=== PATIENT | male | born 1945 | race Caucasian/White ===

== ENCOUNTER 2016-10-11 09:18 | Observation (INO) | payer OTHER ==
[2016-10-11] MEDS ORDERED: NS 1,000 ML IV ONE (09:21)
[2016-10-11] MEDS ORDERED: diphenhydrAMINE 25 MG CAP PO ONE (09:21)
[2016-10-11] MEDS ORDERED: FAMOTIDINE 20 MG TAB PO ONE (09:21)
[2016-10-11] MEDS ORDERED: ASPIRIN EC 325 MG TAB PO ONE (09:21)
[2016-10-11] MEDS ORDERED: DIAZEPAM 5 MG TAB PO ONE (09:21)
--- NOTE | 2016-10-11 09:38 | CPEKG ---
Heart Rate: 75 RR Interval: 800 P-R Interval: 152 QRSD Interval: 90 QT Interval: 364 QTC Interval: 407 P [place]: 64 QRS [place]: -56 T Wave [place]: 52 EKG Severity - ABNORMAL ECG - EKG Impression: SINUS ARRHYTHMIA, RATE 60-87 EKG Impression: LEFT ANTERIOR FASCICULAR BLOCK EKG Impression: LOW VOLTAGE IN FRONTAL LEADS EKG Impression: MINIMAL ST DEPRESSION, ANTEROLATERAL LEADS Preliminary Awaiting MD Review
[2016-10-11] MEDS ORDERED: LIDOCAINE 1% 30 ML SDV ONE (09:51)
[2016-10-11] MEDS ORDERED: IOPAMIDOL (ISOVUE-370) 150 ML BTL IV ONE ×2 (09:52→10:51)
[2016-10-11] MEDS ORDERED: VERAPAMIL 5 MG/2 ML VIAL ONE (09:52)
[2016-10-11] MEDS ORDERED: MIDAZOLAM 2 MG/2 ML VIAL ONE (09:52)
[2016-10-11] MEDS ORDERED: fentaNYL 100 MCG/2 ML INJ ONE (09:52)
[2016-10-11] MEDS ORDERED: HEPARIN 10,000 UNIT/10 ML MDV ONE (09:52)
[2016-10-11 09:54] LABS: % IMMATURE GRANULYOCYTES 0.5 % (0.0-1.1); ABSOLUTE IMMATURE GRANULOCYTES 0.04 10^3/uL (0.00-0.10); ADD DIFF? NO; ADD MORPH? NO; ADD SCAN? NO; ATYPICAL LYMPHOCYTE FLAG 0 (0-99); FRAGMENT RBC FLAG 0 (0-99); HEMATOCRIT 43.8 % (40.0-51.0); HEMOGLOBIN 14.8 g/dL (13.7-17.5); LEFT SHIFT FLG 0 (0-99); LIPEMIA HEMOLYSIS FLAG 90 (0-99); MEAN CELL HEMOGLOBIN 32.5 pg (27.9-34.1); MEAN CELL HEMOGLOBIN CONCENTR. 33.8 g/dL (32.4-36.7); MEAN CELL VOLUME 96.3 fL (81.5-99.8); PLATELET CLUMPS FLAG 0 (0-99); PLATELET COUNT 273 10^3/uL (150-400); RED BLOOD CELL COUNT 4.55 10^6/uL (4.40-6.38); RED CELL DISTRIBUTION WIDTH 14.4 % (11.5-15.2)
[2016-10-11 10:11] LABS: INR 0.97 (0.83-1.16); PROTIME(PATIENT) 12.8 SEC (12.0-15.0)
[2016-10-11 10:15] LABS: ANION GAP 14 mEq/L (8-16); CALCIUM 9.9 mg/dL (8.5-10.4); CARBON DIOXIDE 21 mEq/l (22-31); CHLORIDE 108 mEq/L (97-110); CHOLESTEROL 259 mg/dL (140-220); GLOMERULAR FILTRATION RATE > 60; GLUCOSE 132 mg/dL (70-100); HIGH DENSITY LIPOPROTEIN 37 mg/dL (40-65); LOW DENSITY LIPOPROTEIN 151 mg/dL (80-100); POTASSIUM 4.2 mEq/L (3.5-5.2); SODIUM 143 mEq/L (134-144); TRIGLYCERIDE 355 mg/dL (40-150); VERY LOW DENSITY LIPOPROTEINS 71 mg/dL (8-25)
[2016-10-11 10:16] LABS: LDL/HDL RATIO 4.08 RATIO (1.00-3.64); MAGNESIUM 1.9 mg/dL (1.6-2.3); NON-HIGH DENSITY LIPOPROTEIN 222 mg/dL (90-129)
[2016-10-11] MEDS ORDERED: BIVALIRUDIN 250 MG/5 ML VIAL IV ONE (10:54)
[2016-10-11] MEDS ORDERED: NITROGLYCERIN 1,500 MCG/15 ML VIAL MISC ONE (11:12)
--- NOTE | 2016-10-11 11:40 | CPEKG ---
Heart Rate: 71 RR Interval: 845 P-R Interval: 168 QRSD Interval: 92 QT Interval: 416 QTC Interval: 453 P [place]: 74 QRS [place]: -33 T Wave [place]: 13 EKG Severity - OTHERWISE NORMAL ECG - EKG Impression: SINUS RHYTHM EKG Impression: LEFT AXIS DEVIATION EKG Impression: LOW VOLTAGE IN FRONTAL LEADS Preliminary Awaiting MD Review
[2016-10-11] MEDS ORDERED: OXYCODONE/APAP 5/325 TAB PO PRN (11:42)
[2016-10-11] MEDS ORDERED: PRASUGREL HCL 10 MG TAB PO ONE (11:42)
[2016-10-11] MEDS ORDERED: TEMAZEPAM 15 MG CAP PO PRN (11:42)
[2016-10-11] MEDS ORDERED: ONDANSETRON 4 MG/2 ML VIAL IVP PRN (11:42)
[2016-10-11] MEDS ORDERED: LORazepam 2 MG/ML INJ IVP PRN (11:42)
[2016-10-11] MEDS ORDERED: ATROPINE SULFATE 1 MG/10 ML SYR IVP PRN (11:42)
[2016-10-11] MEDS ORDERED: HYDROCODONE/APAP 5/325 TAB PO PRN (11:42)
[2016-10-11] MEDS ORDERED: PRASUGREL HCL 10 MG TAB ONE (11:48)
--- NOTE | 2016-10-11 13:16 | CPIP ---
DATE OF PROCEDURE: 10/11/2016 PROCEDURES: 1. Coronary angiography. 2. Left ventriculography. 3. Stenting of right coronary artery with Synergy drug-eluting stent. INDICATION: 1. Known coronary artery disease status post previous percutaneous coronary intervention of the cir cumflex and right coronary arteries. 2. Class 3 anginal symptoms. 3. Intermediate risk stress test. 4. Maximally tolerated medical therapy in this gentleman, who has a difficult time tolerating most medications. ACCESS: Patient was prepped and draped in sterile fashion. 1% lidocaine was used to anesthetize th e right inguinal region. A 6-Estonian introducer sheath was placed selectively into the right common femoral artery via modified Seldinger technique. CORONARY ANGIOGRAPHY: A 6-Estonian JL4 was advanced to the left main coronary artery and images obtai yumiko. The left main coronary artery bifurcated into an LAD and circumflex coronary arteries. The le ft main coronary artery appeared normal. The left anterior descending coronary artery gave rise to 2 diagonal branches. The left anterior descending coronary artery is diffusely diseased. In the mi dvessel, a segmental 40% to 50%stenosis can be seen. The diagonal arteries are free of any signific ant disease. Circumflex coronary artery is a large vessel, but is nondominant. Circumflex coronary artery is diffusely diseased. In the proximal segment, there is a long segmental 30% stenosis pres ent. In the mid 1 segment of the vessel, a previously placed stent can be seen. The previously plac ed stent is widely patent with no evidence of in-stent restenosis. In the distal vessel, a previous ly placed stent can be seen. The distal stent is free of any significant in-stent restenosis. The circumflex coronary artery gave rise to 4 OM branches. The OM branches had no significant flow-limi ting disease. A 6-Estonian JR4 was advanced to the right coronary artery and images obtained. The ri ght coronary artery is dominant. The right coronary artery is diffusely diseased. In the proximal segment of the right coronary artery, there is a discrete 76% stenosis present. In the mid 1 segmen t, there is a segmental 30% to 40% stenosis present. In the mid 2 segment, a previously placed sten t can be seen. The previously placed stent was widely patent with no evidence of in-stent restenosi s. LEFT VENTRICULOGRAPHY: A 6-Estonian pigtail catheter was advanced to the left ventricle and images ob tained. Left ventricle is normal in size, had normal systolic function. Estimated ejection fractio n is 65%. PERCUTANEOUS CORONARY INTERVENTION OF THE RIGHT CORONARY ARTERY: A 6-Estonian JR4 with side holes was advanced to the right coronary artery and images obtained. Angiography confirmed the presence of a 76% stenosis in the proximal portion of the right coronary artery. A Luge wire was placed in the d istal vessel and position verified by angiography. A 3.0 x 12 Synergy drug-eluting stent was placed across the lesion and deployed at 16 atmospheres. Followup angiography demonstrated incomplete ashleigh nt expansion in the midportion of the stent. The midportion of the stent was postdilated with a 3.5 x 8 Quantum Clark. COMPLICATIONS: None. CONCLUSIONS: 1. Patent circumflex stents with no evidence of in-stent restenosis. 2. Patent right coronary artery stent with no evidence of in-stent restenosis. 3. De cary 76% stenosis of the proximal right coronary artery. 4. Status post successful percutaneous coronary intervention of the right coronary artery using Syn ergy drug-eluting stent. /[id number]/MODL
[2016-10-11] MEDS ORDERED: NITROGLYCERIN 0.4 MG BTL SL PRN (13:20)
[2016-10-11] MEDS: NICOTINE 14 MG/24 HR PATCH TD SCH (13:24)
[2016-10-11] MEDS ORDERED: LOSARTAN POTASSIUM 50 MG TAB PO SCH (18:00)
[2016-10-11] MEDS ORDERED: traZODone 100 MG TAB PO SCH (21:00)
[2016-10-11] MEDS ORDERED: ABACAVIR SULFATE PO SCH ×2 (21:00)
[2016-10-11] MEDS ORDERED: EFAVIRENZ 600 MG TAB PO SCH (21:00)
[2016-10-11] MEDS ORDERED: LAMIVUDINE PO SCH ×2 (21:00)
[2016-10-12 05:24] LABS: % IMMATURE GRANULYOCYTES 0.3 % (0.0-1.1); ABSOLUTE IMMATURE GRANULOCYTES 0.02 10^3/uL (0.00-0.10); ADD DIFF? NO; ADD MORPH? NO; ADD SCAN? NO; ATYPICAL LYMPHOCYTE FLAG 10 (0-99); FRAGMENT RBC FLAG 0 (0-99); HEMATOCRIT 41.9 % (40.0-51.0); LEFT SHIFT FLG 0 (0-99); LIPEMIA HEMOLYSIS FLAG 80 (0-99); MEAN CELL HEMOGLOBIN 32.9 pg (27.9-34.1); MEAN CELL HEMOGLOBIN CONCENTR. 33.4 g/dL (32.4-36.7); MEAN CELL VOLUME 98.4 fL (81.5-99.8); MEAN PLATELET VOLUME 9.5 fL (8.7-11.7); PLATELET CLUMPS FLAG 0 (0-99); PLATELET COUNT 246 10^3/uL (150-400); RED BLOOD CELL COUNT 4.26 10^6/uL (4.40-6.38); RED CELL DISTRIBUTION WIDTH 14.5 % (11.5-15.2)
[2016-10-12 05:41] LABS: ANION GAP 8 mEq/L (8-16); CALCIUM 9.4 mg/dL (8.5-10.4); CARBON DIOXIDE 26 mEq/l (22-31); CHLORIDE 106 mEq/L (97-110); GLOMERULAR FILTRATION RATE > 60; GLUCOSE 108 mg/dL (70-100); POTASSIUM 4.2 mEq/L (3.5-5.2); SODIUM 140 mEq/L (134-144)
[2016-10-12] MEDS ORDERED: CHOLECALCIFEROL VIT D3 1,000 UNITS TAB PO SCH (09:00)
[2016-10-12] MEDS ORDERED: ASPIRIN EC 325 MG TAB PO SCH ×2 (09:00)
[2016-10-12] MEDS ORDERED: PRASUGREL HCL 10 MG TAB PO SCH ×2 (09:00)
--- NOTE | 2016-10-12 09:08 | CPEKG ---
Heart Rate: 66 RR Interval: 909 P-R Interval: 160 QRSD Interval: 94 QT Interval: 424 QTC Interval: 445 P [place]: 60 QRS [place]: -23 T Wave [place]: 3 EKG Severity - OTHERWISE NORMAL ECG - EKG Impression: SINUS RHYTHM EKG Impression: BORDERLINE LEFT AXIS DEVIATION Preliminary Awaiting MD Review
[2016-10-12] MEDS: NICOTINE 14 MG/24 HR PATCH TD SCH (09:45)
[2016-10-12 11:23] VITALS: BP 132/74; PULSE 85; RESP 12; TEMP 99.1; O2SAT 92
--- NOTE | 2016-10-12 18:27 | GDS ---
ADMIT DIAGNOSES: 1. Known coronary artery disease. 2. Class 3 anginal symptoms. 3. Plan cardiac angiogram with possible percutaneous coronary intervention. DISCHARGE DIAGNOSES: 1. Coronary artery disease. 2. Status post placement of Synergy drug-eluting stent of the right coronary artery with no complications. COURSE OF HOSPITALIZATION: This gentleman is well known to Dr. Demond Miller. He was seen in clinic with symptoms of angina. He had an intermediate risk stress test done. It was recommended that he proceed for further cardiac evaluation with cardiac angiogram. Mr. Nath was in agreement with this plan. He was taken to the [facility] lab[facility] by Dr. Demond Miller on 10/11/2016. In the proximal segment of the right coronary artery, a 76% stenosis was present. A previously placed stent was widely patent in the vessel. No evidence of in- stent restenosis. Dr. Miller was able to place a Synergy drug-eluting stent across the lesion in the proximal portion of the right coronary artery. There were no complications. He was taken to PCU for overnight observation where he has done well. He has been ambulating the halls with no bleeding or tenderness of the groin sites. At this time, he is stable for discharge. ALLERGIES: He has intolerance to statins. HOME MEDICATIONS: Paxil 30 mg daily, Sustiva 600 mg at HS, vitamin D3 2000 units daily, Valium 5 mg as needed at bedtime, Effient 10 mg daily, trazodone 50 mg at bedtime, Imodium 4 mg daily, morphine IR 7.5 mg daily as needed for pain, herbal supplements daily, Depo-testosterone 100 mg IM every 14 days, aspirin 325 mg daily, Tylenol 325 mg 1-2 tablets every 4 hours as needed for pain, not to exceed 3 g daily, Cozaar 50 mg daily, NicoDerm CQ patch 14 mg transdermal daily. EXAM: VITAL SIGNS: On day of discharge, blood pressure 132/74, heart rate 85 and regular, oxygen saturation 92%, temperature 37.3. EKG shows normal sinus rhythm with no ectopy. HEART: Rate regular; no murmurs, rubs, gallops. LUNGS : Sounds are clear to auscultation. No wheezes, rales, or rhonchi. Right groin site is intact with no bleeding, induration or tenderness. No femoral bruit is noted. Peripheral pulses bilaterally 2+. DISCHARGE PLAN: He will follow up in [address] Miller on Tuesday, October 20 at our [facility] office. Groin site instructions were provided, written and verbally. No heavy lifting, pushing, pulling greater than 10 pounds. No tub baths over the next 7 days. Should groin site bleed, go to the nearest emergency room, holding firm pressure to the site. Recommendation for participation in cardiac rehab. He is to follow a low-fat, low-sodium diet. Should he have any problems or questions, he is to call our office. At this time, he currently is stable for discharge. /[id number]/MODL MTDD
== END 2016-10-12 13:44 | disposition home or self-care (01) ==
LOC: FCATH 09:18 → F2W 11:44
PROVIDERS: ADMIT Internal Medicine Cardiovascular Disease; ATTEND Internal Medicine Cardiovascular Disease
PROC: 4A023N7 Measurement of Cardiac Sampling and Pressure, Left Heart, Percutaneous Approach (ICD-10-PCS; principal; 2016-10-11)
PROC: B2151ZZ Fluoroscopy of Left Heart using Low Osmolar Contrast (ICD-10-PCS; principal; 2016-10-11)
PROC: 027034Z Dilation of Coronary Artery, One Artery with Drug-eluting Intraluminal Device, Percutaneous Approach (ICD-10-PCS; principal; 2016-10-11)
PROC: B2111ZZ Fluoroscopy of Multiple Coronary Arteries using Low Osmolar Contrast (ICD-10-PCS; principal; 2016-10-11)
DX: I25.119 Atherosclerotic heart disease of native coronary artery with unspecified angina pectoris (principal)
CPT/HCPCS: 93005; 93458; C1725; C1760; C1769; C1874; C1887; C9600; G0378; J0583; J1644; J2250; J3010; Q9967

== ENCOUNTER → 2017-04-18 | Outpatient (CLI) | payer OTHER | LOC: FIMAGING 16:35 | PROVIDERS: ATTEND Nurse Practitioner | DX: J98.11 Atelectasis (principal) ==

== ENCOUNTER 2017-05-10 08:46 | Observation (INO) | payer OTHER ==
[2017-05-10] MEDS ORDERED: diphenhydrAMINE 25 MG CAP PO ONE ×2 (08:51→09:19)
[2017-05-10] MEDS ORDERED: DIAZEPAM 5 MG TAB PO ONE (08:51)
[2017-05-10] MEDS ORDERED: ASPIRIN EC 325 MG TAB PO ONE (08:51)
[2017-05-10] MEDS ORDERED: NS 1,000 ML IV ONE (08:51)
[2017-05-10] MEDS ORDERED: FAMOTIDINE 20 MG TAB PO ONE (08:51)
[2017-05-10] MEDS ORDERED: FAMOTIDINE 20 MG TAB ONE (09:19)
[2017-05-10] MEDS ORDERED: DIAZEPAM 5 MG TAB ONE (09:20)
--- NOTE | 2017-05-10 09:21 | CPEKG ---
Heart Rate: 90 RR Interval: 667 P-R Interval: 160 QRSD Interval: 94 QT Interval: 368 QTC Interval: 451 P [place]: 70 QRS [place]: -24 T Wave [place]: 27 EKG Severity - OTHERWISE NORMAL ECG - EKG Impression: SINUS RHYTHM EKG Impression: BORDERLINE LEFT AXIS DEVIATION Electronically Signed By: Min Rashid 10-May-2017 10:43:03
[2017-05-10 09:28] LABS: % IMMATURE GRANULYOCYTES 0.5 % (0.0-1.1); ABSOLUTE IMMATURE GRANULOCYTES 0.04 10^3/uL (0.00-0.10); ADD DIFF? NO; ADD MORPH? NO; ADD SCAN? NO; ATYPICAL LYMPHOCYTE FLAG 0 (0-99); FRAGMENT RBC FLAG 0 (0-99); HEMATOCRIT 41.5 % (40.0-51.0); HEMOGLOBIN 13.5 g/dL (13.7-17.5); LEFT SHIFT FLG 0 (0-99); LIPEMIA HEMOLYSIS FLAG 80 (0-99); MEAN CELL HEMOGLOBIN 30.8 pg (27.9-34.1); MEAN CELL HEMOGLOBIN CONCENTR. 32.5 g/dL (32.4-36.7); MEAN CELL VOLUME 94.7 fL (81.5-99.8); MEAN PLATELET VOLUME 9.1 fL (8.7-11.7); PLATELET CLUMPS FLAG 0 (0-99); PLATELET COUNT 301 10^3/uL (150-400); RED BLOOD CELL COUNT 4.38 10^6/uL (4.40-6.38); RED CELL DISTRIBUTION WIDTH 14.9 % (11.5-15.2)
[2017-05-10 09:37] LABS: INR 0.96 (0.83-1.16); PROTIME(PATIENT) 12.7 SEC (12.0-15.0)
[2017-05-10 09:44] LABS: ANION GAP 14 mEq/L (8-16); CALCIUM 10.1 mg/dL (8.5-10.4); CARBON DIOXIDE 21 mEq/l (22-31); CHLORIDE 105 mEq/L (97-110); CHOLESTEROL 246 mg/dL (140-220); CHOLESTEROL/HDL RATIO 6.31 RATIO (1.00-4.97); CREATININE 1.2 mg/dL (0.7-1.3); GLOMERULAR FILTRATION RATE 60; GLUCOSE 125 mg/dL (70-100); HIGH DENSITY LIPOPROTEIN 39 mg/dL (40-65); LDL/HDL RATIO 3.67 RATIO (1.00-3.64); LOW DENSITY LIPOPROTEIN 143 mg/dL (80-100); NON-HIGH DENSITY LIPOPROTEIN 207 mg/dL (90-129); POTASSIUM 4.1 mEq/L (3.5-5.2); SODIUM 140 mEq/L (134-144); TRIGLYCERIDE 324 mg/dL (40-150); VERY LOW DENSITY LIPOPROTEINS 64 mg/dL (8-25)
[2017-05-10] MEDS ORDERED: IOPAMIDOL (ISOVUE-370) 150 ML BTL IV ONE (09:50)
[2017-05-10] MEDS ORDERED: LIDOCAINE 1% 300 MG/30 ML SDV ONE (09:50)
[2017-05-10] MEDS ORDERED: fentaNYL 100 MCG/2 ML INJ ONE (09:59)
[2017-05-10] MEDS ORDERED: MIDAZOLAM 2 MG/2 ML VIAL ONE (09:59)
--- NOTE | 2017-05-10 10:12 | PDPROPOC ---
Sedation Plan of Care Sedation Plan of Care: vital signs stable, mental status noted, patient educated of risks, benefits, alternatives, patient can tolerate sedation ASA Classification: ASA 2 Planned drugs: fentanyl, midazolam Mallampati Score: Class 2 Mallampati Reference Image: Patient passed 3-3-2 rule?: Yes
--- NOTE | 2017-05-10 10:12 | PDHPUP ---
History & Physical Update H&P update statement: This history and physical update is based on an assessment of the patient which was completed after admission or registration (within 24 hours), but prior to the surgery/procedure. H&P update: H&P reviewed & patient examined, no change in patient's condition since H&P completed
[2017-05-10] MEDS ORDERED: BIVALIRUDIN 250 MG/5 ML VIAL IV ONE (10:48)
[2017-05-10] MEDS ORDERED: NITROGLYCERIN 1,500 MCG/15 ML VIAL MISC ONE (10:48)
[2017-05-10] MEDS ORDERED: PRASUGREL HCL 10 MG TAB ONE (11:11)
[2017-05-10] MEDS ORDERED: ATROPINE SULFATE 1 MG/10 ML SYR IVP PRN (11:25)
[2017-05-10] MEDS ORDERED: LORazepam 2 MG/ML INJ IVP PRN (11:25)
[2017-05-10] MEDS ORDERED: TEMAZEPAM 15 MG CAP PO PRN (11:25)
[2017-05-10] MEDS ORDERED: ONDANSETRON 4 MG/2 ML VIAL IVP PRN (11:25)
[2017-05-10] MEDS ORDERED: NITROGLYCERIN 0.4 MG BTL SL PRN (11:25)
[2017-05-10] MEDS ORDERED: TESTOSTERONE CYP IM SCH (11:30)
--- NOTE | 2017-05-10 11:53 | CPEKG ---
Heart Rate: 79 RR Interval: 759 P-R Interval: 168 QRSD Interval: 94 QT Interval: 396 QTC Interval: 455 P [place]: 71 QRS [place]: -28 T Wave [place]: -6 EKG Severity - BORDERLINE ECG - EKG Impression: SINUS RHYTHM EKG Impression: BORDERLINE LEFT AXIS DEVIATION EKG Impression: LOW VOLTAGE IN FRONTAL LEADS EKG Impression: BORDERLINE T ABNORMALITIES, INFERIOR LEADS Electronically Signed By: Min Rashid 10-May-2017 12:00:58
--- NOTE | 2017-05-10 11:59 | CPIP ---
[f rep st] INVASIVE CARDIAC PROCEDURE DATE OF PROCEDURE: 05/10/2017 PROCEDURE: 1. Coronary angiography. 2. Left ventriculography. 3. Stenting of circumflex coronary artery with Synergy drug-eluting stent. INDICATION: 1. Class 3 angina. 2. Known coronary artery disease. 3. On maximally tolerated medical therapy. ACCESS: The patient was prepped and draped in sterile fashion. 1% lidocaine was used to anesthetize the right inguinal region. A 6-Colombian introducer sheath was placed selectively into the right commo n femoral artery via modified Seldinger technique. CORONARY ANGIOGRAPHY: A 6-Colombian JL4 was advanced to the left main coronary artery and images obtain ed. The left main coronary artery bifurcated into LAD and circumflex coronary arteries. The left ma in coronary artery appeared normal. The left anterior descending coronary artery is diffusely diseas ed. In the midvessel, there is a long segmental 40% to 50% stenosis present. The left anterior desc ending coronary artery gave rise to 3 diagonal branches. The diagonal branches were free of any sign ificant disease. The circumflex coronary artery is a large vessel, but was nondominant. Circumflex coronary artery was diffusely diseased. In the mid 1 segment, a previously placed stent can be seen. The previously placed stent is widely patent, with no evidence of in-stent restenosis. In the mid 2 segment, there is a de Vadim 80% stenosis present with TOVA-3 flow distally. A 6-Colombian JR4 was advanced to the right coronary artery and it was obtained. The right coronary art jose martin is diffusely diseased. In the proximal segment, a previously placed stent can be seen. The prev iously placed stent is widely patent with no evidence of in-stent restenosis. In the mid 2 segment, a previously placed stent can be seen. The previously placed stent is widely patent with no evidence of in-stent restenosis. In the mid segment, there is a long segmental 30% to 40% stenosis present. LEFT VENTRICULOGRAPHY: A 6-Colombian pigtail catheter was advanced in the left ventricle and images obt ained. The left ventricle is normal in size and has normal systolic function, with an estimated ejec tion fraction of 60%. PERCUTANEOUS CORONARY INTERVENTION OF THE CIRCUMFLEX CORONARY ARTERY: A 6-Colombian EBU 3.75 catheter w as advanced to the left main coronary artery and images obtained. Angiography demonstrated 80% steno sis in the mid 2 segment of the circumflex coronary artery. A Luge wire was placed in the distal vessel and position verified by angiography. The lesion was pre dilated with a 2.5 x 12 Emerge balloon. Followup angiography demonstrated TOVA-3 flow. However, the re was significant residual stenosis. A 2.75 x 12 Synergy drug-eluting stent was then placed across the lesion and deployed. Followup serafin ography demonstrated TOVA-3 flow. No residual stenosis. COMPLICATIONS: None. CONCLUSIONS: 1. Patent right coronary artery stents. 2. 80% stenosis in the mid 2 segment of the circumflex coronary artery. 3. Normal left ventricular systolic function. 4. Status post successful percutaneous coronary intervention of the circumflex coronary artery using Synergy drug-eluting stents. /[id number]/MODL
--- NOTE | 2017-05-10 15:08 | ASMTCMCOM ---
CM Note CM Note Notes: 05/10/2017 Case Management Note: Reviewed chart, pt admitted for scheduled procedure. No case management d/c needs identified at this time. No PT/OT evals ordered. Case Management d/c poc: Home Independent when medically stable. Case Management available if needs change. Date Signed: 05/10/2017 03:07 PM Electronically Signed By:Gina Bergman RN
[2017-05-10] MEDS: HYDROCORTISONE 1% CREAM TP SCH (20:29)
[2017-05-10] MEDS ORDERED: traZODone 50 MG TAB PO SCH (21:00)
[2017-05-10] MEDS ORDERED: EFAVIRENZ 600 MG TAB PO SCH (21:00)
[2017-05-10] MEDS ORDERED: ABACAVIR SULFATE PO SCH ×2 (21:00)
[2017-05-10] MEDS ORDERED: OMEGA-3 FATTY ACIDS 1,000 MG CAP PO SCH (21:00)
[2017-05-10] MEDS ORDERED: LAMIVUDINE PO SCH ×2 (21:00)
[2017-05-10] MEDS ORDERED: LOSARTAN POTASSIUM 25 MG TAB PO SCH (21:00)
[2017-05-11 05:39] LABS: % IMMATURE GRANULYOCYTES 0.3 % (0.0-1.1); ABSOLUTE IMMATURE GRANULOCYTES 0.02 10^3/uL (0.00-0.10); ADD DIFF? NO; ADD MORPH? NO; ADD SCAN? NO; ATYPICAL LYMPHOCYTE FLAG 10 (0-99); FRAGMENT RBC FLAG 0 (0-99); HEMATOCRIT 39.5 % (40.0-51.0); HEMOGLOBIN 12.7 g/dL (13.7-17.5); LEFT SHIFT FLG 0 (0-99); LIPEMIA HEMOLYSIS FLAG 80 (0-99); MEAN CELL HEMOGLOBIN 30.5 pg (27.9-34.1); MEAN CELL HEMOGLOBIN CONCENTR. 32.2 g/dL (32.4-36.7); MEAN CELL VOLUME 94.7 fL (81.5-99.8); MEAN PLATELET VOLUME 9.2 fL (8.7-11.7); PLATELET CLUMPS FLAG 10 (0-99); PLATELET COUNT 274 10^3/uL (150-400); RED BLOOD CELL COUNT 4.17 10^6/uL (4.40-6.38); RED CELL DISTRIBUTION WIDTH 14.8 % (11.5-15.2)
[2017-05-11 05:49] LABS: ANION GAP 9 mEq/L (8-16); CALCIUM 9.7 mg/dL (8.5-10.4); CARBON DIOXIDE 25 mEq/l (22-31); CHLORIDE 104 mEq/L (97-110); CREATININE 1.3 mg/dL (0.7-1.3); GLOMERULAR FILTRATION RATE 55; GLUCOSE 89 mg/dL (70-100); POTASSIUM 4.7 mEq/L (3.5-5.2); SODIUM 138 mEq/L (134-144)
[2017-05-11 07:41] VITALS: TEMP 97.4
[2017-05-11] MEDS: HYDROCORTISONE 1% CREAM TP SCH (07:51)
--- NOTE | 2017-05-11 08:32 | CPEKG ---
Heart Rate: 75 RR Interval: 800 P-R Interval: 156 QRSD Interval: 94 QT Interval: 400 QTC Interval: 447 P [place]: 67 QRS [place]: -30 T Wave [place]: 12 EKG Severity - OTHERWISE NORMAL ECG - EKG Impression: SINUS RHYTHM EKG Impression: LEFT AXIS DEVIATION Electronically Signed By: Min Rashid 11-May-2017 11:21:19
[2017-05-11] MEDS ORDERED: ASPIRIN EC 325 MG TAB PO SCH (09:00)
[2017-05-11] MEDS ORDERED: CHOLECALCIFEROL VIT D3 1,000 UNITS TAB PO SCH (09:00)
[2017-05-11] MEDS ORDERED: PRASUGREL HCL 10 MG TAB PO SCH (09:00)
[2017-05-11 12:02] VITALS: BP 117/74; PULSE 74; RESP 18; O2SAT 94
--- NOTE | 2017-05-11 20:46 | GDS ---
[f rep st] DISCHARGE SUMMARY REASON FOR ADMIT: 1. Coronary artery disease. 2. Planned cardiac angiogram with possible percutaneous coronary intervention. 3. Hypertension. 4. Hyperlipidemia. DISCHARGE DIAGNOSES: 1. Coronary artery disease. 2. Status post percutaneous coronary intervention of the right coronary artery with drug-eluting stent. 3. Hypertension. 4. Hyperlipidemia. HOSPITAL COURSE: This gentleman was seen in clinic by Dr. Demond Cope. He had episodes of chest discomfort consistent with cardiac angina. It was recommended to proceed with a cardiac angiogram and possible stent placement. He was in agreement with this plan. He was taken to the recyclable materials distributor by Dr. Demond Cope on 05/10/2017, where he did find 80% blockage of the circumflex. RCA stents were patent. Left ventricular function was normal. There were no complications. He was then taken to PCU for overnight observation, where he has done well. He has been up ambulating with no groin site bleeding or tenderness. At this time, he currently is stable for discharge. ALLERGIES: He is intolerant to statins. MEDICATIONS: He will go home on Paxil 30 mg daily, Abacavir Sulfate 600 mg at bedtime, vitamin D3 2000 units daily, Epzicom tablet 1 at bedtime, trazodone 50 mg at bedtime, herbal supplements 1 daily, testosterone 100 mg IM every 14 days , aspirin 325 mg daily, Celebrex 200 mg at bedtime, [place]-3 fatty acids 1000 mg at bedtime, [place]-3 fatty acids 2000 mg daily, melatonin 9 mg at bedtime, losartan 25 mg at bedtime, hydrocortisone topical 1 application twice daily, Effient 10 mg at bedtime. PHYSICAL EXAMINATION: VITAL SIGNS: On day of discharge, blood pressure 117/74 , heart rate 74 and regular, oxygen saturation 94%. EKG normal sinus rhythm. HEART: Rate regular. No murmurs, rubs, gallops. LUNGS: Sounds are clear to auscultation. No wheezes, rales, or rhonchi. EXTREMITIES: Groin site is intact with no bleeding, induration or tenderness. Peripheral pulses are 2+ bilateral with no edema. INVASIVE CARDIAC PROCEDURES: 1. May 10, 2017, coronary angiography. 2. Left ventriculography. 3. Stenting of circumflex coronary artery with Synergy drug-eluting stent. INDICATION: 1. Class 3 angina. 2. Known coronary artery disease. 3. On maximally tolerated medical therapy. A drug-eluting stent was placed to the circumflex with 80% stenosis noted. RCA stents previously placed were patent. Normal left ventricular function was noted. There were no complications. DISCHARGE PLAN: He will not go home on lipid medication as he is intolerant to simvastatin, Lipitor, ezetimibe, Crestor. He instead is on fish oil. His triglycerides were 324, total cholesterol 246, LDL 143, HDL 39. He is encouraged to participate in cardiac rehab. He however is not interested due to his work schedule. He is asked to follow a strict well balanced, low-fat, low-sodium diet. Continue on fish oil due to intolerance to multiple statin medications. Follow up in clinic in 7-[address] Cope. At this time, he currently is stable for discharge. /[id number]/MODL MTDD
--- NOTE | 2017-05-12 08:42 | ASDISCHSUM ---
Discharge Information Plan Status:Home with No Needs Medically Cleared to Leave:05/11/2017 Discharge Date:05/11/2017 12:29 PM CM D/C Disposition:Home, Routine, Self-Care ADT D/C Disposition:Home, Routine, Self-Care Projected Discharge Date:05/11/2017 12:00 AM Transportation at D/C:Family Discharge Delay Reason: Follow-Up Date:05/11/2017 12:00 AM Discharge Slot: Final Diagnosis: Placement Information Patient Contact Information Contact Name:RONALDO Relationship:Gabe Address: Work Phone: City: [facility] Phone: State/[employer] Code: Email: Financial Information Financial Class:Medicare Advantage Plans Primary Plan Desc:[employer] PPO MEDICARE Primary Plan Number:[id number] Secondary Plan Desc: Secondary Plan Number: Assessment Information [facility] CM Progress Note CM Note CM Note Notes: 05/10/2017 Case Management Note: Reviewed chart, pt admitted for scheduled procedure. No case management d/c needs identified at this time. No PT/OT evals ordered. Case Management d/c poc: Home Independent when medically stable. Case Management available if needs change. Date Signed: 05/10/2017 03:07 PM Electronically Signed By:Gina Bergman RN Intervention Information Intervention Type:*FABIANO-Signed Date of Service:05/11/2017 09:20 AM Patient Type:Observation Staff Member:Ingrid Santos Hours: Discipline: Severity: Comment:
== END 2017-05-11 12:29 | disposition home or self-care (01) ==
LOC: FCATH 08:46 → F2W 11:26
PROVIDERS: ADMIT Internal Medicine Cardiovascular Disease; ATTEND Internal Medicine Cardiovascular Disease
PROC: B2151ZZ Fluoroscopy of Left Heart using Low Osmolar Contrast (ICD-10-PCS; principal; 2017-05-10)
PROC: 027034Z Dilation of Coronary Artery, One Artery with Drug-eluting Intraluminal Device, Percutaneous Approach (ICD-10-PCS; principal; 2017-05-10)
PROC: 4A023N7 Measurement of Cardiac Sampling and Pressure, Left Heart, Percutaneous Approach (ICD-10-PCS; principal; 2017-05-10)
PROC: B2111ZZ Fluoroscopy of Multiple Coronary Arteries using Low Osmolar Contrast (ICD-10-PCS; principal; 2017-05-10)
DX: I25.119 Atherosclerotic heart disease of native coronary artery with unspecified angina pectoris (principal); I10 Essential (primary) hypertension; E78.5 Hyperlipidemia, unspecified; F17.200 Nicotine dependence, unspecified, uncomplicated; Z82.49 Family history of ischemic heart disease and other diseases of the circulatory system; Z95.5 Presence of coronary angioplasty implant and graft; Z79.82 Long term (current) use of aspirin
CPT/HCPCS: 93005; 93458; C1725; C1760; C1769; C1874; C1887; C9600; G0378; J0583; J1644; J2250; J3010; Q9967

== ENCOUNTER 2017-05-24 06:34 | Day surgery (SDC) | payer OTHER ==
[2017-05-24] MEDS ORDERED: NS 1,000 ML IV ONE (06:38)
[2017-05-24] MEDS ORDERED: FAMOTIDINE 20 MG TAB PO ONE (06:38)
[2017-05-24] MEDS ORDERED: DIAZEPAM 5 MG TAB PO ONE (06:38)
[2017-05-24] MEDS ORDERED: ASPIRIN EC 325 MG TAB PO ONE (06:38)
[2017-05-24] MEDS ORDERED: diphenhydrAMINE 25 MG CAP PO ONE (06:38)
--- NOTE | 2017-05-24 07:00 | CPEKG ---
Heart Rate: 91 RR Interval: 659 P-R Interval: 148 QRSD Interval: 96 QT Interval: 372 QTC Interval: 458 P [place]: 66 QRS [place]: -40 T Wave [place]: 26 EKG Severity - ABNORMAL ECG - EKG Impression: SINUS RHYTHM EKG Impression: LEFT ANTERIOR FASCICULAR BLOCK EKG Impression: ST DEPRESSION, ANTEROLATERAL LEADS EKG Impression: STT WAVE CHANGES ARE MORE PRONOUNCED IN THIS ECG IN COMPARISON TO PRIOR Electronically Signed By: Demnod Silva 26-May-2017 13:47:27
[2017-05-24 07:13] LABS: % IMMATURE GRANULYOCYTES 0.3 % (0.0-1.1); ABSOLUTE IMMATURE GRANULOCYTES 0.02 10^3/uL (0.00-0.10); ADD DIFF? NO; ADD MORPH? NO; ADD SCAN? NO; ATYPICAL LYMPHOCYTE FLAG 10 (0-99); FRAGMENT RBC FLAG 0 (0-99); HEMATOCRIT 40.4 % (40.0-51.0); HEMOGLOBIN 13.6 g/dL (13.7-17.5); LEFT SHIFT FLG 0 (0-99); LIPEMIA HEMOLYSIS FLAG 80 (0-99); MEAN CELL HEMOGLOBIN 30.8 pg (27.9-34.1); MEAN CELL HEMOGLOBIN CONCENTR. 33.7 g/dL (32.4-36.7); MEAN CELL VOLUME 91.6 fL (81.5-99.8); MEAN PLATELET VOLUME 8.7 fL (8.7-11.7); PLATELET CLUMPS FLAG 30 (0-99); PLATELET COUNT 285 10^3/uL (150-400); RED BLOOD CELL COUNT 4.41 10^6/uL (4.40-6.38); RED CELL DISTRIBUTION WIDTH 14.9 % (11.5-15.2)
[2017-05-24] MEDS ORDERED: LIDOCAINE 1% 300 MG/30 ML SDV ONE (07:14)
[2017-05-24] MEDS ORDERED: fentaNYL 100 MCG/2 ML INJ ONE ×2 (07:14→08:53)
[2017-05-24] MEDS ORDERED: IOPAMIDOL (ISOVUE-370) 150 ML BTL IV ONE (07:14)
[2017-05-24] MEDS ORDERED: MIDAZOLAM 2 MG/2 ML VIAL ONE (07:14)
[2017-05-24 07:24] LABS: PROTIME(PATIENT) 13.1 SEC (12.0-15.0)
[2017-05-24 07:27] LABS: ANION GAP 14 mEq/L (8-16); CALCIUM 9.5 mg/dL (8.5-10.4); CARBON DIOXIDE 21 mEq/l (22-31); CHLORIDE 106 mEq/L (97-110); CHOLESTEROL 252 mg/dL (140-220); CHOLESTEROL/HDL RATIO 6.63 RATIO (1.00-4.97); CREATININE 1.1 mg/dL (0.7-1.3); GLOMERULAR FILTRATION RATE > 60; GLUCOSE 135 mg/dL (70-100); HIGH DENSITY LIPOPROTEIN 38 mg/dL (40-65); LDL/HDL RATIO 3.87 RATIO (1.00-3.64); LOW DENSITY LIPOPROTEIN 147 mg/dL (80-100); MAGNESIUM 1.8 mg/dL (1.6-2.3); NON-HIGH DENSITY LIPOPROTEIN 214 mg/dL (90-129); POTASSIUM 3.8 mEq/L (3.5-5.2); SODIUM 141 mEq/L (134-144); TRIGLYCERIDE 338 mg/dL (40-150); VERY LOW DENSITY LIPOPROTEINS 67 mg/dL (8-25)
--- NOTE | 2017-05-24 07:52 | PDHPUP ---
History & Physical Update H&P update statement: This history and physical update is based on an assessment of the patient which was completed after admission or registration (within 24 hours), but prior to the surgery/procedure. H&P update: H&P reviewed & patient examined, no change in patient's condition since H&P completed (left radial artery access.)
--- NOTE | 2017-05-24 07:53 | PDPROPOC ---
Sedation Plan of Care Sedation Plan of Care: vital signs stable, mental status noted, patient educated of risks, benefits, alternatives, patient can tolerate sedation ASA Classification: ASA 2 Planned drugs: fentanyl, midazolam Mallampati Score: Class 1 Mallampati Reference Image: Patient passed 3-3-2 rule?: Yes (adentureless)
[2017-05-24] MEDS ORDERED: HEPARIN 10,000 UNIT/10 ML MDV ONE ×2 (08:04→08:59)
[2017-05-24] MEDS ORDERED: NITROGLYCERIN 1,500 MCG/15 ML VIAL MISC ONE (08:04)
[2017-05-24] MEDS ORDERED: ADENOSINE 90 MG/30 ML VIAL IV ONE ×2 (08:04→09:01)
[2017-05-24] MEDS ORDERED: VERAPAMIL 5 MG/2 ML VIAL ONE (08:04)
[2017-05-24] MEDS ORDERED: NITROGLYCERIN 0.4 MG BTL SL PRN (09:25)
[2017-05-24] MEDS ORDERED: ATROPINE SULFATE 1 MG/10 ML SYR IVP PRN (09:25)
--- NOTE | 2017-05-24 09:33 | PDDXCAT ---
Diagnostic Cath Note - . Date: 05/24/17 Staff Development Educator: Wilman Indication: CCC Class III and IV angina on medical treatment, other (Status post PCI of the circumflex query complication of stent PCI) - Procedure Access: left wrist Procedure: left heart catheterization, coronary angiography, left ventriculogram - Materials Left Heart Cath size: 6F Left Heart Cath materials: JL4.0, JR4.0, pigtail - Findings-Left Heart Catheterization LM: Short unobstructed LAD: Diffusely diseased mid vessel stenosis of up to 80% LCX: Circ stent widely patent. Proximal 75% stenosis diffuse over long segment involving the ostium RCA: Proximal 70% stenosis. Stents widely patent EDP: 18 mm of mercury post procedure LVEF: 70 percent Wall motion: Normal Complications: None Estimated blood loss: <50ml Closure method: TR Band Assessment: 1. Widely patent site of prior stenting. 2. Significant mid LAD, proximal circumflex, proximal RCA stenosis by angiography. 3. Normal LV systolic function postprocedure. Procedure: Please see the attached computer report. Contrast: 130 cc. Sedation: 4 mg Versed 200 mcg fentanyl. Radiation : 16.4 minutes of fluoroscopy, 706 mGy Plan: Indeterminate LAD, proximal circ, proximal RCA disease in the setting of recent PCI of the circumflex without resolution of symptoms. Plan for FFR assessment of the right coronary artery proximal circ mid LAD stenosis. Intervention: Procedure: FFR assessment of the right coronary, lad, circumflex. After reviewing diagnostic angiograms it was elected to proceed with FFR assessment of all 3 epicardial vessels in the setting of indeterminate angiograms, failure to improve symptoms after PCI of the circumflex. A 6 Italian JR4 guiding catheter was used to intubate the right coronary. After equalizing pressure an FFR wire was placed distal to the stents. Patient was administered adenosine intravenously. Fractional flow reserve was 0.89. Wire was withdrawn. Using a 6 Italian JL4 guiding catheter this was advanced to the left main coronary artery. There was some limitation to advancement in the mid arm. With gentle rotation the catheter easily advanced to the left main. Using a FFR flow wire the circumflex artery stenosis was crossed and the wire placed beyond recent stenting. Patient was administered intravenous adenosine with a fractional flow reserve of 0.79. Our attention was then turned to the left anterior descending coronary artery. The FFR wire was placed in the distal portion. Patient was administered adenosine with a fractional flow reserve of 0.75. Flow wire was withdrawn. Therapeutic ACT was confirmed. 6 Italian pigtail catheter was used to cross the aortic valve. Left ventricular end- diastolic pressure was measured. Left ventricular angiogram was performed. Catheters were withdrawn over the wires. Sheath was removed using a TR band. Patient had no discomfort in the arm or chest at the end of the procedure. He is taken to recovery for continued care. Conclusions: Diffuse severe coronary artery disease involving the LAD, circumflex proximal to site of prior stenting. Moderate right coronary artery disease proximal to previous stents. Confirmed by fractional flow reserve. Recommendations are for coronary artery bypass grafting versus recurrent repeat multivessel PCI. Will discuss with the patient, Dr. Padgett and Dr. Tinoco. He will be presented at surgical conference tomorrow. For now will continue aggressive medical therapy. Patient Problems: Problems Problem Status Onset CAD S/P percutaneous coronary angioplasty Acute CAD (coronary artery disease) Acute Chest pain Acute HIV (human immunodeficiency virus infection) Acute Hypertension Acute
== END 2017-05-24 15:00 | disposition home or self-care (01) ==
LOC: FCATH 06:34
PROVIDERS: ATTEND Internal Medicine Interventional Cardiology
PROC: 4A023N7 Measurement of Cardiac Sampling and Pressure, Left Heart, Percutaneous Approach (ICD-10-PCS; principal; 2017-05-24)
PROC: 4A1335C Monitoring of Arterial Flow, Coronary, Percutaneous Approach (ICD-10-PCS; principal; 2017-05-24)
PROC: B2111ZZ Fluoroscopy of Multiple Coronary Arteries using Low Osmolar Contrast (ICD-10-PCS; principal; 2017-05-24)
PROC: B2151ZZ Fluoroscopy of Left Heart using Low Osmolar Contrast (ICD-10-PCS; principal; 2017-05-24)
DX: I25.119 Atherosclerotic heart disease of native coronary artery with unspecified angina pectoris (principal); I10 Essential (primary) hypertension; E78.5 Hyperlipidemia, unspecified; F17.200 Nicotine dependence, unspecified, uncomplicated; E11.9 Type 2 diabetes mellitus without complications; I73.9 Peripheral vascular disease, unspecified; E55.9 Vitamin D deficiency, unspecified; B20 Human immunodeficiency virus [HIV] disease; Z79.82 Long term (current) use of aspirin; Z82.49 Family history of ischemic heart disease and other diseases of the circulatory system; Z95.5 Presence of coronary angioplasty implant and graft
CPT/HCPCS: 93005; 93458; 93571; 93572; C1769; C1887; J0153; J1644; J2250; J3010; Q9967

== ENCOUNTER 2017-06-08 07:08 | Inpatient (IN) | payer OTHER ==
[~2017-06-08 07:08] MED LIST: ADENOSINE 6 MG/2 ML VIAL ONE; ALBUMIN 5% 250 ML BOTTLE IV ONE; AMINOCAPROIC ACID 5 GM/20 ML VIAL IV ONE; AMINOCAPROIC ACID 5 GM/20 ML VIAL ONE; AMIODARONE HCL 150 MG/3 ML VIAL ONE; CALCIUM CHLORIDE 1 GM/10 ML INJ ONE; CITRATE DEXTROSE SOLN 500 ML BAG MISC ONE; CITRATE DEXTROSE SOLN 500 ML BAG ONE; DOPamine/DEXTROSE/250 ML BAG IV ONE; HEPARIN 10,000 UNIT/10 ML MDV ONE; INSULIN REGULAR HUMAN 100 UNIT in NS 100 ML IV ONE; LIDOCAINE 2% 100 MG/5 ML SYR ONE; MAGNESIUM SULFATE 1 GM/2 ML VIAL ONE; MANNITOL 25% 12.5 GM/50 ML VIAL IVP ONE; MILRINONE/DEXTROSE/100 ML BAG IV ONE; MUPIROCIN 2% 22 GM OINT NS ONE; NA BICARBONATE 50 MEQ/50 ML VIAL ONE; NOREPINEPHRINE BITARTRATE 16 MG in NS 250 ML IV ONE; PHENYLEPHRINE HCL 50 MG in NS 250 ML IV ONE; POTASSIUM Cl (KCl) 20 MEQ/50 ML BAG IV ONE; PROTAMINE SULFATE 50 MG/5 ML VIAL IVP ONE; SODIUM BICARBONATE 20 MEQ, LIDOCAINE 1% 10 ML in NORMOSOL-R 1,000 ML MISC ONE; VERAPAMIL 5 MG, NITROGLYCERIN 2.5 MG, HEPARIN 500 UNIT, SODIUM BICARBONATE 0.2 MEQ in L... MISC ONE; ceFAZolin 1 GM VIAL ONE; ceFAZolin 2 GM/SWFI 2 GM/20 ML SYR IVP ONE; methylPREDNISolone SOD SUCC 1 GM/8 ML VIAL ONE; niCARdipine/NACL 200 ML IV SCH; niCARdipine/NACL/200 ML BAG IV ONE
[2017-06-08] MEDS ORDERED: LIDOCAINE 1% 2 ML INJ ID PRN (07:36)
[2017-06-08] MEDS ORDERED: LR 1,000 ML IV ONE (07:36)
[2017-06-08] MEDS ORDERED: MIDAZOLAM 2 MG/2 ML VIAL IVP ONE (07:36)
--- NOTE | 2017-06-08 07:36 | PDANEPAE ---
ANE History of Present Illness here for cabg ANE Past Medical History - Cardiovascular History Hx Hypertension: Yes Hx Arrhythmias: No Hx Chest Pain: No Hx Coronary Artery / Peripheral Vascular Disease: Yes Cardiovascular History Comment: ABD AORTIC ANEURYSM. 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 - Endocrine History Hx Diabetes: No Endocrine History Comment: PREDIAB - Renal History Hx Renal Disorders: Yes Renal History Comment: KIDNEY STONES - Liver History Hx Hepatic Disorders: No Hepatic History Comment: WEI - Neurological & Psychiatric Hx Hx Neurological and Psychiatric Disorders: Yes Neurological / Psychiatric History Comment: PAXIL - Cancer History Hx Cancer: No - Congenital Disorder History Hx Congenital Disorders: No - GI History Hx Gastrointestinal Disorders: No - Other Health History Other Health History: OCCAS ECZEMA R ANKLE - Chronic Pain History Chronic Pain: No (back) - Surgical History Prior Surgeries: CARDIAC CATHETER X6 W/5 STENTS. APPENDECTOMY. CHOLECYSTECTOMY. HERNIA REPAIR. CERVICAL SPINE X3. TONSILLECTOMY ANE Review of Systems Review of systems is: negative Review of Systems: - Exercise capacity Exercise capacity: <4 METS METS (RN): 3 METS ANE Patient History - Allergies Allergies/Adverse Reactions: Tkehoel-Bgw-Vzy Reductase Inhibitor Allergy (Severe, Verified 05/27/17 11:08) THIGH CRAMPING - Home Medications Home medications: home medication list seen and reviewed Home Medications: Abacavir Sulfate/Lamivudine [Epzicom Tablet] 1 each PO HS 04/09/14 [Last Taken 06/07/17] Cholecalciferol Vit D3 [Vitamin D3 (*)] 2,000 units PO DAILY 04/09/14 [Last Taken 06/07/17] Efavirenz [Sustiva] 600 mg PO HS 04/09/14 [Last Taken 06/07/17] PARoxetine HCL [Paxil 30mg (*)] 30 mg PO DAILY 04/09/14 [Last Taken 06/07/17] Testosterone Cyp [Depo-Testosterone 100mg/ml inj (*)] 100 mg IM Q14D 01/28/16 [ Last Taken 06/03/17] Losartan Potassium [Cozaar 25 mg (*)] 25 mg PO HS 05/06/17 [Last Taken 06/07/17] Prasugrel HCl [Effient 10mg (*)] 10 mg PO HS 05/06/17 [Last Taken 06/03/17] Herbals/Supplements -Info Only 1 ea PO DAILY 05/24/17 [Last Taken 06/07/17] Ibuprofen [Motrin (*)] 400 mg PO DAILY PRN 05/27/17 [Last Taken 05/18/17] Timolol [Betimol] 1 drop OP DAILY 05/27/17 [Last Taken 05/25/17] - NPO status NPO Status: no food or drink >8 hours - Smoking Hx Smoking Status: Heavy smoker - Family Anes Hx Family Hx Anesthesia Complications: NEG ANE Labs/Vital Signs - Vital Signs Height: 177.8 cm Weight: 83.915 kg ANE Physical Exam - Airway Neck exam: FROM Mallampati Score: Class 1 Mouth exam: dentures - Pulmonary Pulmonary: no respiratory distress - Cardiovascular Cardiovascular: regular rate and rhythym - ASA Status ASA Status: IV ANE Anesthesia Plan Anesthesia Plan: general endotracheal anesthesia Lines/Monitors: central line
[2017-06-08] MEDS ORDERED: LIDOCAINE 1% 2 ML INJ ONE (07:46)
[2017-06-08] MEDS ORDERED: MINERAL OIL 10 ML VIAL ONE (08:04)
[2017-06-08] MEDS ORDERED: PAPAVERINE HCL 60 MG/2 ML SDV ONE (08:04)
[2017-06-08] MEDS ORDERED: VERAPAMIL 5 MG/2 ML VIAL ONE (08:04)
[2017-06-08] MEDS ORDERED: fentaNYL 250 MCG/5 ML INJ ONE ×2 (08:43→09:14)
[2017-06-08] MEDS ORDERED: PROPOFOL/EMULSION 500 MG/50 ML BOTTLE IV ONE (08:44)
[2017-06-08] MEDS ORDERED: KETAMINE 100 MG/10 ML SYR ONE (08:45)
[2017-06-08] MEDS ORDERED: ALBUMIN 5% 250 ML BOTTLE IV ONE (10:50)
[2017-06-08] MEDS ORDERED: MAGNESIUM SULF 2 GM/WATER 50 ML BAG IV ONE (10:50)
[2017-06-08] MEDS ORDERED: PHENYLEPHRINE HCL 100 MCG/ML SYR ONE (12:20)
[2017-06-08] MEDS ORDERED: MEPERIDINE 25 MG/ML SYR IVP PRN (12:27)
[2017-06-08] MEDS ORDERED: ACETAMINOPHEN 325 MG TAB PO PRN (12:27)
[2017-06-08] MEDS ORDERED: CEPACOL LOZENGE PO PRN (12:27)
[2017-06-08] MEDS ORDERED: BISACODYL 10 MG SUPP PR PRN (12:27)
[2017-06-08] MEDS ORDERED: D50W 25 GM/50 ML SYR IVP PRN (12:27)
[2017-06-08] MEDS ORDERED: MAGNESIUM SULF 2 GM/WATER 50 ML IV ONE (12:27)
[2017-06-08] MEDS ORDERED: ONDANSETRON DISINTEGRATING 4 MG TAB PO PRN (12:27)
[2017-06-08] MEDS ORDERED: METOCLOPRAMIDE 10 MG/2 ML VIAL IVP PRN (12:27)
[2017-06-08] MEDS ORDERED: SODIUM CL NASAL 45 ML BTL EACHNARE PRN (12:27)
[2017-06-08] MEDS ORDERED: ACETAMINOPHEN 650 MG SUPP PR PRN (12:27)
[2017-06-08] MEDS ORDERED: HYDROCODONE/APAP 5/325 TAB PO PRN (12:27)
[2017-06-08] MEDS ORDERED: MAGNESIUM HYDROXIDE 30 ML UDCUP PO PRN (12:27)
[2017-06-08] MEDS ORDERED: POTASSIUM Cl (KCl) 50 ML IV PRN (12:27)
[2017-06-08] MEDS ORDERED: PANTOPRAZOLE SODIUM 40 MG VIAL IVP ONE (12:27)
[2017-06-08] MEDS ORDERED: ONDANSETRON 4 MG/2 ML VIAL IVP PRN (12:27)
[2017-06-08] MEDS ORDERED: POLYETHYLENE GLYCOL 3350 17 GM PKT PO PRN (12:27)
[2017-06-08] MEDS ORDERED: LACTULOSE 20 GM/30 ML UDCUP PO PRN (12:27)
[2017-06-08] MEDS ORDERED: NS 1,000 ML IV SCH (12:30)
[2017-06-08] MEDS ORDERED: INSULIN REGULAR HUMAN 100 UNIT in NS 100 ML IV SCH (12:30)
[2017-06-08] MEDS ORDERED: fentaNYL 100 MCG/2 ML INJ ONE (12:58)
--- NOTE | 2017-06-08 13:09 | GOP ---
[f rep st] OPERATIVE REPORT DATE OF OPERATION: 06/08/2017 SURGEON: Barry Padgett DO ADVERTISING ASSISTANT MANAGER: DOLORES Mcdonald. ANESTHESIOLOGIST: Dhruv Rubio MD. PREOPERATIVE DIAGNOSIS: 1. 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 2. Human immunodeficiency virus positive. 3. Severe chronic obstructive pulmonary disease. POSTOPERATIVE DIAGNOSIS: 1. 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 2. Human immunodeficiency virus positive. 3. Severe chronic obstructive pulmonary disease. PROCEDURE PERFORMED: 1. Coronary artery bypass grafting x4 with left internal mammary artery to the left anterior descend ing, saphenous vein graft to the 1st obtuse marginal, sequential 2nd obtuse marginal, and saphenous v ein graft to the right coronary artery. 2. Endoscopic vein harvest by DOLORES Mcdonald. FINDINGS: Patient had failed multivessel stenting, was referred for crescendo angina. LV function w as essentially normal. DESCRIPTION OF PROCEDURE: He was brought to the operating room, intubated, monitoring lines were gigi jose. He was prepped and draped in sterile classical manner. Sternotomy was performed. Mammary was harvested as was vein from the left thigh and upper leg endoscopically by DOLORES Mcdonald, who first assisted throughout the procedure. The patient was heparinized, cannulated, bypass was begun. A car dioplegic arrest was obtained with antegrade cardioplegia, topical hypothermia and systemic cooling. Vein quality was excellent as was the mammary. The aorta was without thickening or calcification. H e had moderate left ventricular hypertrophy by gross external evaluation. We then sequentialed the 1 st OM to the 2nd OM. The 1st OM was a 1.8 mm vessel, the 2nd OM was a 2.4 mm vessel with good qualit y graft, which was brought around the right side of the heart and anastomosed to the ascending aorta with a cross-clamp on. We then grafted the main right coronary artery just prior to the takeoff of t he PDA. It was a 3 mm vessel in that site. A proximal anastomosis was completed to the ascending ao rta with a cross-clamp on. Rewarming was begun while the mammary was grafted to a small LAD just after the takeoff of a chronica lly occluded diagonal. It measured 1.6 mm. The mammary was an excellent vessel with good flow. It was tacked to the epicardium. Cross-clamp was removed with suction on the ascending aortic vent. Sp ontaneous cardiac activity was noted to resume. Patient was easily weaned from bypass. He was noted to have significantly lower diastolic pressure than preoperatively. Transesophageal echo was placed just to confirm that there was not more significant aortic insufficiency, and it was felt to be at m ost mild to moderate. The heparin was reversed with protamine. The cannula was removed and oversewn . Two ventricular pacing wires, 1 left pleural and 1 mediastinal drain were placed. The thymic fat and pericardium were closed. Chest was closed in standard fashion. Patient was returned to ICU in s table condition. /[id number]/MODL
[2017-06-08] MEDS: fentaNYL 100 MCG/2 ML INJ IVP PRN ×4 (13:51→18:19)
[2017-06-08] MEDS: ALBUMIN 5% 250 ML IV PRN ×4 (13:51→20:07)
[2017-06-08] MEDS ORDERED: ALBUMIN 5% 250 ML IV ONE (15:00)
[2017-06-08] MEDS: ceFAZolin 2 GM/DEXTROSE 100 ML IV SCH ×2 (15:50→21:48)
[2017-06-08] MEDS ORDERED: NOREPINEPHRINE BITARTRATE 16 MG in D5W 250 ML IV SCH (17:00)
[2017-06-08] MEDS ORDERED: HYDROmorphONE/DILAUDID 6 MG/30 ML PCA IV PRN (18:49)
[2017-06-08] MEDS ORDERED: NALOXONE HCL 0.4 MG/ML INJ IVP PRN (18:49)
--- NOTE | 2017-06-08 19:56 | CPEKG ---
Heart Rate: 111 RR Interval: 541 P-R Interval: 132 QRSD Interval: 86 QT Interval: 344 QTC Interval: 468 P [place]: 74 QRS [place]: -28 T Wave [place]: 15 EKG Severity - OTHERWISE NORMAL ECG - EKG Impression: SINUS TACHYCARDIA EKG Impression: BORDERLINE LEFT AXIS DEVIATION Electronically Signed By: Demond Silva 09-Jun-2017 10:57:46
--- NOTE | 2017-06-08 19:56 | CPEKG ---
Heart Rate: 111 RR Interval: 541 P-R Interval: 132 QRSD Interval: 86 QT Interval: 344 QTC Interval: 468 P [place]: 74 QRS [place]: -28 T Wave [place]: 15 EKG Severity - OTHERWISE NORMAL ECG - EKG Impression: SINUS TACHYCARDIA EKG Impression: BORDERLINE LEFT AXIS DEVIATION Electronically Signed By: eDmond Silva 09-Jun-2017 10:57:46
--- NOTE | 2017-06-08 19:56 | CPEKG ---
Heart Rate: 111 RR Interval: 541 P-R Interval: 132 QRSD Interval: 86 QT Interval: 344 QTC Interval: 468 P [place]: 74 QRS [place]: -28 T Wave [place]: 15 EKG Severity - OTHERWISE NORMAL ECG - EKG Impression: SINUS TACHYCARDIA EKG Impression: BORDERLINE LEFT AXIS DEVIATION Electronically Signed By: Demond Silva 09-Jun-2017 10:57:46
[2017-06-08] MEDS: SENNOSIDES/DOCUSATE SODIUM TAB PO SCH (20:06)
[2017-06-08] MEDS: NICOTINE 21 MG/24 HR PATCH TD SCH (20:06)
[2017-06-08] MEDS ORDERED: KETOROLAC 30 MG/1 ML SDV IVP ONE (20:15)
[2017-06-08] MEDS: LAMIVUDINE PO SCH (21:48)
[2017-06-08] MEDS: ABACAVIR SULFATE PO SCH (21:48)
[2017-06-08] MEDS: MUPIROCIN 2% 22 GM OINT NS SCH (21:48)
[2017-06-09 04:25] LABS: PLATELET COUNT 189 10^3/uL (150-400)
[2017-06-09] MEDS: ceFAZolin 2 GM/DEXTROSE 100 ML IV SCH ×3 (05:41→21:50)
--- NOTE | 2017-06-09 06:21 | SOAPPROG ---
SOAP Progress Note Assessment/Plan: POD #1: CABGx4 (PETIT-LAD, seq SVG to OM1/OM2, SVG-RCA) Severe CAD s/p C4 - Wean Levophed off - CTs to bulb suction, FC out, AL our once BP stable - SCDs/heparin SQ for DVT prophylaxis - BB, ASA, statin when appropriate - Kelsey transfer to PCU later today Acute blood loss anemia - Stable without blood product transfusions Current tobacco abuse with COPD - COPD mgmt as per pulmonology HIV - Pre-op meds to continue this evening q Subjective: Pain well-controlled, denies SOB. Objective: Vital Signs Temp Pulse Resp BP Pulse Ox 37.9 C 107 H 11 L 118/58 L 88 L 06/09/17 06:00 06/09/17 06:00 06/09/17 06:00 06/09/17 06:00 06/09/17 06:00 Laboratory Results 06/09/17 04:07 06/09/17 04:07 06/08/17 06/09/17 06/10/17 05:59 05:59 05:59 Intake Total 2403.7 Output Total 2135 130 Balance 268.7 -130 Physical Exam - Physical Exam General Appearance: WD/WN, alert, no apparent distress EENT: No scleral icterus (R), No scleral icterus (L) Neck: normal inspection Respiratory: No respiratory distress Cardiac/Chest: tachycardia Abdomen: non-tender, soft, distended Skin: normal color, warm/dry Extremities: No pedal edema Neuro/Psych: no motor/sensory deficits, alert, normal mood/affect, oriented x 3 ICD10 Worksheet Patient Problems: Problems Problem Status Onset CAD (coronary artery disease) Acute CAD S/P percutaneous coronary angioplasty Acute Chest pain Acute HIV (human immunodeficiency virus infection) Acute Hypertension Acute
[2017-06-09] MEDS: ALBUMIN 5% 250 ML IV PRN (07:31)
[2017-06-09] MEDS: NICOTINE 21 MG/24 HR PATCH TD SCH (08:46)
[2017-06-09] MEDS ORDERED: TIMOLOL OP SCH (09:00)
[2017-06-09] MEDS: MUPIROCIN 2% 22 GM OINT NS SCH ×2 (10:51→21:51)
[2017-06-09] MEDS: TIMOLOL OP SCH (10:51)
[2017-06-09] MEDS: SENNOSIDES/DOCUSATE SODIUM TAB PO SCH ×2 (10:52→21:51)
[2017-06-09] MEDS ORDERED: HYDROCODONE/APAP 5/325 TAB PO PRN (11:36)
[2017-06-09] MEDS ORDERED: ASPIRIN 81 MG CHEWABLE TAB TUBE PRN (12:27)
--- NOTE | 2017-06-09 12:48 | ASMTCMCOM ---
CM Note CM Note Notes: Chart reviewed. Medically stable for transfer to PCU, Therapy recommending HHC at this point OT pending. Final needs TBD. CM to follow. Date Signed: 06/09/2017 12:47 PM Electronically Signed By:Fanny Prasad RN
[2017-06-09] MEDS: PANTOPRAZOLE SODIUM 40 MG TAB PO SCH (14:30)
[2017-06-09] MEDS: ASPIRIN 81 MG CHEWABLE TAB PO SCH (14:30)
[2017-06-09] MEDS: HEPARIN 5,000 UNIT/0.5 ML SYR SC SCH ×2 (14:30→21:50)
[2017-06-09] MEDS: traMADol 50 MG TAB PO PRN (16:00)
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
[2017-06-09] MEDS ORDERED: METOPROLOL TARTRATE 25 MG TAB PO ONE (17:46)
[2017-06-09] MEDS ORDERED: KETOROLAC 30 MG/1 ML SDV IVP ONE (18:36)
[2017-06-09] MEDS ORDERED: ZOLPIDEM TARTRATE 5 MG TAB PO PRN (18:37)
[2017-06-09] MEDS ORDERED: LAMIVUDINE PO SCH (21:00)
[2017-06-09] MEDS ORDERED: ABACAVIR SULFATE PO SCH (21:00)
[2017-06-09] MEDS: ABACAVIR SULFATE PO SCH (21:50)
[2017-06-09] MEDS: EFAVIRENZ 600 MG TAB PO SCH (21:50)
[2017-06-09] MEDS: OXYCODONE/APAP 5/325 TAB PO PRN (21:50)
[2017-06-09] MEDS: LAMIVUDINE PO SCH (21:50)
[2017-06-10] MEDS: OXYCODONE/APAP 5/325 TAB PO PRN ×3 (03:14→20:59)
[2017-06-10 04:59] LABS: PLATELET COUNT 198 10^3/uL (150-400)
[2017-06-10] MEDS: HEPARIN 5,000 UNIT/0.5 ML SYR SC SCH ×3 (06:21→20:58)
--- NOTE | 2017-06-10 06:25 | SOAPPROG ---
SOAP Progress Note Assessment/Plan: POD #2: CABGx4 (PETIT-LAD, seq SVG to OM1/OM2, SVG-RCA) Severe CAD s/p C4 - BB, ASA, statin for secondary prevention - SCDs/heparin SQ for DVT prophylaxis - 1 edmund drain at removal criteria - PW to be removed Acute blood loss anemia - Stable without the need for blood product transfusions Current tobacco abuse with COPD - Evaluated by pulmonology and plan is for nebulizers as needed HIV - Pre-op meds continued Dysphagia - Coughing overnight while swallowing pills. Evaluated by PSYCHOLOGY TEACHER and cleared for regular consistency with think liquids. Subjective: Denies h/o dysphagia. Thinks coughing on his pills was a fluke. Has some incisional sharp pain. Denies SOB. Objective: Vital Signs Temp Pulse Resp BP Pulse Ox 36.4 C 114 H 26 H 158/96 H 97 06/10/17 03:31 06/10/17 03:31 06/10/17 03:31 06/10/17 03:31 06/10/17 03:31 Laboratory Results 06/10/17 04:07 06/10/17 04:07 06/09/17 06/10/17 06/11/17 05:59 05:59 05:59 Intake Total 2403.7 1085 Output Total 2135 705 Balance 268.7 380 Physical Exam - Physical Exam General Appearance: WD/WN, alert, no apparent distress EENT: No scleral icterus (R), No scleral icterus (L) Neck: normal inspection Respiratory: No respiratory distress Cardiac/Chest: regular rate, rhythm Abdomen: non-tender, soft, No distended Skin: normal color, warm/dry Extremities: No pedal edema Neuro/Psych: no motor/sensory deficits, alert, normal mood/affect, oriented x 3 ICD10 Worksheet Patient Problems: Problems Problem Status Onset CAD (coronary artery disease) Acute CAD S/P percutaneous coronary angioplasty Acute Chest pain Acute HIV (human immunodeficiency virus infection) Acute Hypertension Acute
[2017-06-10] MEDS: NICOTINE 21 MG/24 HR PATCH TD SCH (08:25)
[2017-06-10] MEDS: fentaNYL 75 MCG PATCH TD SCH (08:28)
[2017-06-10] MEDS: SENNOSIDES/DOCUSATE SODIUM TAB PO SCH ×2 (08:31→21:00)
[2017-06-10] MEDS: TIMOLOL OP SCH (08:32)
[2017-06-10] MEDS: MUPIROCIN 2% 22 GM OINT NS SCH (08:32)
[2017-06-10] MEDS: ASPIRIN 81 MG CHEWABLE TAB PO SCH (09:50)
[2017-06-10] MEDS: PANTOPRAZOLE SODIUM 40 MG TAB PO SCH (09:50)
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
[2017-06-10] MEDS: METOPROLOL TARTRATE 25 MG TAB PO SCH ×2 (13:42→21:00)
[2017-06-10] MEDS: guaiFENesin 600 MG TAB.ER PO SCH ×2 (14:41→20:59)
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
--- NOTE | 2017-06-10 19:29 | PDINTPN ---
Senior Pl Sql Developer Progress Note Assessment/Plan: Assessment/plan: 71 M with multiple co-morbidities including CAD who underwent uneventful CABG. He has well-controlled HIV, and possibly COPD with an extensive smoking history , but no active MDIs. Also has mild SULAIMAN with an AHI of 11.4 in the past, but no CPAP. He had a syncopal event after swallowing pills 06/09, but recovered quickly. * Cough- he said he was having mild cough since his surgery and did not feel intervention was required. His CXR shows mild atelectasis of the LLL, but no obvious foreign body. Should his cough fail to improve or worsen, we could consider bronchoscopy to remove any FBs, though most pills should absorb without it. * SULAIMAN- this has been stable for many years without CPAP . I dont feel it is needed now. * COPD- His FEV1 is unknown, but since he has been stable without bronchodilators, he should be fine with prn duoneb alone. * CAD- s/p CABG per Dr. Padgett Subjective: Events of last PM reviewed with Remi osorio and patient. Apparently had syncopal episode following aspiration while swallowing multiple pills. Patient unaware of other events, but said he was able to expectorate remaining pills. Cough has been mild and pre-dated last evenings events. Objective: Vital Signs Temp Pulse Resp BP Pulse Ox 36.7 C 90 17 109/70 95 06/10/17 16:00 06/10/17 16:00 06/10/17 16:00 06/10/17 16:00 06/10/17 16:00 Laboratory Results 06/10/17 04:07 06/10/17 04:07 06/09/17 06/10/17 06/11/17 05:59 05:59 05:59 Intake Total 2403.7 1085 880 Output Total 2135 705 220 Balance 268.7 380 660 Physical Exam - Physical Exam General Appearance: alert, obese EENT: PERRL/EOMI Neck: supple Respiratory: lungs clear, normal breath sounds, No respiratory distress, No stridor, No wheezing Cardiac/Chest: regular rate, rhythm, No edema Abdomen: non-tender, soft, No distended Skin: normal color, warm/dry Lymphatic: no adenopathy Extremities: pedal edema Neuro/Psych: alert, normal mood/affect, oriented x 3 ICD10 Worksheet Patient Problems: Problems Problem Status Onset S/P CABG x 4 Acute CAD S/P percutaneous coronary angioplasty Acute CAD (coronary artery disease) Chronic Chest pain Chronic HIV (human immunodeficiency virus infection) Chronic Hypertension Chronic
[2017-06-10] MEDS: LAMIVUDINE PO SCH (20:58)
[2017-06-10] MEDS: ABACAVIR SULFATE PO SCH (20:58)
[2017-06-10] MEDS: EFAVIRENZ 600 MG TAB PO SCH (20:59)
[2017-06-11] MEDS: HEPARIN 5,000 UNIT/0.5 ML SYR SC SCH ×3 (06:21→22:05)
[2017-06-11 06:57] LABS: PLATELET COUNT 216 10^3/uL (150-400)
--- NOTE | 2017-06-11 07:42 | SOAPPROG ---
SOAP Progress Note Assessment/Plan: POD #3: CABGx4 (PETIT-LAD, seq SVG to OM1/OM2, SVG-RCA) Hemodynamically stable in SR 80-90's with SBP 120-150's. Severe CAD s/p CABG x 4 - On BB and ASA for secondary prevention. No statin d/t allergy/intolerance. - SCDs/heparin SQ for DVT prophylaxis. - Will d/c remaining chest drain today. Acute postop blood loss anemia - Stable H&H without the need for blood product transfusions. Renal - Function stable with normal renal lytes and adequate urine output. However patient incontinent of urine, which is slightly improving. This happened to patient when he had a worrell removed from a previous surgery. Will check PVR. Current tobacco abuse with COPD - Evaluated by pulmonology and plan is for nebulizers as needed. - Importance of smoking cessation emphasized to patient. - Continue Nicoderm patch. HIV - Pre-op meds continued Dysphagia - Coughing improved with Mucinex. Will start Tessalon pearls today. Evaluated by PSYCHOLOGIST EDUCATIONAL yesterday and was cleared for regular consistency with thin liquids. Patient does not have much of an appetite, however he did not have problems with his turkish toast yesterday and with drinking his protein drinks/shakes. Deconditioning s/p surgery - Encourage ambulation/IS. - Continue PT/OT. Disposition - PT/OT recommending SNF vs home with therapy. - Will ask SW/CM to evaluate patient for placement. 06/11/17 09:53 Subjective: Patient reports good pain control with the exception of mild right chest point tenderness. Objective: Vital Signs Temp Pulse Resp BP Pulse Ox 36.6 C 98 20 152/97 H 95 06/11/17 04:00 06/11/17 04:00 06/11/17 04:00 06/11/17 04:00 06/11/17 04:00 Laboratory Results 06/11/17 06:40 06/11/17 06:40 06/10/17 06/11/17 06/12/17 05:59 05:59 04:59 Intake Total 1085 1230 Output Total 705 415 Balance 380 815 Physical Exam - Physical Exam General Appearance: alert, no apparent distress Respiratory: lungs clear, decreased breath sounds Cardiac/Chest: regular rate, rhythm Abdomen: normal bowel sounds, non-tender, soft Skin: warm/dry Extremities: pedal edema (minimal lower extremity edema) Neuro/Psych: alert, normal mood/affect, oriented x 3 ICD10 Worksheet Patient Problems: Problems Problem Status Onset S/P CABG x 4 Acute CAD S/P percutaneous coronary angioplasty Acute CAD (coronary artery disease) Chronic Chest pain Chronic HIV (human immunodeficiency virus infection) Chronic Hypertension Chronic
[2017-06-11] MEDS: NICOTINE 21 MG/24 HR PATCH TD SCH (08:46)
[2017-06-11] MEDS: PANTOPRAZOLE SODIUM 40 MG TAB PO SCH (08:49)
[2017-06-11] MEDS: guaiFENesin 600 MG TAB.ER PO SCH ×2 (08:49→20:43)
[2017-06-11] MEDS: ASPIRIN 81 MG CHEWABLE TAB PO SCH (09:00)
[2017-06-11] MEDS: traMADol 50 MG TAB PO PRN ×2 (09:10→20:42)
[2017-06-11] MEDS: TIMOLOL OP SCH (09:11)
[2017-06-11] MEDS: BENZONATATE 100 MG CAP PO PRN (09:11)
[2017-06-11] MEDS: SENNOSIDES/DOCUSATE SODIUM TAB PO SCH ×2 (09:14→22:06)
[2017-06-11] MEDS ORDERED: METOPROLOL TARTRATE 25 MG TAB PO ONE (09:33)
[2017-06-11] MEDS: METOPROLOL TARTRATE 25 MG TAB PO SCH ×3 (10:07→20:43)
--- NOTE | 2017-06-11 13:59 | PDINTPN ---
Apprenticeship Training Representative Progress Note Assessment/Plan: Assessment/plan: 71 M with multiple co-morbidities including CAD who underwent uneventful CABG. He has well-controlled HIV, and possibly COPD with an extensive smoking history , but no active MDIs. Also has mild SULAIMAN with an AHI of 11.4 in the past, but no CPAP. He had a syncopal event after swallowing pills 06/09, but recovered quickly. * Cough- he said he was having mild cough since his surgery and did not feel intervention was required. His CXR shows mild atelectasis of the LLL, but no obvious foreign body and no change as of 06/11. Should his cough fail to improve or worsen, we could consider bronchoscopy to remove any FBs, though most pills should absorb without it. I suggested he try his nebs fpor now. * SULAIMAN- this has been stable for many years without CPAP . I dont feel it is needed now. * COPD- His FEV1 is unknown, but since he has been stable without bronchodilators, he should be fine with prn duoneb alone. See above * CAD- s/p CABG per Dr. Padgett Subjective: no events. Still with cough; unchanged Objective: Vital Signs Temp Pulse Resp BP Pulse Ox 36.7 C 92 15 109/69 96 06/11/17 12:00 06/11/17 12:00 06/11/17 12:00 06/11/17 12:00 06/11/17 12:00 Laboratory Results 06/11/17 06:40 06/11/17 06:40 06/10/17 06/11/17 06/12/17 05:59 05:59 04:59 Intake Total 1085 1230 480 Output Total 705 415 100 Balance 380 815 380 Physical Exam - Physical Exam General Appearance: WD/WN, alert, no apparent distress, obese EENT: PERRL/EOMI Neck: supple Respiratory: lungs clear, decreased breath sounds, No respiratory distress Cardiac/Chest: regular rate, rhythm, No edema Abdomen: non-tender, soft, No distended Skin: normal color, warm/dry Lymphatic: no adenopathy Extremities: No pedal edema Neuro/Psych: alert, normal mood/affect, oriented x 3 ICD10 Worksheet Patient Problems: Problems Problem Status Onset S/P CABG x 4 Acute CAD S/P percutaneous coronary angioplasty Acute CAD (coronary artery disease) Chronic Chest pain Chronic HIV (human immunodeficiency virus infection) Chronic Hypertension Chronic
[2017-06-11] MEDS: ABACAVIR SULFATE PO SCH (20:43)
[2017-06-11] MEDS: LAMIVUDINE PO SCH (20:43)
[2017-06-11] MEDS: EFAVIRENZ 600 MG TAB PO SCH (20:43)
[2017-06-12] MEDS: HEPARIN 5,000 UNIT/0.5 ML SYR SC SCH ×3 (06:24→21:24)
--- NOTE | 2017-06-12 07:42 | SOAPPROG ---
SOAP Progress Note Assessment/Plan: POD #4: CABGx4 (PETIT-LAD, seq SVG to OM1/OM2, SVG-RCA) Hemodynamically stable mostly in SR 100's with a couple episodes of sinus bradycardia and SBP 130-140's. Severe CAD s/p CABG x 4 - On BB and ASA for secondary prevention. Will increase Metoprolol to 50mg BID today. No statin d/t allergy/intolerance. No ACEi to avoid hypotension. - SCDs/heparin SQ for DVT prophylaxis. - Lasix 40mg IV x 1. - D/c central line today. Acute postop blood loss anemia - Stable H&H without the need for blood product transfusions. Pulmonary - Patient with increased wheezing today. He was on albuteral MDI at home. - Will give neb treatment today and resume albuterol MDI. Renal - Function stable with normal renal lytes and adequate urine output. However patient still incontinent of urine. Patient has hx of urinary incontinence when he had a worrell removed from a previous surgery. PVR performed yesterday showed <60cc. Current tobacco abuse with COPD - Evaluated by pulmonology and plan is for nebulizers as needed. - Importance of smoking cessation emphasized to patient. - Continue Nicoderm patch. HIV - Pre-op meds continued Dysphagia - Coughing resolved with Mucinex and Tessalon pearls. Still tolerating a regular consistency with thin liquid diet. Patient has improved appetite today. Pain - Controlled with Tramadol, however Tramadol "knocks patient out". - Per previous reports, Percocet made patient confused and disoriented. Will let patient try [place] for pain. Deconditioning s/p surgery - Encourage ambulation/IS. - Continue PT/OT. Disposition - PT/OT recommending SNF vs home with therapy. - SW/CM evaluating patient for placement. Subjective: "I'm peeing everywhere." "I guess my pain is fine but the Tramadol knocks me out." Objective: Vital Signs Temp Pulse Resp BP Pulse Ox 37.1 C 97 12 148/95 H 96 06/12/17 07:30 06/12/17 07:30 06/12/17 07:30 06/12/17 07:30 06/12/17 07:30 Laboratory Results 06/12/17 06:15 06/11/17 06:40 06/11/17 06/12/17 06/13/17 06:59 05:59 05:59 Intake Total Output Total Balance Physical Exam - Physical Exam General Appearance: WD/WN, alert, no apparent distress Respiratory: decreased breath sounds (bases), wheezing Cardiac/Chest: tachycardia, other (no murmur, sternum stable, sternotomy c/d/i) Abdomen: normal bowel sounds, non-tender, soft Skin: warm/dry Extremities: pedal edema (minimal lower extremity edema), other (left leg incision c/d/i) Neuro/Psych: alert, normal mood/affect, oriented x 3 ICD10 Worksheet Patient Problems: Problems Problem Status Onset S/P CABG x 4 Acute CAD S/P percutaneous coronary angioplasty Acute CAD (coronary artery disease) Chronic Chest pain Chronic HIV (human immunodeficiency virus infection) Chronic Hypertension Chronic
[2017-06-12] MEDS ORDERED: LEVALBUTEROL INHALER 200 PUFFS/15 GM MDI IH PRN (08:16)
[2017-06-12] MEDS: IPRATROPIUM/ALBUTEROL 3 ML DEYVIAL IH PRN (08:27)
[2017-06-12] MEDS: NICOTINE 21 MG/24 HR PATCH TD SCH (08:56)
[2017-06-12] MEDS: PANTOPRAZOLE SODIUM 40 MG TAB PO SCH (08:59)
[2017-06-12] MEDS: guaiFENesin 600 MG TAB.ER PO SCH ×2 (08:59→21:24)
[2017-06-12] MEDS: ASPIRIN 81 MG CHEWABLE TAB PO SCH (08:59)
[2017-06-12] MEDS ORDERED: METOPROLOL TARTRATE 25 MG TAB PO SCH (09:00)
[2017-06-12] MEDS ORDERED: METOPROLOL TARTRATE 50 MG TAB PO SCH ×2 (09:00→21:00)
[2017-06-12] MEDS: TIMOLOL OP SCH (09:01)
[2017-06-12] MEDS: SENNOSIDES/DOCUSATE SODIUM TAB PO SCH ×2 (09:05→21:25)
[2017-06-12] MEDS ORDERED: FUROSEMIDE 40 MG/4 ML VIAL IVP ONE (10:14)
[2017-06-12] MEDS: HYDROCODONE/APAP 5/325 TAB PO PRN (18:41)
[2017-06-12] MEDS: EFAVIRENZ 600 MG TAB PO SCH (21:24)
[2017-06-12] MEDS: ABACAVIR SULFATE PO SCH (21:25)
[2017-06-12] MEDS: LAMIVUDINE PO SCH (21:25)
--- NOTE | 2017-06-13 06:10 | SOAPPROG ---
SOAP Progress Note Assessment/Plan: POD #5: CABGx4 (PETIT-LAD, seq SVG to OM1/OM2, SVG-RCA) Severe CAD s/p C4 - BB, ASA, statin for secondary prevention - SCDs/heparin SQ for DVT prophylaxis - All tubes/wires out Acute blood loss anemia - Stable without the need for blood product transfusions Current tobacco abuse with COPD - Evaluated by pulmonology and plan is for nebulizers as needed HIV - Pre-op meds continued Dysphagia - Evaluated by TYPE CASTING MACHINE OPERATOR and cleared for regular consistency with think liquids. - Stable Disposition - SNF today Subjective: Feels great. No pain/SOB. Coughing has improved. Objective: Vital Signs Temp Pulse Resp BP Pulse Ox 36.6 C 90 18 101/68 90 L 06/12/17 22:53 06/12/17 22:53 06/12/17 22:53 06/12/17 22:53 06/12/17 22:53 Laboratory Results 06/12/17 06:15 06/11/17 06:40 06/12/17 06/13/17 06/14/17 05:59 05:59 05:59 Intake Total 1640 Output Total 325 Balance 1315 Physical Exam - Physical Exam General Appearance: WD/WN, alert, no apparent distress EENT: No scleral icterus (R), No scleral icterus (L) Neck: normal inspection Respiratory: No respiratory distress Cardiac/Chest: regular rate, rhythm Abdomen: non-tender, soft, No distended Skin: normal color, warm/dry Extremities: pedal edema (Left 1+, right none ) Neuro/Psych: no motor/sensory deficits, alert, normal mood/affect, oriented x 3 ICD10 Worksheet Patient Problems: Problems Problem Status Onset S/P CABG x 4 Acute CAD S/P percutaneous coronary angioplasty Acute CAD (coronary artery disease) Chronic Chest pain Chronic HIV (human immunodeficiency virus infection) Chronic Hypertension Chronic
[2017-06-13] MEDS: HEPARIN 5,000 UNIT/0.5 ML SYR SC SCH ×3 (06:24→20:45)
[2017-06-13] MEDS: ASPIRIN 81 MG CHEWABLE TAB PO SCH (07:55)
[2017-06-13] MEDS: METOPROLOL TARTRATE 25 MG TAB PO SCH ×2 (07:56→20:43)
[2017-06-13] MEDS: guaiFENesin 600 MG TAB.ER PO SCH ×2 (07:56→20:42)
[2017-06-13] MEDS: PANTOPRAZOLE SODIUM 40 MG TAB PO SCH (07:56)
[2017-06-13] MEDS: NICOTINE 21 MG/24 HR PATCH TD SCH (07:56)
--- NOTE | 2017-06-13 08:12 | PDIAF ---
- Diagnosis Diagnosis: s/p CABG Code Status: Full Code - Medication Management Discharge Medications: Medications to Continue on Transfer Abacavir Sulfate/Lamivudine [Epzicom Tablet] 1 each PO HS 04/09/14 [Last Taken 06/07/17] Cholecalciferol Vit D3 [Vitamin D3 (*)] 2,000 units PO DAILY 04/09/14 [Last Taken 06/07/17] Efavirenz [Sustiva] 600 mg PO HS 04/09/14 [Last Taken 06/07/17] PARoxetine HCL [Paxil 30mg (*)] 30 mg PO DAILY 04/09/14 [Last Taken 06/07/17] traZODone [traZODONE 50MG (*)] 50 mg PO HS #30 tab 01/16/15 [Last Taken 06/07/17 ] Testosterone Cyp [Depo-Testosterone 100mg/ml inj (*)] 100 mg IM Q14D 01/28/16 [ Last Taken 06/03/17] Herbals/Supplements -Info Only 1 ea PO DAILY 05/24/17 [Last Taken 06/07/17] Timolol [Betimol] 1 drop OP DAILY 05/27/17 [Last Taken 05/25/17] Acetaminophen [Tylenol 325mg (*)] 325 - 650 mg PO Q4HRS PRN tab 06/13/17 [Last Taken Unknown] Aspirin [Aspirin 81mg (*)] 81 mg PO DAILY tab.chew 06/13/17 [Last Taken Unknown ] Benzonatate [Tessalon Pearles] 100 mg PO TID PRN cap 06/13/17 [Last Taken Unknown] Hydrocodone/APAP 5/325 [[place] 5/325 (*)] 1 - 2 tab PO Q4HRS PRN tab 06/13/17 [ Last Taken Unknown] Nicotine [Nicoderm Cq 21 mg (*)] 21 mg TD DAILY patch 06/13/17 [Last Taken Unknown] traMADol [Ultram 50 mg (*)] 50 - 100 mg PO Q4HRS PRN tab 06/13/17 [Last Taken Unknown] Discharge Medications: Refer to the Discharge Home Medication list for PRN reason. PICC Care - Routine: N/A - Orders Services needed: Registered Nurse, Certified Electronic System Engineer, Master Pharmacy Delivery Driver , Physical Therapy, Occupational Therapy Diet Recommendation: cardiac -low fat low salt, fluid restriction (use comment for amount) (2 liters daily) Diet Texture: Regular Texture Diet, Thin Liquids, Meds Whole w/Liquids Weigh Patient: daily [place]: No Wound Care Instructions: Cleanse wounds daily with soap and water. Avoid water immersion (pool, hot tub, bath) until scabs off. Ok to leave all wounds open to air. Avoid creams or ointments until scabs off. Activity/Weight Bearing Restrictions: Sternal precautions x 4 weeks. Avoid lifting > 10lbs with an outstretched arm. Avoid push/pull activities. No driving until cleared by surgery. Elevate low legs at rest. Avoid prolonged standing or dangling. Additional: Log daily vital signs: weight, heart rate, blood pressure, +/- pulse oximetry. Call [employer] for overnight weight gain > 2lbs, weekly gain > 5lbs or worsening leg swelling. Call [employer] for resting heart rate > 120 or < 60 OR for systolic blood pressure consistently < 90 or > 160. - Labs/Radiology Imaging Orders: To be taken at [facility] prior to surgical appointment. - Follow Up Care Current Providers and Referrals: Barry Padgett DO [Doctor of Osteopathy] - 06/21/17 9:30 am Kiarra Dougherty NP [Primary Care Provider] -
--- NOTE | 2017-06-13 08:12 | PDIAF ---
- Diagnosis Diagnosis: s/p CABG Code Status: Full Code - Medication Management Discharge Medications: Medications to Continue on Transfer Abacavir Sulfate/Lamivudine [Epzicom Tablet] 1 each PO HS 04/09/14 [Last Taken 06/07/17] Cholecalciferol Vit D3 [Vitamin D3 (*)] 2,000 units PO DAILY 04/09/14 [Last Taken 06/07/17] Efavirenz [Sustiva] 600 mg PO HS 04/09/14 [Last Taken 06/07/17] PARoxetine HCL [Paxil 30mg (*)] 30 mg PO DAILY 04/09/14 [Last Taken 06/07/17] traZODone [traZODONE 50MG (*)] 50 mg PO HS #30 tab 01/16/15 [Last Taken 06/07/17 ] Testosterone Cyp [Depo-Testosterone 100mg/ml inj (*)] 100 mg IM Q14D 01/28/16 [ Last Taken 06/03/17] Herbals/Supplements -Info Only 1 ea PO DAILY 05/24/17 [Last Taken 06/07/17] Timolol [Betimol] 1 drop OP DAILY 05/27/17 [Last Taken 05/25/17] Acetaminophen [Tylenol 325mg (*)] 325 - 650 mg PO Q4HRS PRN tab 06/13/17 [Last Taken Unknown] Aspirin [Aspirin 81mg (*)] 81 mg PO DAILY tab.chew 06/13/17 [Last Taken Unknown ] Benzonatate [Tessalon Pearles] 100 mg PO TID PRN cap 06/13/17 [Last Taken Unknown] Hydrocodone/APAP 5/325 [[place] 5/325 (*)] 1 - 2 tab PO Q4HRS PRN tab 06/13/17 [ Last Taken Unknown] Nicotine [Nicoderm Cq 21 mg (*)] 21 mg TD DAILY patch 06/13/17 [Last Taken Unknown] traMADol [Ultram 50 mg (*)] 50 - 100 mg PO Q4HRS PRN tab 06/13/17 [Last Taken Unknown] Discharge Medications: Refer to the Discharge Home Medication list for PRN reason. PICC Care - Routine: N/A - Orders Services needed: Registered Nurse, Certified Grades 1 Through 6 Teacher, Master Automotive Electrician , Physical Therapy, Occupational Therapy Diet Recommendation: cardiac -low fat low salt, fluid restriction (use comment for amount) (2 liters daily) Diet Texture: Regular Texture Diet, Thin Liquids, Meds Whole w/Liquids Weigh Patient: daily [place]: No Wound Care Instructions: Cleanse wounds daily with soap and water. Avoid water immersion (pool, hot tub, bath) until scabs off. Ok to leave all wounds open to air. Avoid creams or ointments until scabs off. Activity/Weight Bearing Restrictions: Sternal precautions x 4 weeks. Avoid lifting > 10lbs with an outstretched arm. Avoid push/pull activities. No driving until cleared by surgery. Elevate low legs at rest. Avoid prolonged standing or dangling. Additional: Log daily vital signs: weight, heart rate, blood pressure, +/- pulse oximetry. Call [employer] for overnight weight gain > 2lbs, weekly gain > 5lbs or worsening leg swelling. Call [employer] for resting heart rate > 120 or < 60 OR for systolic blood pressure consistently < 90 or > 160. - Labs/Radiology Imaging Orders: To be taken at [facility] prior to surgical appointment. - Follow Up Care Current Providers and Referrals: Barry Padgett DO [Doctor of Osteopathy] - 06/21/17 9:30 am Kiarra Dougherty NP [Primary Care Provider] -
--- NOTE | 2017-06-13 08:12 | PDIAF ---
- Diagnosis Diagnosis: s/p CABG Code Status: Full Code - Medication Management Discharge Medications: Medications to Continue on Transfer Abacavir Sulfate/Lamivudine [Epzicom Tablet] 1 each PO HS 04/09/14 [Last Taken 06/07/17] Cholecalciferol Vit D3 [Vitamin D3 (*)] 2,000 units PO DAILY 04/09/14 [Last Taken 06/07/17] Efavirenz [Sustiva] 600 mg PO HS 04/09/14 [Last Taken 06/07/17] PARoxetine HCL [Paxil 30mg (*)] 30 mg PO DAILY 04/09/14 [Last Taken 06/07/17] traZODone [traZODONE 50MG (*)] 50 mg PO HS #30 tab 01/16/15 [Last Taken 06/07/17 ] Testosterone Cyp [Depo-Testosterone 100mg/ml inj (*)] 100 mg IM Q14D 01/28/16 [ Last Taken 06/03/17] Herbals/Supplements -Info Only 1 ea PO DAILY 05/24/17 [Last Taken 06/07/17] Timolol [Betimol] 1 drop OP DAILY 05/27/17 [Last Taken 05/25/17] Acetaminophen [Tylenol 325mg (*)] 325 - 650 mg PO Q4HRS PRN tab 06/13/17 [Last Taken Unknown] Aspirin [Aspirin 81mg (*)] 81 mg PO DAILY tab.chew 06/13/17 [Last Taken Unknown ] Benzonatate [Tessalon Pearles] 100 mg PO TID PRN cap 06/13/17 [Last Taken Unknown] Hydrocodone/APAP 5/325 [[place] 5/325 (*)] 1 - 2 tab PO Q4HRS PRN tab 06/13/17 [ Last Taken Unknown] Nicotine [Nicoderm Cq 21 mg (*)] 21 mg TD DAILY patch 06/13/17 [Last Taken Unknown] traMADol [Ultram 50 mg (*)] 50 - 100 mg PO Q4HRS PRN tab 06/13/17 [Last Taken Unknown] Discharge Medications: Refer to the Discharge Home Medication list for PRN reason. PICC Care - Routine: N/A - Orders Services needed: Registered Nurse, Certified Braid Cutter, Master Tube Splicer , Physical Therapy, Occupational Therapy Diet Recommendation: cardiac -low fat low salt, fluid restriction (use comment for amount) (2 liters daily) Diet Texture: Regular Texture Diet, Thin Liquids, Meds Whole w/Liquids Weigh Patient: daily [place]: No Wound Care Instructions: Cleanse wounds daily with soap and water. Avoid water immersion (pool, hot tub, bath) until scabs off. Ok to leave all wounds open to air. Avoid creams or ointments until scabs off. Activity/Weight Bearing Restrictions: Sternal precautions x 4 weeks. Avoid lifting > 10lbs with an outstretched arm. Avoid push/pull activities. No driving until cleared by surgery. Elevate low legs at rest. Avoid prolonged standing or dangling. Additional: Log daily vital signs: weight, heart rate, blood pressure, +/- pulse oximetry. Call [employer] for overnight weight gain > 2lbs, weekly gain > 5lbs or worsening leg swelling. Call [employer] for resting heart rate > 120 or < 60 OR for systolic blood pressure consistently < 90 or > 160. - Labs/Radiology Imaging Orders: To be taken at [facility] prior to surgical appointment. - Follow Up Care Current Providers and Referrals: Barry Padgett DO [Doctor of Osteopathy] - 06/21/17 9:30 am Kiarra Dougherty NP [Primary Care Provider] -
[2017-06-13] MEDS: fentaNYL 75 MCG PATCH TD SCH (09:00)
[2017-06-13] MEDS: SENNOSIDES/DOCUSATE SODIUM TAB PO SCH ×2 (10:28→20:43)
[2017-06-13] MEDS: TIMOLOL OP SCH (10:30)
[2017-06-13] MEDS: HYDROCODONE/APAP 5/325 TAB PO PRN ×3 (13:44→20:41)
--- NOTE | 2017-06-13 13:49 | CPEKG ---
Heart Rate: 89 RR Interval: 674 P-R Interval: 128 QRSD Interval: 94 QT Interval: 376 QTC Interval: 458 P [place]: 76 QRS [place]: 4 EKG Severity - OTHERWISE NORMAL ECG - EKG Impression: SINUS RHYTHM EKG Impression: LOW VOLTAGE IN FRONTAL LEADS Electronically Signed By: Gregorio Perez 14-Jun-2017 10:38:58
--- NOTE | 2017-06-13 13:49 | CPEKG ---
Heart Rate: 89 RR Interval: 674 P-R Interval: 128 QRSD Interval: 94 QT Interval: 376 QTC Interval: 458 P [place]: 76 QRS [place]: 4 EKG Severity - OTHERWISE NORMAL ECG - EKG Impression: SINUS RHYTHM EKG Impression: LOW VOLTAGE IN FRONTAL LEADS Electronically Signed By: Gregorio Perez 14-Jun-2017 10:38:58
--- NOTE | 2017-06-13 14:50 | ASMTCMCOM ---
CM Note CM Note Notes: Met w/pt today to discuss dc poc. He is in agreement w/plan for SNF [facility]. We talked about facilities that referrals had been sent to. Pt would like to go to [facility]. Spoke w/Abril at [facility] who said that they would be able to accept once they have insurance auth. She asked about 2 meds if pt would be able to bring own if they cannot supply: Timolol eye drops and Epzicom (HIV medication); pt said that he could bring these and they are here at hospital with him. Discussed w/RN and DOLORES Khalil. Pt may be ready for dc tomorrow. Date Signed: 06/13/2017 02:50 PM Electronically Signed By:Bree Marc RN
--- NOTE | 2017-06-13 14:50 | ASMTCMCOM ---
CM Note CM Note Notes: Met w/pt today to discuss dc poc. He is in agreement w/plan for SNF at [facility]. We talked about facilities that referrals had been sent to. Pt would like to go to [facility]. Spoke w/Abril at [facility] who said that they would be able to accept once they have insurance auth. She asked about 2 meds if pt would be able to bring own if they cannot supply: Timolol eye drops and Epzicom (HIV medication); pt said that he could bring these and they are here at hospital with him. Discussed w/RN and DOLORES Khalil. Pt may be ready for dc tomorrow. Date Signed: 06/13/2017 02:50 PM Electronically Signed By:Bree Marc RN
--- NOTE | 2017-06-13 14:50 | ASMTCMCOM ---
CM Note CM Note Notes: Met w/pt today to discuss dc poc. He is in agreement w/plan for SNF [place]. We talked about facilities that referrals had been sent to. Pt would like to go to [facility]. Spoke w/Abril at [facility] who said that they would be able to accept once they have insurance auth. She asked about 2 meds if pt would be able to bring own if they cannot supply: Timolol eye drops and Epzicom (HIV medication); pt said that he could bring these and they are here at hospital with him. Discussed w/RN and DOLORES Khalil. Pt may be ready for dc tomorrow. Date Signed: 06/13/2017 02:50 PM Electronically Signed By:Bree Marc RN
[2017-06-13] MEDS: IPRATROPIUM/ALBUTEROL 3 ML DEYVIAL IH PRN ×2 (14:54→21:55)
--- NOTE | 2017-06-13 16:57 | PDINTPN ---
Enterprise Resource Planning Consultant Progress Note Assessment/Plan: Assessment: 71 M with multiple co-morbidities including CAD who underwent uneventful CABG. He has well-controlled HIV, and possibly COPD with an extensive smoking history , but no active MDIs. Also has mild SULAIMAN with an AHI of 11.4 in the past, but no CPAP. He had a syncopal event after swallowing pills 06/09, but recovered quickly. * Cough- he said he was having mild cough since his surgery and did not feel intervention was required. His CXR shows mild atelectasis of the LLL, but no obvious foreign body and no change as of 06/11. Should his cough fail to improve or worsen, we could consider bronchoscopy to remove any FBs, though most pills should absorb without it. I suggested he try his nebs fpor now. * SULAIMAN- this has been stable for many years without CPAP . I dont feel it is needed now. * COPD- His FEV1 is unknown, but since he has been stable without bronchodilators, he should be fine with prn duoneb alone. See above * CAD- s/p CABG per Dr. Padgett Plan: 06/13/17 16:56 Objective: Vital Signs Temp Pulse Resp BP Pulse Ox 36.3 C 96 18 118/73 94 06/13/17 13:40 06/13/17 14:58 06/13/17 14:58 06/13/17 13:40 06/13/17 14:58 Laboratory Results 06/12/17 06:15 06/11/17 06:40 06/12/17 06/13/17 06/14/17 05:59 05:59 05:59 Intake Total 1640 360 Output Total 1525 Balance 115 360 ICD10 Worksheet Patient Problems: Problems Problem Status Onset S/P CABG x 4 Acute CAD S/P percutaneous coronary angioplasty Acute CAD (coronary artery disease) Chronic Chest pain Chronic HIV (human immunodeficiency virus infection) Chronic Hypertension Chronic
--- NOTE | 2017-06-13 17:17 | PDINTPN ---
Explosives Truck Driver Progress Note Assessment/Plan: Assessment: 71 M with multiple co-morbidities including CAD who underwent uneventful CABG. He has well-controlled HIV, and possibly COPD with an extensive smoking history , but no active MDIs. Also has mild SULAIMAN with an AHI of 11.4 in the past, but no CPAP. He had a syncopal event after swallowing pills 06/09, but recovered quickly. * Cough- he said he was having mild cough since his surgery and did not feel intervention was required. His CXR shows mild atelectasis of the LLL, but no obvious foreign body and no change as of 06/11. Cough had improved, now bit worse today, but has improved again with addition of Tessalon and Guaifenesin. Nonproductive, but he feels that there is some rattling in his chest. Causing musculoskeletal chest pain. * SULAIMAN- this has been stable for many years without CPAP. May benefit from evaluation, is untreated SULAIMAN has been associated with an increased rate of cardiovascular events that are reduced with effective treatment. * COPD- His FEV1 is unknown, but since he has been stable without bronchodilators. Will add Advair as above * CAD- s/p CABG per Dr. Padgett Plan: Resume frequent incentive spirometry. Add Mucomyst and Advair. Okay for discharge tomorrow. Follow up with pulmonology in 6-8 weeks to consider pulmonary function tests as well as reassess for treatment of sleep apnea. 06/13/17 16:56 06/13/17 17:14 Subjective: C/O increased cough, not productive but he can feel rattling. Causing chest wall pain Objective: Vital Signs Temp Pulse Resp BP Pulse Ox 37.2 C 81 14 126/77 H 95 06/13/17 16:00 06/13/17 16:00 06/13/17 16:00 06/13/17 16:00 06/13/17 16:00 Laboratory Results 06/12/17 06:15 06/11/17 06:40 06/12/17 06/13/17 06/14/17 05:59 05:59 05:59 Intake Total 1640 360 Output Total 1525 Balance 115 360 CXR: Improved, not resolved, left lower lobe atelectasis/infiltrate. Images reviewed Physical Exam - Physical Exam General Appearance: alert, no apparent distress EENT: normal ENT inspection Neck: normal inspection Respiratory: lungs clear, normal breath sounds, No respiratory distress Cardiac/Chest: regular rate, rhythm, No edema Abdomen: normal bowel sounds, non-tender, soft Skin: normal color, warm/dry Extremities: non-tender Neuro/Psych: alert, normal mood/affect, oriented x 3 ICD10 Worksheet Patient Problems: Problems Problem Status Onset S/P CABG x 4 Acute CAD S/P percutaneous coronary angioplasty Acute CAD (coronary artery disease) Chronic Chest pain Chronic HIV (human immunodeficiency virus infection) Chronic Hypertension Chronic
[2017-06-13] MEDS: BENZONATATE 100 MG CAP PO PRN (20:42)
[2017-06-13] MEDS: EFAVIRENZ 600 MG TAB PO SCH (20:44)
[2017-06-13] MEDS: LAMIVUDINE PO SCH (20:47)
[2017-06-13] MEDS: ABACAVIR SULFATE PO SCH (20:47)
[2017-06-13] MEDS: FLUTICASONE/SALMETER 250/50MCG DISKUS IH SCH (21:56)
[2017-06-13] MEDS: ACETYLCYSTEINE 10% 30 ML VIAL IH SCH (21:57)
[2017-06-14] MEDS: ACETYLCYSTEINE 10% 30 ML VIAL IH SCH ×4 (05:04→17:01)
[2017-06-14] MEDS: IPRATROPIUM/ALBUTEROL 3 ML DEYVIAL IH PRN (05:04)
[2017-06-14] MEDS: HEPARIN 5,000 UNIT/0.5 ML SYR SC SCH ×3 (05:18→20:12)
[2017-06-14] MEDS: HYDROCODONE/APAP 5/325 TAB PO PRN ×3 (05:18→20:10)
[2017-06-14] MEDS: BENZONATATE 100 MG CAP PO PRN ×3 (05:32→20:12)
--- NOTE | 2017-06-14 06:27 | SOAPPROG ---
SOAP Progress Note Assessment/Plan: POD #6: CABGx4 (PETIT-LAD, seq SVG to OM1/OM2, SVG-RCA) Severe CAD s/p C4 - BB, ASA, statin for secondary prevention - SCDs/heparin SQ for DVT prophylaxis - All tubes/wires out Acute blood loss anemia - Stable without the need for blood product transfusions Current tobacco abuse with COPD and persistent cough - Reevaluated by pulmonology and Advair added - Plan for 6-8 outpatient follow-up HIV - Pre-op meds continued Dysphagia - Evaluated by WINDOW CLEANER and cleared for regular consistency with think liquids. - Stable Disposition - SNF today Subjective: Coughing less. Still experiencing sternal pain when coughing. Objective: Vital Signs Temp Pulse Resp BP Pulse Ox 36.8 C 97 10 L 126/93 H 93 06/14/17 04:00 06/14/17 05:55 06/14/17 05:04 06/14/17 04:00 06/14/17 05:55 Laboratory Results 06/12/17 06:15 06/11/17 06:40 06/13/17 06/14/17 06/15/17 05:59 05:59 05:59 Intake Total 1640 980 Output Total 1525 602 Balance 115 378 Physical Exam - Physical Exam General Appearance: WD/WN, alert, no apparent distress EENT: No scleral icterus (R), No scleral icterus (L) Neck: normal inspection Respiratory: No respiratory distress Cardiac/Chest: regular rate, rhythm Abdomen: non-tender, soft, No distended Skin: normal color, warm/dry Extremities: No pedal edema Neuro/Psych: no motor/sensory deficits, alert, normal mood/affect, oriented x 3 ICD10 Worksheet Patient Problems: Problems Problem Status Onset S/P CABG x 4 Acute CAD S/P percutaneous coronary angioplasty Acute CAD (coronary artery disease) Chronic Chest pain Chronic HIV (human immunodeficiency virus infection) Chronic Hypertension Chronic
--- NOTE | 2017-06-14 07:03 | PDIAF ---
- Diagnosis Diagnosis: s/p CABG Code Status: Full Code - Medication Management Discharge Medications: Medications to Continue on Transfer Abacavir Sulfate/Lamivudine [Epzicom Tablet] 1 each PO HS 04/09/14 [Last Taken 06/07/17] Cholecalciferol Vit D3 [Vitamin D3 (*)] 2,000 units PO DAILY 04/09/14 [Last Taken 06/07/17] Efavirenz [Sustiva] 600 mg PO HS 04/09/14 [Last Taken 06/07/17] PARoxetine HCL [Paxil 30mg (*)] 30 mg PO DAILY 04/09/14 [Last Taken 06/07/17] traZODone [traZODONE 50MG (*)] 50 mg PO HS #30 tab 01/16/15 [Last Taken 06/07/17 ] Testosterone Cyp [Depo-Testosterone 100mg/ml inj (*)] 100 mg IM Q14D 01/28/16 [ Last Taken 06/03/17] Herbals/Supplements -Info Only 1 ea PO DAILY 05/24/17 [Last Taken 06/07/17] Timolol [Betimol] 1 drop OP DAILY 05/27/17 [Last Taken 05/25/17] Acetaminophen [Tylenol 325mg (*)] 325 - 650 mg PO Q4HRS PRN tab 06/13/17 [Last Taken Unknown] Aspirin [Aspirin 81mg (*)] 81 mg PO DAILY tab.chew 06/13/17 [Last Taken Unknown ] Benzonatate [Tessalon Pearles] 100 mg PO TID PRN cap 06/13/17 [Last Taken Unknown] Hydrocodone/APAP 5/325 [[place] 5/325 (*)] 1 - 2 tab PO Q4HRS PRN tab 06/13/17 [ Last Taken Unknown] Nicotine [Nicoderm Cq 21 mg (*)] 21 mg TD DAILY patch 06/13/17 [Last Taken Unknown] traMADol [Ultram 50 mg (*)] 50 - 100 mg PO Q4HRS PRN tab 06/13/17 [Last Taken Unknown] Fluticasone/Salmeter 250/50Mcg [Advair 250/50 (*)] 1 puffs IH BID disk [Last Taken Unknown] Metoprolol Tartrate [Lopressor 25 mg (*)] 25 mg PO BID tab 06/14/17 [Last Taken Unknown] guaiFENesin [Mucinex 600 MG (*)] 600 mg PO BID tab.er 06/14/17 [Last Taken Unknown] Discharge Medications: Refer to the Discharge Home Medication list for PRN reason. PICC Care - Routine: N/A - Orders Services needed: Registered Nurse, Certified Auditor Tax, Master Computer Numerical Control Machinist , Physical Therapy, Occupational Therapy Diet Recommendation: cardiac -low fat low salt, fluid restriction (use comment for amount) Diet Texture: Regular Texture Diet, Thin Liquids, Meds Whole w/Liquids Weigh Patient: daily Escobar: No Wound Care Instructions: Cleanse wounds daily with soap and water. Avoid water immersion (pool, hot tub, bath) until scabs off. Ok to leave all wounds open to air. Avoid creams or ointments until scabs off. Activity/Weight Bearing Restrictions: Sternal precautions x 4 weeks. Avoid lifting > 10lbs with an outstretched arm. Avoid push/pull activities. No driving until cleared by surgery. Elevate low legs at rest. Avoid prolonged standing or dangling. Additional: Log daily vital signs: weight, heart rate, blood pressure, +/- pulse oximetry. Call [employer] for overnight weight gain > 2lbs, weekly gain > 5lbs or worsening leg swelling. Call [facility] for resting heart rate > 120 or < 60 OR for systolic blood pressure consistently < 90 or > 160. - Labs/Radiology Imaging Orders: To be taken at [facility] prior to surgical appointment. - Follow Up Care Current Providers and Referrals: Barry Padgett DO [Doctor of Osteopathy] - 06/21/17 9:30 am Kiarra Dougherty NP [Primary Care Provider] - Silverio Dang MD [Medical Doctor] - follow up as scheduled (6-8 weeks for COPD and sleep apnea management )
--- NOTE | 2017-06-14 07:03 | PDIAF ---
- Diagnosis Diagnosis: s/p CABG Code Status: Full Code - Medication Management Discharge Medications: Medications to Continue on Transfer Abacavir Sulfate/Lamivudine [Epzicom Tablet] 1 each PO HS 04/09/14 [Last Taken 06/07/17] Cholecalciferol Vit D3 [Vitamin D3 (*)] 2,000 units PO DAILY 04/09/14 [Last Taken 06/07/17] Efavirenz [Sustiva] 600 mg PO HS 04/09/14 [Last Taken 06/07/17] PARoxetine HCL [Paxil 30mg (*)] 30 mg PO DAILY 04/09/14 [Last Taken 06/07/17] traZODone [traZODONE 50MG (*)] 50 mg PO HS #30 tab 01/16/15 [Last Taken 06/07/17 ] Testosterone Cyp [Depo-Testosterone 100mg/ml inj (*)] 100 mg IM Q14D 01/28/16 [ Last Taken 06/03/17] Herbals/Supplements -Info Only 1 ea PO DAILY 05/24/17 [Last Taken 06/07/17] Timolol [Betimol] 1 drop OP DAILY 05/27/17 [Last Taken 05/25/17] Acetaminophen [Tylenol 325mg (*)] 325 - 650 mg PO Q4HRS PRN tab 06/13/17 [Last Taken Unknown] Aspirin [Aspirin 81mg (*)] 81 mg PO DAILY tab.chew 06/13/17 [Last Taken Unknown ] Benzonatate [Tessalon Pearles] 100 mg PO TID PRN cap 06/13/17 [Last Taken Unknown] Hydrocodone/APAP 5/325 [[place] 5/325 (*)] 1 - 2 tab PO Q4HRS PRN tab 06/13/17 [ Last Taken Unknown] Nicotine [Nicoderm Cq 21 mg (*)] 21 mg TD DAILY patch 06/13/17 [Last Taken Unknown] traMADol [Ultram 50 mg (*)] 50 - 100 mg PO Q4HRS PRN tab 06/13/17 [Last Taken Unknown] Fluticasone/Salmeter 250/50Mcg [Advair 250/50 (*)] 1 puffs IH BID disk [Last Taken Unknown] Metoprolol Tartrate [Lopressor 25 mg (*)] 25 mg PO BID tab 06/14/17 [Last Taken Unknown] guaiFENesin [Mucinex 600 MG (*)] 600 mg PO BID tab.er 06/14/17 [Last Taken Unknown] Discharge Medications: Refer to the Discharge Home Medication list for PRN reason. PICC Care - Routine: N/A - Orders Services needed: Registered Nurse, Certified Seam Steamer, Master Cotton Weigher Operator , Physical Therapy, Occupational Therapy Diet Recommendation: cardiac -low fat low salt, fluid restriction (use comment for amount) Diet Texture: Regular Texture Diet, Thin Liquids, Meds Whole w/Liquids Weigh Patient: daily Escobar: No Wound Care Instructions: Cleanse wounds daily with soap and water. Avoid water immersion (pool, hot tub, bath) until scabs off. Ok to leave all wounds open to air. Avoid creams or ointments until scabs off. Activity/Weight Bearing Restrictions: Sternal precautions x 4 weeks. Avoid lifting > 10lbs with an outstretched arm. Avoid push/pull activities. No driving until cleared by surgery. Elevate low legs at rest. Avoid prolonged standing or dangling. Additional: Log daily vital signs: weight, heart rate, blood pressure, +/- pulse oximetry. Call [employer] for overnight weight gain > 2lbs, weekly gain > 5lbs or worsening leg swelling. Call [facility] for resting heart rate > 120 or < 60 OR for systolic blood pressure consistently < 90 or > 160. - Labs/Radiology Imaging Orders: To be taken at [facility] prior to surgical appointment. - Follow Up Care Current Providers and Referrals: Barry Padgett DO [Doctor of Osteopathy] - 06/21/17 9:30 am Kiarra Dougherty NP [Primary Care Provider] - Silverio Dang MD [Medical Doctor] - follow up as scheduled (6-8 weeks for COPD and sleep apnea management )
--- NOTE | 2017-06-14 08:23 | PDDCSUM ---
Discharge Summary Discharge Summary: ADMISSION DATE: 06/08/17 DISCHARGE DATE: 06/14/17 ADMISSION DX: 1. Severe CAD 2. COPD with active tobacco abuse 3. HIV DISCHARGE DX: 1. Severe CAD 2. COPD with active tobacco abuse 3. HIV 4. Acute blood loss anemia PROCEDURES 06/08/17, Barry Padgett: 1. CABGx4 (PETIT-LAD, seq SVG-OM1/OM2, SVG-RCA) HOSPITAL COURSE BY PROBLEM LIST 1. Severe CAD - s/p CABGx4 with eta-familia and aspirin prescribed for secondary prevention. Statin avoided secondary to allergy. 2. COPD with active tobacco abuse - nicotine patch and Advair prescribed with plan for outpatient pulmonology evaluation. Pt motivated to quit smoking. 3. HIV - pre-op medications restarted. 4. Acute blood loss anemia - stable without the need for transfusions. CONDITION Good DISPOSITION [place] ACTIVITY Pt was instructed on sternal precautions, activity limitations, and which problems to call [facility] with. Please see Discharge Plan and Interagency Discharge Form in chart for specifics. DISCHARGE MEDICATIONS 1. Abacavir Sulfate/Lamivudine [Epzicom Tablet] 1 each PO HS 2. Cholecalciferol Vit D3 [Vitamin D3 (*)] 2,000 units PO DAILY 3. Efavirenz [Sustiva] 600 mg PO HS 4. PARoxetine HCL [Paxil 30mg (*)] 30 mg PO DAILY 5. traZODone [traZODONE 50MG (*)] 50 mg PO HS 6. Testosterone Cyp [Depo-Testosterone 100mg/ml inj (*)] 100 mg IM Q14D 7. Herbals/Supplements -Info Only 1 ea PO DAILY 8. Timolol [Betimol] 1 drop OP DAILY 9. Acetaminophen [Tylenol 325mg (*)] 325 - 650 mg PO Q4HRS PRN 10. Aspirin [Aspirin 81mg (*)] 81 mg PO DAILY 11. Benzonatate [Tessalon Pearles] 100 mg PO TID PRN 12. Hydrocodone/APAP 5/325 [[place] 5/325 (*)] 1 - 2 tab PO Q4HRS PRN 13. Nicotine [Nicoderm Cq 21 mg (*)] 21 mg TD DAILY patch 14. traMADol [Ultram 50 mg (*)] 50 - 100 mg PO Q4HRS PRN 15. Fluticasone/Salmeter 250/50Mcg [Advair 250/50 (*)] 1 puffs IH BID 16. Metoprolol Tartrate [Lopressor 25 mg (*)] 25 mg PO BID 17. guaiFENesin [Mucinex 600 MG (*)] 600 mg PO BID PENDING STUDIES/LABS 1. CXR prior to surgical follow-up F/U APPOINTMENTS 1. Barry Padgett - 06/21/17, 9:30 2. Silverio Dang - 6-8 weeks
[2017-06-14] MEDS: METOPROLOL TARTRATE 25 MG TAB PO SCH ×2 (08:35→20:12)
[2017-06-14] MEDS: NICOTINE 21 MG/24 HR PATCH TD SCH (08:35)
[2017-06-14] MEDS: guaiFENesin 600 MG TAB.ER PO SCH ×2 (08:35→20:12)
[2017-06-14] MEDS: ASPIRIN 81 MG CHEWABLE TAB PO SCH (08:35)
[2017-06-14] MEDS: PANTOPRAZOLE SODIUM 40 MG TAB PO SCH (08:36)
[2017-06-14] MEDS: TIMOLOL OP SCH (08:45)
[2017-06-14] MEDS: SENNOSIDES/DOCUSATE SODIUM TAB PO SCH ×2 (09:00→20:13)
[2017-06-14] MEDS: FLUTICASONE/SALMETER 250/50MCG DISKUS IH SCH ×2 (11:28→22:29)
[2017-06-14] MEDS: traMADol 50 MG TAB PO PRN (15:45)
--- NOTE | 2017-06-14 17:17 | ASMTCMCOM ---
CM Note CM Note Notes: 06/14/2017 Case Management Note Met w/pt and RAYRAY Fonseca. Discussed denial by [employer] for SNF rehab placement. Pt to call [employer] and discuss w/[employer]. Pt reports that student affairs vice president at apartment states that carpets are dry but is unsure of status of broken pipe and hole in the wall. Pt refuses to have son check on apartment and states that none of his friends are available. Case management requested pt explore options for d/c with friends. Pt refuses to stay with son and instructed case management not to call son "It's my problem to solve not his:" Case Management to resume discussions in the morning. Date Signed: 06/14/2017 05:17 PM Electronically Signed By:Gina Bergman RN
--- NOTE | 2017-06-14 17:17 | ASMTCMCOM ---
CM Note CM Note Notes: 06/14/2017 Case Management Note Met w/pt and RAYRAY Fonseca. Discussed denial by [employer] for SNF rehab placement. Pt to call [employer] and discuss w/[employer]. Pt reports that vice president compliance at apartment states that carpets are dry but is unsure of status of broken pipe and hole in the wall. Pt refuses to have son check on apartment and states that none of his friends are available. Case management requested pt explore options for d/c with friends. Pt refuses to stay with son and instructed case management not to call son "It's my problem to solve not his:" Case Management to resume discussions in the morning. Date Signed: 06/14/2017 05:17 PM Electronically Signed By:Gina Bergman RN
--- NOTE | 2017-06-14 17:17 | ASMTCMCOM ---
CM Note CM Note Notes: 06/14/2017 Case Management Note Met w/pt and RAYRAY Fonseca. Discussed denial by [employer] for SNF rehab placement. Pt to call [employer] and discuss w/[employer]. Pt reports that resident services coordinator at apartment states that carpets are dry but is unsure of status of broken pipe and hole in the wall. Pt refuses to have son check on apartment and states that none of his friends are available. Case management requested pt explore options for d/c with friends. Pt refuses to stay with son and instructed case management not to call son "It's my problem to solve not his:" Case Management to resume discussions in the morning. Date Signed: 06/14/2017 05:17 PM Electronically Signed By:Gina Bergman RN
[2017-06-14] MEDS: ABACAVIR SULFATE PO SCH (20:12)
[2017-06-14] MEDS: LAMIVUDINE PO SCH (20:12)
[2017-06-14] MEDS: EFAVIRENZ 600 MG TAB PO SCH (20:12)
[2017-06-15] MEDS: ACETYLCYSTEINE 10% 30 ML VIAL IH SCH ×3 (02:13→13:18)
[2017-06-15] MEDS: HEPARIN 5,000 UNIT/0.5 ML SYR SC SCH ×2 (05:23→13:19)
[2017-06-15] MEDS: HYDROCODONE/APAP 5/325 TAB PO PRN ×3 (05:23→15:29)
--- NOTE | 2017-06-15 07:43 | SOAPPROG ---
SOAP Progress Note Assessment/Plan: POD #7: CABGx4 (PETIT-LAD, seq SVG to OM1/OM2, SVG-RCA) Severe CAD s/p C4 - BB, ASA, no statin d/t "allergy" - SCDs/heparin SQ for DVT prophylaxis - All tubes/wires out Acute blood loss anemia - Stable without the need for blood product transfusions Current tobacco abuse with COPD and persistent cough - Reevaluated by pulmonology and Advair added - Plan for 6-8 outpatient follow-up HIV - Pre-op meds continued Dysphagia - Evaluated by [facility] and cleared for regular consistency with think liquids. - Stable Disposition - SNF vs home pending insurance Subjective: No complaints this morning. Pain is well-controlled. Coughing has been better. Objective: Vital Signs Temp Pulse Resp BP Pulse Ox 36.9 C 84 18 124/75 H 92 06/15/17 07:05 06/15/17 07:05 06/15/17 07:05 06/15/17 07:05 06/15/17 07:05 Laboratory Results 06/12/17 06:15 06/11/17 06:40 06/14/17 06/15/17 06/16/17 05:59 05:59 05:59 Intake Total 980 1420 Output Total 602 500 Balance 378 920 Physical Exam - Physical Exam General Appearance: WD/WN, alert, no apparent distress EENT: No scleral icterus (R), No scleral icterus (L) Neck: normal inspection Respiratory: No respiratory distress Cardiac/Chest: regular rate, rhythm Abdomen: non-tender, soft, No distended Skin: normal color, warm/dry Extremities: No pedal edema Neuro/Psych: no motor/sensory deficits, alert, normal mood/affect, oriented x 3 ICD10 Worksheet Patient Problems: Problems Problem Status Onset S/P CABG x 4 Acute CAD S/P percutaneous coronary angioplasty Acute CAD (coronary artery disease) Chronic Chest pain Chronic HIV (human immunodeficiency virus infection) Chronic Hypertension Chronic
[2017-06-15] MEDS: ASPIRIN 81 MG CHEWABLE TAB PO SCH (09:17)
[2017-06-15] MEDS: METOPROLOL TARTRATE 25 MG TAB PO SCH (09:17)
[2017-06-15] MEDS: guaiFENesin 600 MG TAB.ER PO SCH (09:17)
[2017-06-15] MEDS: PANTOPRAZOLE SODIUM 40 MG TAB PO SCH (09:18)
[2017-06-15] MEDS: NICOTINE 21 MG/24 HR PATCH TD SCH (09:18)
[2017-06-15] MEDS: FLUTICASONE/SALMETER 250/50MCG DISKUS IH SCH (09:19)
[2017-06-15] MEDS: SENNOSIDES/DOCUSATE SODIUM TAB PO SCH (09:21)
[2017-06-15] MEDS: TIMOLOL OP SCH (09:21)
[2017-06-15 11:22] VITALS: PULSE 80; RESP 16; TEMP 98; O2SAT 90
--- NOTE | 2017-06-15 14:20 | ASMTCMCOM ---
CM Note CM Note Notes: 06/15/2017 Case Management Note Pt accepted to [facility]. [facility] arranged transport with [facility] for 1600 pickup. Pt and RN alerted to dispo plan. RN to call report. Final orders faxed. Date Signed: 06/15/2017 02:20 PM Electronically Signed By:Gina Bergman RN
--- NOTE | 2017-06-15 14:20 | ASMTCMCOM ---
CM Note CM Note Notes: 06/15/2017 Case Management Note Pt accepted to [facility]. [facility] arranged transport with [facility] for 1600 pickup. Pt and RN alerted to dispo plan. RN to call report. Final orders faxed. Date Signed: 06/15/2017 02:20 PM Electronically Signed By:Gina Bergman RN
[2017-06-15 14:40] VITALS: BP 109/80
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
== END 2017-06-15 16:04 | DRG 236 ==
LOC: F3N 07:08 → F2N 12:52 → F2W 06-09 16:39
PROVIDERS: ADMIT Thoracic Surgery (Cardiothoracic Vascular Surgery); ATTEND Thoracic Surgery (Cardiothoracic Vascular Surgery)
PROC: 5A1221Z Performance of Cardiac Output, Continuous (ICD-10-PCS; principal; 2017-06-08 08:30)
PROC: 02100Z9 Bypass Coronary Artery, One Artery from Left Internal Mammary, Open Approach (ICD-10-PCS; principal; 2017-06-08 08:30)
PROC: 06BQ4ZZ Excision of Left Saphenous Vein, Percutaneous Endoscopic Approach (ICD-10-PCS; principal; 2017-06-08 08:30)
PROC: 021209W Bypass Coronary Artery, Three Arteries from Aorta with Autologous Venous Tissue, Open Approach (ICD-10-PCS; principal; 2017-06-08 08:30)
DX: I25.118 Atherosclerotic heart disease of native coronary artery with other forms of angina pectoris (principal); D62 Acute posthemorrhagic anemia; J44.9 Chronic obstructive pulmonary disease, unspecified; I10 Essential (primary) hypertension; E78.5 Hyperlipidemia, unspecified; E11.9 Type 2 diabetes mellitus without complications; I73.9 Peripheral vascular disease, unspecified; E55.9 Vitamin D deficiency, unspecified; G47.33 Obstructive sleep apnea (adult) (pediatric); Z21 Asymptomatic human immunodeficiency virus [HIV] infection status; Z72.0 Tobacco use; Z79.82 Long term (current) use of aspirin; Z95.5 Presence of coronary angioplasty implant and graft
CPT/HCPCS: 82947-QW; 92526-GN; 92610-GN; 97116-GP; 97161-GP; 97165-GO; 97530-GP; 97535-GO; G8996-GN-CI; G8997-GN-CH; G8998-GN-CH; J0153; J0282; J0690; J1170; J1265; J1644; J1815; J1885; J1940; J2001; J2150; J2250; J2260; J2370; J2440; J2704; J2720; J2930; J3010; J7060; P9041

== ENCOUNTER → 2017-06-21 | Outpatient (CLI) | payer OTHER | LOC: FIMAGING 09:12 | PROVIDERS: ATTEND Thoracic Surgery (Cardiothoracic Vascular Surgery) | DX: Z09 Encounter for follow-up examination after completed treatment for conditions other than malignant neoplasm (principal); Z95.1 Presence of aortocoronary bypass graft ==

== ENCOUNTER 2017-06-28 05:53 | Inpatient (IN) | payer OTHER ==
[2017-06-28] MEDS ORDERED: NITROGLYCERIN 0.4 MG BTL SL PRN (06:02)
[2017-06-28] MEDS ORDERED: NS 1,000 ML IV ONE (06:02)
--- NOTE | 2017-06-28 06:03 | CPEKG ---
Heart Rate: 90 RR Interval: 667 P-R Interval: 128 QRSD Interval: 96 QT Interval: 388 QTC Interval: 475 P [place]: 79 QRS [place]: -3 T Wave [place]: 142 EKG Severity - ABNORMAL ECG - EKG Impression: SINUS RHYTHM EKG Impression: VENTRICULAR PREMATURE COMPLEX EKG Impression: PROBABLE LEFT ATRIAL ABNORMALITY EKG Impression: LOW VOLTAGE IN FRONTAL LEADS EKG Impression: REPOL ABNRM SUGGESTS ISCHEMIA, DIFFUSE LEADS Electronically Signed By: Jonel Alonzo 28-Jun-2017 06:58:08
--- NOTE | 2017-06-28 06:07 | EDPHY ---
H & P HPI/ROS: HPI CHIEF COMPLAINT: Right-sided chest discomfort, right arm pain HISTORY OF PRESENT ILLNESS: Patient is a 71-year-old male, history for coronary disease with multiple stents, and on June 08 recently had bypass surgery by Dr. Padgett, 4 VESSEL, COPD, HIV, viral load undetectable, presents emergency room by EMS for discomfort in his chest. States that he woke up around 2:00 a.m. with this discomfort he describes a burning sensation as well as "Knot" in the right side of his chest. Does radiate down his right arm. It does not go to his jaw or down his left arm left chest. It is not associated with breathing. There is no pleuritic pain. Denies vomiting. Nausea or diaphoresis. Patient states that he woke up with this try to get comfortable over multiple hours but could not and the pain persisted so decided call 911. Patient reports that he stop smoking 14 days but has returned to smoking tobacco. Patient receive full-dose aspirin prior to arrival. Dr. Padgett is his cardiothoracic surgeon Dr. Demond Miller is his helmet binder Past Medical History: Coronary artery disease, HIV, COPD ongoing tobacco use Past Surgical History: Recent CABG, coronary stents, appendectomy, cholecystectomy Social History: Denies drugs or alcohol. Ongoing tobacco use. Family History: Noncontributory ROS REVIEW OF SYSTEMS: A comprehensive 10 point review of systems is otherwise negative aside from elements mentioned in the history of present illness. Exam Constitutional triage nursing summary reviewed, vital signs reviewed, awake/ alert. Eyes normal conjunctivae and sclera, EOMI, PERRLA. HENT normal inspection, atraumatic, moist mucus membranes, no epistaxis, neck supple/ no meningismus, no raccoon eyes. Respiratory clear to auscultation bilaterally, normal breath sounds, no respiratory distress, no wheezing. Cardiovascular chest wall CABG incision clean dry and intact. Nontender palpation. rate normal, regular rhythm, no murmur, no edema, distal pulses normal. Gastrointestinal soft, non-tender, no rebound, no guarding, normal bowel sounds, no distension, no pulsatile mass. Genitourinary no CVA tenderness. Musculoskeletal no midline vertebral tenderness, full range of motion, no calf swelling, no tenderness of extremities, no meningismus, good pulses, neurovascularly intact. Skin pink, warm, & dry, no rash, skin atraumatic. Neurologic awake, alert and oriented x 3, AAOx3, moves all 4 extremities equally, motor intact, sensory intact, CN II-XII intact, normal cerebellar, normal vision, normal speech. Psychiatric normal mood/affect. Heme/Lymph/Immune no lymphadenopathy. Differential diagnosis includes but is not limited to: ACS, atypical chest pain , pneumothorax, pneumonia, pulmonary embolism, aortic dissection, congestive heart failure, tumor, musculoskeletal pain, esophageal pain, GERD, peptic ulcer disease, pancreatitis Medical Decision Making: Plan for this patient full surveillance system monitor, IV establishment, obtain EKG, rule out acute coronary syndrome, nitroglycerin to see if this improves his discomfort, check blood work, troponin. Re-evaluate closely observed. Re-evaluation: EKG interpretation by me on record in [facility] system. Impression time of EKG 6:01 a.m., sinus rhythm rate of 90. Subtle ST depression V1 V2 V3 V4 V5 and V6. T-wave abnormalities symmetrically inverted in V1 V2 V3 V4 V5. This concerning for ischemia. This is changed from his previous EKG dated 06/13/2017. 0613: This patient was given nitroglycerin. This completely resolved his pain. Will repeat his EKG at this time. He is pain-free. EKG interpretation by me on record in [employer] system. Impression time of EKG 6:18 a.m. this EKG is performed no chest pain. Sinus rhythm rate of 81. ST depression with T-wave abnormalities again seen in the anterior leads V1 V2 V3 V4 V5 and V6. No ST elevation. Unchanged from previous EKG. Concerning for ischemia. 0622: Dr. Demond Miller since helmet binder several consult him given how ischemic looking his EKG is as well as his chest discomfort. Additionally the patient is not on any anticoagulation and I will heparinize him at this time.. 0635: Spoke with Dr. Demond Miller recommends nitroglycerin drip for discomfort, additionally heparin. Will plan on cathing him today. NPO. Updated patient. Patient be admitted to the medicine service. Reason for admission chest pain with ischemic EKG. 0635: Patient was chest pain-free after 1 dose of nitro however his chest discomfort as return. I have ordered him IV fentanyl another 50 mcg and nitroglycerin drip. Consult the hospitalist service for this patient. Patient has heparin going. Nitroglycerin to be started soon. Will started 20. Titrate for discomfort as well as watch blood pressure. ED x-ray chest one view shows cardiomegaly bilateral pleural effusions haziness and bilateral lower lobes. Critical Care: Total Critical Care Time Spent Managing this Patient: 65Minutes. This time was spent Exclusively with this patient. This Care was exclusive of procedures. The Organ System/life at risk was cardiac This Patient was in Critical Condition because angina, chest pain, non STEMI Spoke with Dr. Ross hospital Service. Will Plan to Admit ICU. For ANGINA. On heparin on nitroglycerin. Patient made NPO. Plan for catheterization today. Source: Patient, EMS - Personal History Tetanus Vaccine Date: 2010 - Medical/Surgical History Hx Asthma: No Hx Chronic Respiratory Disease: No Hx Diabetes: No Hx Cardiac Disease: Yes Hx Renal Disease: No Hx Cirrhosis: No Hx Alcoholism: No Hx HIV/AIDS: Yes Hx Splenectomy or Spleen Trauma: No Other PMH: PRE-DIABETIC; cardiac stent; kidney stones; hernia repair, appy, T&A ; Angela; cervical spine sx x3; tonselectomy, HIV+; COPD; AAA; HTN; SULAIMAN; PVD with stent in SFA - Social History Smoking Status: Heavy smoker Constitutional: Initial Vital Signs Temperature (C) 36.6 C 06/28/17 06:00 Heart Rate 90 06/28/17 06:00 Respiratory Rate 18 06/28/17 06:00 Blood Pressure 153/92 H 06/28/17 06:00 O2 Sat (%) 94 06/28/17 06:00 O2 Delivery Mode Room Air O2 (L/minute) 2 Allergies/Adverse Reactions: Avoznwv-Dvd-Qaw Reductase Inhibitor Allergy (Severe, Verified 06/28/17 06:03) THIGH CRAMPING Home Medications: Medication Instructions Recorded Abacavir Sulfate/Lamivudine 1 each PO HS 04/09/14 [Epzicom Tablet] Cholecalciferol Vit D3 [Vitamin D3 2,000 units PO DAILY 04/09/14 (*)] Efavirenz [Sustiva] 600 mg PO HS 04/09/14 PARoxetine HCL [Paxil 30mg (*)] 30 mg PO DAILY 04/09/14 traZODone [traZODONE 50MG (*)] 50 mg PO HS #30 tab 01/16/15 Testosterone Cyp 100 mg IM Q14D 01/28/16 [Depo-Testosterone 100mg/ml inj (*)] Herbals/Supplements -Info Only 1 ea PO DAILY 05/24/17 Timolol [Betimol] 1 drop OP DAILY 05/27/17 Aspirin [Aspirin 81mg (*)] 81 mg PO DAILY tab.chew 06/13/17 Benzonatate [Tessalon Pearles] 100 mg PO TID PRN cap 06/13/17 Fluticasone/Salmeter 250/50Mcg 1 puffs IH BID disk 06/14/17 [Advair 250/50 (*)] Metoprolol Tartrate [Lopressor 25 25 mg PO DAILY 06/28/17 mg (*)] celeCOXIB [Celebrex (*)] 200 mg PO DAILY 06/28/17 Medical Decision Making - Data Points Laboratory Results: Laboratory Results 06/28/17 05:50 06/28/17 05:50 Medications Given: Efavirenz (Sustiva) 600 mg PO [facility] Stop: 12/25/17 20:59 Last Admin: 06/28/17 21:58 Dose: Not Given Nitroglycerin/Dextrose (Nitroglycerin 200 Mcg/Ml (Premix)) 250 mls @ 0 mls/hr IV CONT ELVIN; Titrate PRN Reason: Protocol Stop: 12/25/17 06:59 Last Admin: 06/28/17 06:51 Dose: 250 mls Melatonin (Melatonin) 9 mg PO [facility] Stop: 12/25/17 20:59 Last Admin: 06/28/17 20:39 Dose: 9 mg Miscellaneous Medication (Non-Formulary) 1 ea PO [facility] Stop: 12/25/17 20:59 Last Admin: 06/28/17 21:59 Dose: Not Given Nicotine (Nicoderm Cq) 21 mg TD DAILY ELVIN Stop: 12/25/17 14:14 Last Admin: 06/28/17 16:34 Dose: 21 mg Nitroglycerin (Nitrostat) 0.4 mg SL Q5M PRN PRN Reason: Chest Pain Last Admin: 06/28/17 06:06 Dose: 0.4 mg Fluticasone/Salmeterol (Advair) 1 puffs IH BID ELVIN Stop: 12/25/17 20:59 Last Admin: 06/28/17 21:59 Dose: Not Given Trazodone HCl (Trazodone) 50 mg PO HS LEVIN Stop: 12/25/17 20:59 Last Admin: 06/28/17 20:39 Dose: 50 mg Discontinued Medications Diazepam (Valium) 5 mg PO ONCALL ONE Stop: 06/28/17 08:44 Last Admin: 06/28/17 12:33 Dose: Not Given Diphenhydramine HCl (Benadryl) 25 mg PO ONCALL ONE Stop: 06/28/17 08:44 Last Admin: 06/28/17 12:33 Dose: Not Given Famotidine (Pepcid) 20 mg PO ONCALL ONE Stop: 06/28/17 08:44 Last Admin: 06/28/17 12:34 Dose: Not Given Fentanyl (Sublimaze) 50 mcg IVP EDNOW ONE Stop: 06/28/17 06:22 Last Admin: 06/28/17 06:28 Dose: 50 mcg Heparin Sodium (Porcine) (Heparin Injection) 0 unit IVP ONCE ONE PRN Reason: Protocol Stop: 06/28/17 07:24 Last Admin: 06/28/17 12:34 Dose: Not Given Sodium Chloride (Ns) 1,000 mls @ 0 mls/hr IV EDNOW ONE; Wide Open PRN Reason: Protocol Stop: 06/28/17 06:03 Last Admin: 06/28/17 06:05 Dose: 1,000 mls Heparin Sodium (Porcine) (Heparin 50 Units/Ml (Premix)) 500 mls @ 0 mls/hr IV EDNOW ONE; Per Protocol PRN Reason: Protocol Stop: 06/28/17 06:21 Last Admin: 06/28/17 06:36 Dose: 500 mls Sodium Chloride (Ns) 1,000 mls @ 100 mls/hr IV CONT ELVIN Stop: 06/28/17 21:14 Last Admin: 06/28/17 12:00 Dose: 1,000 mls Prasugrel (Effient) 60 mg PO ONCE ONE Stop: 06/28/17 11:14 Last Admin: 06/28/17 12:35 Dose: Not Given Departure - Departure Disposition: To OP Cath/Surgery Clinical Impression: Angina at rest Chest pain Qualifiers: Chest pain type: unspecified Qualified Code(s): R07.9 - Chest pain, unspecified Condition: Serious
[2017-06-28 06:11] LABS: % IMMATURE GRANULYOCYTES 0.3 % (0.0-1.1); ABSOLUTE IMMATURE GRANULOCYTES 0.03 10^3/uL (0.00-0.10); ADD DIFF? NO; ADD MORPH? NO; ADD SCAN? NO; ATYPICAL LYMPHOCYTE FLAG 0 (0-99); FRAGMENT RBC FLAG 0 (0-99); HEMATOCRIT 38.2 % (40.0-51.0); HEMOGLOBIN 12.3 g/dL (13.7-17.5); LEFT SHIFT FLG 0 (0-99); LIPEMIA HEMOLYSIS FLAG 80 (0-99); MEAN CELL HEMOGLOBIN 29.4 pg (27.9-34.1); MEAN CELL HEMOGLOBIN CONCENTR. 32.2 g/dL (32.4-36.7); MEAN CELL VOLUME 91.4 fL (81.5-99.8); PLATELET CLUMPS FLAG 0 (0-99); PLATELET COUNT 461 10^3/uL (150-400); RED BLOOD CELL COUNT 4.18 10^6/uL (4.40-6.38); RED CELL DISTRIBUTION WIDTH 14.7 % (11.5-15.2)
[2017-06-28] MEDS ORDERED: HEPARIN/DEXTROSE 500 ML IV ONE (06:20)
--- NOTE | 2017-06-28 06:20 | CPEKG ---
Heart Rate: 81 RR Interval: 741 P-R Interval: 152 QRSD Interval: 98 QT Interval: 400 QTC Interval: 465 P [place]: 66 QRS [place]: -24 T Wave [place]: 188 EKG Severity - ABNORMAL ECG - EKG Impression: SINUS RHYTHM EKG Impression: MULTIFORM VENTRICULAR PREMATURE COMPLEXES EKG Impression: BORDERLINE LEFT AXIS DEVIATION EKG Impression: LOW VOLTAGE IN FRONTAL LEADS EKG Impression: REPOL ABNRM SUGGESTS ISCHEMIA, DIFFUSE LEADS Electronically Signed By: Jonel Alonzo 28-Jun-2017 06:58:08
[2017-06-28] MEDS ORDERED: fentaNYL 100 MCG/2 ML INJ IVP ONE (06:21)
[2017-06-28 06:22] LABS: INR 1.07 (0.83-1.16); PROTIME(PATIENT) 13.8 SEC (12.0-15.0)
[2017-06-28 06:23] LABS: APTT 27.6 SEC (23.0-38.0)
[2017-06-28 06:32] LABS: ALANINE AMINOTRANSFERASE 32 IU/L (21-72); ALBUMIN 4.5 g/dL (3.5-5.0); ALKALINE PHOSPHATASE 141 IU/L (38-126); ANION GAP 18 mEq/L (8-16); ASPARTATE AMINOTRANSFERASE 20 IU/L (17-59); BILIRUBIN,TOTAL 0.3 mg/dL (0.1-1.4); BILIRUBIN-CONJUGATED 0.2 mg/dL (0.0-0.5); BILIRUBIN-UNCONJUGATED 0.1 mg/dL (0.0-1.1); CALCIUM 10.4 mg/dL (8.5-10.4); CARBON DIOXIDE 22 mEq/l (22-31); CHLORIDE 103 mEq/L (97-110); CREATININE 1.2 mg/dL (0.7-1.3); GLOMERULAR FILTRATION RATE 60; GLUCOSE 152 mg/dL (70-100); MAGNESIUM 2.1 mg/dL (1.6-2.3); POTASSIUM 4.8 mEq/L (3.5-5.2); SODIUM 143 mEq/L (134-144); TOTAL PROTEIN 7.9 g/dL (6.3-8.2)
[2017-06-28 06:44] LABS: CREATINE KINASE-MB FRACTION 2.71 ng/mL (0.00-3.19); TROPONIN I 0.085 ng/mL (0.000-0.034)
[2017-06-28] MEDS ORDERED: NITROGLYCERIN/DEXTROSE 250 ML IV SCH (07:00)
[2017-06-28] MEDS ORDERED: ACETAMINOPHEN 325 MG TAB PO PRN (07:19)
[2017-06-28] MEDS ORDERED: ONDANSETRON 4 MG/2 ML VIAL IVP PRN (07:19)
[2017-06-28] MEDS ORDERED: HYDROCODONE/APAP 5/325 TAB PO PRN ×2 (07:19→11:13)
[2017-06-28] MEDS ORDERED: LORazepam 2 MG/ML INJ IVP PRN (07:19)
[2017-06-28] MEDS ORDERED: HEPARIN 10,000 UNIT/10 ML MDV IVP ONE (07:23)
[2017-06-28] MEDS ORDERED: HEPARIN 10,000 UNIT/10 ML MDV IVP PRN (07:23)
[2017-06-28] MEDS ORDERED: HEPARIN/DEXTROSE 500 ML IV SCH (07:30)
[2017-06-28] MEDS ORDERED: NS 1,000 ML IV SCH ×2 (07:30→11:15)
[2017-06-28] MEDS ORDERED: FAMOTIDINE 20 MG TAB PO ONE (08:43)
[2017-06-28] MEDS ORDERED: DIAZEPAM 5 MG TAB PO ONE (08:43)
[2017-06-28] MEDS ORDERED: diphenhydrAMINE 25 MG CAP PO ONE (08:43)
[2017-06-28] MEDS ORDERED: LIDOCAINE 1% 300 MG/30 ML SDV ONE (09:05)
[2017-06-28] MEDS ORDERED: fentaNYL 100 MCG/2 ML INJ ONE (09:06)
[2017-06-28] MEDS ORDERED: MIDAZOLAM 2 MG/2 ML VIAL ONE (09:06)
[2017-06-28] MEDS ORDERED: IOPAMIDOL (ISOVUE-370) 150 ML BTL IV ONE ×2 (09:06→10:48)
[2017-06-28] MEDS ORDERED: BENZONATATE 100 MG CAP PO PRN (09:24)
--- NOTE | 2017-06-28 09:44 | GHP ---
[f rep st] HISTORY AND PHYSICAL DATE OF ADMISSION: 06/28/2017 CHIEF COMPLAINT: Chest pain. HISTORY OF PRESENT ILLNESS: This is a 71-year-old man who had underwent a 4-vessel CABG on June [address] Padgett, presents with chest pain. This is described as a right-sided sharp/burning pain whic h woke him from sleep at 2:00 a.m. This is not associated with any shortness of breath, nausea, vomi ting, dizziness, diaphoresis. This pain radiates down his right arm as well. He has been compliant with his cardiac medications including aspirin. He did start smoking a few days ago. CABG was a 4-vessel CABG. He did have a PETIT to LAD as well as an SVG to OM1 and 2, and an SVG to th e RCA. He has a history of stents prior to this CABG. On route he received a nitroglycerin which did relieve his chest pain. It also dropped his pressure. When I am seeing him, he is on a heparin drip as well as a nitroglycerin drip and he still has some mild ongoing chest pain. PAST MEDICAL/SURGICAL HISTORY: 1. Coronary artery disease. 2. COPD not using oxygen. 3. HIV with an undetectable viral load, followed by Kiarra Dougherty. 4. Appendectomy. 5. Cholecystectomy. MEDICATIONS: Please see medication reconciliation. ALLERGIES: To statins. FAMILY HISTORY: Coronary artery disease. SOCIAL HISTORY: He recently started smoking although he had quit for 14 days after being discharged. REVIEW OF SYSTEMS: A 10-point review of systems is conducted and is negative except per HPI. PHYSICAL EXAM: VITAL SIGNS: Blood pressure 112/73, heart rate 83, respiration rate 18, saturating 9 3% on 2 L. Temperature is 36.9. GENERAL: The patient is a pleasant man who appears comfortable, in no acute distress. HEENT: Shows him to be normocephalic, atraumatic. CHEST: Shows him to have a midline sternotomy which is healing well. CARDIOVASCULAR: Distant S1-S2 but I do not appreciate any murmurs, rubs, or gallops. He has no elevated JVD. No lower extremity edema. PULMONARY: Lungs cl ear to auscultation bilaterally. ABDOMEN: Soft, nontender, nondistended. SKIN: Shows no rash. : No Escobar. NEUROLOGIC: Shows him to be alert and oriented x3. He is moving all extremities. PSY CHIATRIC: Shows normal mood and affect. LABS: Hemoglobin is 12.3, platelets are 461, INR 1.0. Anion gap is 18. Glucose 152. Troponin 0.08 5. BNP is 1110. DATA: 1. I personally viewed and interpreted his electrocardiogram. This shows deep inverted T-waves in l rosaura V1 through V6. Most prominent in leads V2, V3 and V4. He has 3 different PVCs on the strip. 2. Chest x-ray, which I personally viewed and interpreted, shows normal cardiac silhouette, some mil d bibasilar atelectasis. I discussed this with Sam Enid of cardiology. IMPRESSION AND PLAN: This is a 71-year-old man with recent coronary artery bypass grafting, who pres ents with chest pain and concerning EKG. 1. Chest pain: Agree with plans to take to catheterization. Dr. Padgett has been notified. We will continue nitroglycerin drip as well as heparin drip, to be determined post catheterization based on f indings. Currently he does not have any overt evidence of heart failure. He is having significant v entricular ectopy. 2. Coronary artery disease with recent coronary artery bypass grafting as well as a history of stent s: We will continue cardiac medications as appropriate post catheterization. 3. Chronic obstructive pulmonary disease: He says that this is mild. He is not on any oxygen or pr ednisone. 4. Human immunodeficiency virus: He has had an undetectable viral load for 10 years. 5. Anemia: This is up from his postoperative hemoglobin checks. BILLING: I spent a total of 45 minutes of floor critical care time managing acute cardiac ischemia i n a patient having had a recent CABG. /[id number]/MODL
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
[2017-06-28] MEDS ORDERED: BIVALIRUDIN 250 MG/5 ML VIAL IV ONE (10:27)
[2017-06-28] MEDS ORDERED: PRASUGREL HCL 10 MG TAB ONE (11:05)
[2017-06-28] MEDS ORDERED: ATROPINE SULFATE 1 MG/10 ML SYR IVP PRN (11:13)
[2017-06-28] MEDS ORDERED: TEMAZEPAM 15 MG CAP PO PRN (11:13)
[2017-06-28] MEDS ORDERED: PRASUGREL HCL 10 MG TAB PO ONE (11:13)
--- NOTE | 2017-06-28 11:24 | PDDXCAT ---
Diagnostic Cath Note - . Date: 06/28/17 Bioprocess Development Engineer: Huey Indication: other (CAD with h/o PCI and recent CABG, unstable recurrent angina, and new ECG abnormalities.) - Procedure Access: right groin Procedure: left heart catheterization, coronary angiography, left ventriculogram , vein graft injection, PETIT injection - Materials Left Heart Cath size: 6F Left Heart Cath materials: standard multipack (JL4, JR4, pigtail), SIOBHAN - Findings-Left Heart Catheterization LM: Normal. LAD: Diffuse disease up to 70% in the proximal to mid-LAD; competitive flow in the distal LAD from PETIT graft. LCX: Diffuse disease in the proximal circumflex up to 60%; OM-1 with 80% proximal stensosis and 90% mid stenosis. RCA: Diffuse disease up to 60-70% in the proximal to mid-RCA. rSV) Sequential SVG to OM-3 and OM-1 patent to OM-3 but distal segment to OM -1 is 100% thrombotically occluded. 2) SVG to PDA widely patent. PETIT: PETIT to LAD graft widely patent. EDP: 12 mmHg LVEF: 65% Wall motion: Normal. Complications: None Estimated blood loss: <50ml Closure method: Angioseal Assessment: 1) Normal left ventricular systolic function. 2) CAD as described above. 3) PCI of circumflex OM-1 using a single drug coated stent. Intervention: Based on the patient's clinical history and diagnostic angiography, the decision was made to perform PCI of the first obtuse marginal branch of the circumflex. Patient received intravenous Angiomax. A 6 Yi FL-4 guide catheter was advanced to the left main ostium. An Intuition guidewire was advanced to the distal portion of the first obtuse marginal branch. Predilatation of the proximal and mid-vessel stenoses was carried out using a 2.0 x 12 mm Emerge balloon. A 2.25 x 12 mm Synergy stent was advanced to the mid vessel stenosis and was deployed at high pressure. Attempts to pass a second 2.25 x 12 mm Synergy stent to the proximal stenosis were unsuccessful. Final angiograms demonstrated 0% residual stenosis at the mid-vessel lesion and 20% residual stenosis at the proximal lesion with TOVA-3 flow throughout. Patient Problems: Problems Problem Status Onset Angina at rest Acute Chest pain Chronic CAD S/P percutaneous coronary angioplasty Acute S/P CABG x 4 Acute CAD (coronary artery disease) Chronic HIV (human immunodeficiency virus infection) Chronic Hypertension Chronic
--- NOTE | 2017-06-28 11:50 | CPEKG ---
Heart Rate: 90 RR Interval: 667 P-R Interval: 152 QRSD Interval: 92 QT Interval: 365 QTC Interval: 447 P [place]: 68 QRS [place]: -27 T Wave [place]: 167 EKG Severity - ABNORMAL ECG - EKG Impression: PACEMAKER SPIKES EKG Impression: SINUS RHYTHM EKG Impression: MULTIFORM VENTRICULAR PREMATURE COMPLEXES EKG Impression: PROBABLE LEFT ATRIAL ABNORMALITY EKG Impression: NONSPECIFIC REPOL ABNORMALITY, DIFFUSE LEADS Electronically Signed By: Javy Walls 28-Jun-2017 15:36:03
--- NOTE | 2017-06-28 12:10 | PDMN ---
Medical Necessity Medical necessity: Patient meets INPT criteria per physician note and [facility] (discharged 06/15 after CABG x 4; new onset chest pain /10 w/ new T wave inversions in anterior leads on EKG, troponin elevated; chest pain improved w/nitro gtt IV; awaiting emergent cardiac cath; anticipated LOS > 2 midnights for further eval and treatment of acute cardiac ischemia.)
[2017-06-28] MEDS: NICOTINE 21 MG/24 HR PATCH TD SCH (16:34)
[2017-06-28] MEDS ORDERED: FLUTICASONE/SALMETER 250/50MCG DISKUS IH SCH (21:00)
[2017-06-28] MEDS ORDERED: LAMIVUDINE PO SCH (21:00)
[2017-06-28] MEDS ORDERED: MELATONIN 3 MG TAB PO SCH (21:00)
[2017-06-28] MEDS ORDERED: traZODone 50 MG TAB PO SCH (21:00)
[2017-06-28] MEDS ORDERED: EFAVIRENZ 600 MG TAB PO SCH ×2 (21:00)
[2017-06-28] MEDS ORDERED: ABACAVIR SULFATE 300 MG TAB PO SCH (21:00)
[2017-06-28] MEDS ORDERED: ABACAVIR SULFATE PO SCH (21:00)
[2017-06-28] MEDS: FLUTICASONE/SALMETER 250/50MCG DISKUS IH SCH (21:59)
[2017-06-29 05:40] LABS: % IMMATURE GRANULYOCYTES 0.2 % (0.0-1.1); ABSOLUTE IMMATURE GRANULOCYTES 0.01 10^3/uL (0.00-0.10); ADD DIFF? NO; ADD MORPH? NO; ADD SCAN? NO; ATYPICAL LYMPHOCYTE FLAG 0 (0-99); FRAGMENT RBC FLAG 0 (0-99); HEMATOCRIT 32.9 % (40.0-51.0); HEMOGLOBIN 10.7 g/dL (13.7-17.5); LEFT SHIFT FLG 0 (0-99); LIPEMIA HEMOLYSIS FLAG 80 (0-99); MEAN CELL HEMOGLOBIN 29.1 pg (27.9-34.1); MEAN CELL HEMOGLOBIN CONCENTR. 32.5 g/dL (32.4-36.7); MEAN CELL VOLUME 89.4 fL (81.5-99.8); MEAN PLATELET VOLUME 8.6 fL (8.7-11.7); PLATELET CLUMPS FLAG 10 (0-99); PLATELET COUNT 339 10^3/uL (150-400); RED BLOOD CELL COUNT 3.68 10^6/uL (4.40-6.38); RED CELL DISTRIBUTION WIDTH 14.5 % (11.5-15.2)
[2017-06-29 05:55] LABS: ALBUMIN 3.4 g/dL (3.5-5.0); ANION GAP 11 mEq/L (8-16); ASPARTATE AMINOTRANSFERASE 47 IU/L (17-59); BILIRUBIN,TOTAL 0.2 mg/dL (0.1-1.4); CALCIUM 8.9 mg/dL (8.5-10.4); CARBON DIOXIDE 19 mEq/l (22-31); CHLORIDE 108 mEq/L (97-110); CREATININE 0.9 mg/dL (0.7-1.3); GLOMERULAR FILTRATION RATE > 60; GLUCOSE 96 mg/dL (70-100); LACTATE DEHYDROGENASE 636 IU/L (313-618); POTASSIUM 4.4 mEq/L (3.5-5.2); SODIUM 138 mEq/L (134-144)
--- NOTE | 2017-06-29 08:35 | CPEKG ---
Heart Rate: 86 RR Interval: 698 P-R Interval: 144 QRSD Interval: 88 QT Interval: 360 QTC Interval: 431 P [place]: 80 QRS [place]: 26 T Wave [place]: 205 EKG Severity - ABNORMAL ECG - EKG Impression: SINUS RHYTHM EKG Impression: LEFT ATRIAL ENLARGEMENT EKG Impression: DIFFUSE ST DEPRESSION, CONSIDER ANTERIOR-LATERAL ISCHEMIA. Electronically Signed By: Javy Walls 29-Jun-2017 11:36:23
[2017-06-29] MEDS: NICOTINE 21 MG/24 HR PATCH TD SCH (08:41)
[2017-06-29] MEDS: FLUTICASONE/SALMETER 250/50MCG DISKUS IH SCH (08:44)
[2017-06-29] MEDS ORDERED: METOPROLOL TARTRATE 25 MG TAB PO SCH (09:00)
[2017-06-29] MEDS ORDERED: TIMOLOL OP SCH ×2 (09:00)
[2017-06-29] MEDS ORDERED: PRASUGREL HCL 10 MG TAB PO SCH (09:00)
[2017-06-29] MEDS ORDERED: ASPIRIN 81 MG CHEWABLE TAB PO SCH (09:00)
[2017-06-29] MEDS ORDERED: ASPIRIN EC 325 MG TAB PO SCH (09:00)
--- NOTE | 2017-06-29 11:58 | ASMTCASEMG ---
Living Arrangements What is your living Answers: Alone arrangement? Who do you live with? Type Of Residence What kind of residence do Answers: Apartment you live in? Discharge Plan Comments Coordination Status Comments Notes: Patient is a 71yo male with a hx of coronary artery disease and stent placement who was admitted for chest pain. Cardiac rehab has been ordered and patient will most likely d/c independently. CM is available for any d/c needs. Date Signed: 06/29/2017 11:57 AM Electronically Signed By:Luli Love LCSW
[2017-06-29 12:41] VITALS: TEMP 97.9; O2SAT 95
--- NOTE | 2017-06-29 13:02 | PCMIDPN ---
Assessment/Plan: Came by as a social visit. Patient did not express any needs. Will provide follow-up to patient's primary care. Planned discharge today Objective: Vital Signs Temp Pulse Resp BP Pulse Ox 36.6 C 72 16 102/59 L 95 06/29/17 12:00 06/29/17 12:00 06/29/17 12:00 06/29/17 12:00 06/29/17 12:00 Laboratory Results 06/29/17 05:30 06/29/17 05:30 06/28/17 06/29/17 06/30/17 05:59 05:59 05:59 Intake Total 1635 Output Total 2300 150 Balance -665 -150 ICD10 Worksheet Patient Problems: Problems Problem Status Onset Angina at rest Acute Chest pain Chronic CAD S/P percutaneous coronary angioplasty Acute S/P CABG x 4 Acute CAD (coronary artery disease) Chronic HIV (human immunodeficiency virus infection) Chronic Hypertension Chronic
[2017-06-29 14:05] VITALS: BP 109/56; PULSE 70; RESP 18
--- NOTE | 2017-06-29 14:12 | PDCARPN ---
Cardiology Progress Note Assessment/Plan: 71 year old male with history of CAD and prior PCI procedures. Because of disease progression, he underwent 4 vessel CABG on 06/08/2017. Presented with recurrent chest discomfort, dyspnea, and nausea. ECG demonstrated precordial ST depression with T-wave inversions. Cardiac catheterization yesterday demonstrated multivessel [place] CAD. The PETIT graft to LAD and SVG to PDA were widely patent. The sequential SVG to OM-3 and OM-1 was patent to the OM-3 but the segment to OM-1 was occluded. He underwent PCI with placement of a single drug coated stent in OM-1. No chest pain today. ECG demonstrates improvement in the previously demonstrated precordial ST segment depression and T-wave inversion. Troponin up to 3.86 this morning. No arrhythmias or evidence of CHF. Has preserved LV systolic function. Recommendations: Check another troponin level at 3 PM today. If trending down, he could be discharged this afternoon. Continue prior home medications with the addition of Effient. Genetic testing for clopidogrel metabolism pending. [facility] staff at [facility] has been instructed to contact the patient to arrange a followup appointment with Dr. Miller. 06/29/17 14:37 Subjective: No complaints. Objective: Vital Signs (8 Hrs) Temp Pulse Resp BP Pulse Ox 06/29/17 14:00 70 18 109/56 L 95 06/29/17 12:00 36.6 C 72 16 102/59 L 95 06/29/17 10:00 75 18 124/60 H 93 06/29/17 08:41 96 129/85 H 06/29/17 07:55 37 C 88 16 141/75 H 96 Intake/Output (24 Hrs) 06/28/17 06/29/17 06/30/17 05:59 05:59 05:59 Intake Total 1635 Output Total 2300 150 Balance -665 -150 Intake: Oral (ml) 700 IV Intake (ml) 400 IV Infused (ml) 535 Ns 1,000 ml @ 100 mls/hr 535 IV CONT ELVIN Rx#: [id number] Output: Urine (ml) 2300 150 Urinal 2300 150 Other: Weight 83.9 kg Number of Voids Urinal 1 Result Diagrams: 06/29/17 05:30 06/29/17 05:30 Cardiac Labs: Cardiac Lab Results (72 Hrs) 06/29/17 09:40 Troponin I 3.860 H - Physical Exam Constitutional: no apparent distress Eyes: anicteric sclera Ears, Nose, Mouth, Throat: moist mucous membranes Cardiovascular: regular rate and rhythm, no murmurs, no rubs, no gallops Respiratory: clear to auscultate bilat Gastrointestinal: normoactive bowel sounds, no tenderness, no masses Skin: no rashes, no edema Neurologic: AAOx3 Psychiatric: not anxious ICD10 Worksheet Patient Problems: Problems Problem Status Onset Angina at rest Acute S/P CABG x 4 Acute CAD S/P percutaneous coronary angioplasty Acute CAD (coronary artery disease) Chronic Chest pain Chronic HIV (human immunodeficiency virus infection) Chronic Hypertension Chronic
--- NOTE | 2017-06-29 15:34 | HOSPPROG ---
Hospitalist Progress Note Assessment/Plan: 71 yo M w HIV and recent CABG here w NSTEMI, OM! stent home today see dc summary > 30 minutes Subjective: trop trending down. d/w dr pruitt Objective: Vital Signs Temp Pulse Resp BP Pulse Ox 36.6 C 70 18 109/56 L 95 06/29/17 12:00 06/29/17 14:00 06/29/17 14:00 06/29/17 14:00 06/29/17 14:00 Laboratory Results 06/29/17 05:30 06/29/17 05:30 06/28/17 06/29/17 06/30/17 05:59 05:59 05:59 Intake Total 1635 Output Total 2300 150 Balance -665 -150 PT 13.8 SEC (12.0-15.0) 06/28/17 05:50 INR 1.07 (0.83-1.16) 06/28/17 05:50 - Physical Exam Constitutional: no apparent distress, appears nourished Eyes: PERRL, anicteric sclera Ears, Nose, Mouth, Throat: moist mucous membranes, hearing normal Cardiovascular: regular rate and rhythym, no murmur, rub, or gallop Respiratory: no respiratory distress, no rales or rhonchi Gastrointestinal: normoactive bowel sounds, soft, non-tender abdomen Genitourinary: no bladder fullness ICD10 Worksheet Patient Problems: Problems Problem Status Onset Angina at rest Acute Chest pain Chronic CAD S/P percutaneous coronary angioplasty Acute S/P CABG x 4 Acute CAD (coronary artery disease) Chronic HIV (human immunodeficiency virus infection) Chronic Hypertension Chronic
--- NOTE | 2017-06-29 16:37 | GDS ---
[f rep st] DISCHARGE SUMMARY DISCHARGE DIAGNOSES: 1. Non ST-elevation myocardial infarction. 2. History of coronary artery disease with recent bypass. 3. Long-standing human immunodeficiency virus with undetectable viral loads, in excellent control. 4. Chronic obstructive pulmonary disease. 5. Tobacco use. HOSPITAL COURSE: Please see admission history and physical by Dr. Ced Muniz. Patient present ed with burning chest pain. He presented where he had an abnormal EKG. Went to the logging rafter laborer, which demonstrated patent grafts. He had a stent placed in his OM1. It was stented with a drug-eluting st ent. He had an intact LV function. His troponin peaked at 3.8, fell to 3.7. He was discharged home on aspirin and Effient and otherwise unchanged regimen. The patient does not have an oxygen require ment or heart failure while here. /[id number]/MODL
[2017-06-29] MEDS ORDERED: EFAVIRENZ 600 MG TAB PO SCH (21:00)
[2017-06-29] MEDS ORDERED: EPZICOM PO SCH (21:00)
[2017-07-01 14:11] LABS: 2C19 DISCLAIMER See Comments; 2C19 INTERPRETATION See Comments; 2C19 METHOD See Comments
== END 2017-06-29 17:11 | disposition home or self-care (01) | DRG 247 ==
LOC: EDUNIT# → F2N 11:26
PROVIDERS: ADMIT Family Medicine; ATTEND Family Medicine
PROC: B2111ZZ Fluoroscopy of Multiple Coronary Arteries using Low Osmolar Contrast (ICD-10-PCS; principal; 2017-06-28)
PROC: B2151ZZ Fluoroscopy of Left Heart using Low Osmolar Contrast (ICD-10-PCS; principal; 2017-06-28)
PROC: 4A023N7 Measurement of Cardiac Sampling and Pressure, Left Heart, Percutaneous Approach (ICD-10-PCS; principal; 2017-06-28)
PROC: 027034Z Dilation of Coronary Artery, One Artery with Drug-eluting Intraluminal Device, Percutaneous Approach (ICD-10-PCS; principal; 2017-06-28)
PROC: B2131ZZ Fluoroscopy of Multiple Coronary Artery Bypass Grafts using Low Osmolar Contrast (ICD-10-PCS; principal; 2017-06-28)
DX: I21.4 Non-ST elevation (NSTEMI) myocardial infarction (principal); I25.10 Atherosclerotic heart disease of native coronary artery without angina pectoris; E78.5 Hyperlipidemia, unspecified; J44.9 Chronic obstructive pulmonary disease, unspecified; G47.33 Obstructive sleep apnea (adult) (pediatric); R73.03 Prediabetes; F17.210 Nicotine dependence, cigarettes, uncomplicated; Z87.442 Personal history of urinary calculi; Z21 Asymptomatic human immunodeficiency virus [HIV] infection status; Z95.1 Presence of aortocoronary bypass graft; Z95.5 Presence of coronary angioplasty implant and graft
CPT/HCPCS: 81225-90; 96365; C1725; C1760; C1769; C1874; C1887; C9600; J0583; J1644; J2250; J3010; Q9967

== ENCOUNTER 2017-08-15 10:00 | Emergency (ER) | payer OTHER ==
[2017-08-15] MEDS ORDERED: NS 1,000 ML IV ONE (10:21)
[2017-08-15 10:31] LABS: PLATELET COUNT 309 10^3/uL (150-400)
--- NOTE | 2017-08-15 13:01 | EDPHY ---
H & P Stated Complaint: Sent by PCP for eval "dehydration" Time Seen by Provider: 08/15/17 10:07 HPI/ROS: CHIEF COMPLAINT: Dehydrated after severe vomiting and diarrhea HISTORY OF PRESENT ILLNESS: The patient has a history of HIV with a normal recent CD4 count who presents to the ED after he has developed decreased urination and malaise following a several day history of vomiting and diarrhea. The patient has not vomited in several days. The patient also has not experienced diarrhea he has had a difficult time getting rehydrated. The patient reported some scant urine output earlier today. The patient followed up with his primary care provider who referred him to the ED for IV fluid rehydration. The patient denies any acute abdominal pain. He denies dysuria or additional acute complaints. REVIEW OF SYSTEMS: A comprehensive 10 point review of systems is otherwise negative aside from elements mentioned in the history of present illness. Source: Patient Exam Limitations: No limitations - Personal History Current Tetanus Diphtheria and Acellular Pertussis (TDAP): Yes Tetanus Vaccine Date: 2010 - Medical/Surgical History Hx Asthma: No Hx Chronic Respiratory Disease: No Hx Diabetes: No Hx Cardiac Disease: Yes Hx Renal Disease: No Hx Cirrhosis: No Hx Alcoholism: No Hx HIV/AIDS: Yes Hx Splenectomy or Spleen Trauma: No Other PMH: PRE-DIABETIC; cardiac stent; kidney stones; hernia repair, appy, T&A ; Angela; cervical spine sx x3; tonselectomy, HIV+; COPD; AAA; HTN; SULAIMAN; PVD with stent in SFA - Social History Smoking Status: Heavy smoker - Physical Exam Exam: General Appearance: Alert, no distress, appears fatigued Eyes: Pupils equal and round no pallor or injection ENT, Mouth: Dry mucous membranes Respiratory: There are no retractions, lungs are clear to auscultation Cardiovascular: Regular rate and rhythm Gastrointestinal: Abdomen is soft and nontender, no masses, bowel sounds normal Neurological: A&O, normal motor function, normal sensory exam, normal cranial nerves Skin: Warm and dry, no rashes Musculoskeletal: Neck is supple nontender Extremities: symmetrical, full range of motion Psychiatric: Patient is oriented X 3, there is no agitation Constitutional: Initial Vital Signs Temperature (C) 36.7 C 08/15/17 10:06 Heart Rate 73 08/15/17 10:06 Respiratory Rate 16 08/15/17 10:06 Blood Pressure 119/79 08/15/17 10:06 O2 Sat (%) 99 08/15/17 10:06 Allergies/Adverse Reactions: Pzisiqe-Fqu-Nmt Reductase Inhibitor Allergy (Severe, Verified 08/15/17 10:05) THIGH CRAMPING Home Medications: Medication Instructions Recorded Abacavir Sulfate/Lamivudine 1 each PO HS 04/09/14 [Epzicom Tablet] Efavirenz [Sustiva] 600 mg PO HS 04/09/14 PARoxetine HCL [Paxil 30mg (*)] 30 mg PO DAILY 04/09/14 traZODone [traZODONE 50MG (*)] 50 mg PO HS #30 tab 01/16/15 Testosterone Cyp 100 mg IM Q14D 01/28/16 [Depo-Testosterone 100mg/ml inj (*)] Timolol [Betimol] 1 drop OP DAILY 05/27/17 Aspirin [Aspirin 81mg (*)] 81 mg PO DAILY tab.chew 06/13/17 celeCOXIB [Celebrex (*)] 200 mg PO DAILY 06/28/17 Prasugrel HCl [Effient 10mg (*)] 10 mg PO DAILY #30 tab 06/29/17 Nebivolol HCl [Bystolic 5 mg (*)] 5 mg PO DAILY 08/15/17 [place] 08/15/17 Medical Decision Making ED Course/Re-evaluation: The patient presents to the ED with dehydration in the setting of a recent gastrointestinal illness. The patient had an IV established. He received 2 L of normal saline and 4 mg of IV Zofran. Screening laboratory studies demonstrated no evidence of acute renal failure, significant leukocytosis or metabolic derangement. The patient received serial examinations in the ED over a 2.5 hr period. I re- evaluated the patient at 1:00 p.m. and he is currently feeling much better. His abdominal examination is benign and he is tolerating p.o. fluids without recurrent vomiting or diarrhea. The patient will be discharged home with instructions to return to the ED for any worsening symptoms or other concerns. He is given a prescription for Zofran for any recurrent nausea. Differential Diagnosis: Differential diagnosis considered includes gastroenteritis, dehydration, metabolic abnormality, renal failure - Data Points Laboratory Results: Laboratory Results 08/15/17 10:22 08/15/17 10:22 08/15/17 08/15/17 10:22 10:22 WBC 7.22 10^3/uL 10^3/uL (3.80-9.50) RBC 4.68 10^6/uL 10^6/uL (4.40-6.38) Hgb 12.8 g/dL L g/dL (13.7-17.5) Hct 40.8 % % (40.0-51.0) MCV 87.2 fL fL (81.5-99.8) MCH 27.4 pg L pg (27.9-34.1) MCHC 31.4 g/dL L g/dL (32.4-36.7) RDW 15.0 % % (11.5-15.2) Plt Count 309 10^3/uL 10^3/uL (150-400) MPV 9.3 fL fL (8.7-11.7) Neut % (Auto) 62.3 % % (39.3-74.2) Lymph % (Auto) 23.5 % % (15.0-45.0) [place] % (Auto) 9.1 % % (4.5-13.0) Eos % (Auto) 4.3 % % (0.6-7.6) Baso % (Auto) 0.4 % % (0.3-1.7) Nucleat RBC Rel Count 0.0 % % (0.0-0.2) Absolute Neuts (auto) 4.49 10^3/uL 10^3/uL (1.70-6.50) Absolute Lymphs (auto) 1.70 10^3/uL 10^3/uL (1.00-3.00) Absolute Monos (auto) 0.66 10^3/uL 10^3/uL (0.30-0.80) Absolute Eos (auto) 0.31 10^3/uL 10^3/uL (0.03-0.40) Absolute Basos (auto) 0.03 10^3/uL 10^3/uL (0.02-0.10) Absolute Nucleated RBC 0.00 10^3/uL 10^3/uL (0-0.01) Immature Gran % 0.4 % % (0.0-1.1) Immature Gran # 0.03 10^3/uL 10^3/uL (0.00-0.10) Sodium 145 mEq/L H mEq/L (134-144) Potassium 3.5 mEq/L mEq/L (3.5-5.2) Chloride 106 mEq/L mEq/L (97-110) Carbon Dioxide 22 mEq/l mEq/l (22-31) Anion Gap 17 mEq/L H mEq/L (8-16) BUN 24 mg/dL H mg/dL (7-23) Creatinine 1.3 mg/dL mg/dL (0.7-1.3) Estimated GFR 55 Glucose 124 mg/dL H mg/dL (70-100) Calcium 9.4 mg/dL mg/dL (8.5-10.4) Total Bilirubin 0.2 mg/dL mg/dL (0.1-1.4) Conjugated Bilirubin 0.2 mg/dL mg/dL (0.0-0.5) Unconjugated Bilirubin 0.0 mg/dL mg/dL (0.0-1.1) AST 24 IU/L IU/L (17-59) ALT 39 IU/L IU/L (21-72) Alkaline Phosphatase 112 IU/L IU/L (38-126) Total Protein 7.3 g/dL g/dL (6.3-8.2) Albumin 4.3 g/dL g/dL (3.5-5.0) Lipase 394 IU/L H IU/L (23-300) Medications Given: Discontinued Medications Sodium Chloride (Ns) 1,000 mls @ 0 mls/hr IV EDNOW ONE; Wide Open PRN Reason: Protocol Stop: 08/15/17 10:22 Last Admin: 08/15/17 10:28 Dose: 1,000 mls Departure - Departure Disposition: Home, Routine, Self-Care Clinical Impression: Gastroenteritis, Dehydration Condition: Good Instructions: Dehydration (ED) Additional Instructions: 1. Zofran as needed for any recurrent nausea. 2. Please follow up with your primary care provider as needed. 3. Imodium as needed for recurrent diarrhea. Referrals: Kiarra Dougherty NP [Primary Care Provider] - As per Instructions
[2017-08-15 13:20] VITALS: BP 112/87; PULSE 74; RESP 18; TEMP 97.7; O2SAT 95
== END 2017-08-15 12:40 | disposition home or self-care (01) ==
DX: K52.9 Noninfective gastroenteritis and colitis, unspecified (principal); E86.0 Dehydration; B20 Human immunodeficiency virus [HIV] disease; J44.9 Chronic obstructive pulmonary disease, unspecified; I10 Essential (primary) hypertension; F17.200 Nicotine dependence, unspecified, uncomplicated; E86.9 Volume depletion, unspecified; Z79.82 Long term (current) use of aspirin; Z95.5 Presence of coronary angioplasty implant and graft

== ENCOUNTER → 2017-10-15 | Outpatient (CLI) | payer OTHER | LOC: FIMAGING 10:27 | PROVIDERS: ATTEND Physical Medicine & Rehabilitation | DX: M51.25 Other intervertebral disc displacement, thoracolumbar region (principal); M51.26 Other intervertebral disc displacement, lumbar region ==

== ENCOUNTER → 2017-11-04 | Outpatient (CLI) | payer OTHER ==
[~2017-11-04] MED LIST changes: -ADENOSINE 6 MG/2 ML VIAL ONE; -ALBUMIN 5% 250 ML BOTTLE IV ONE; -AMINOCAPROIC ACID 5 GM/20 ML VIAL IV ONE; -AMINOCAPROIC ACID 5 GM/20 ML VIAL ONE; -AMIODARONE HCL 150 MG/3 ML VIAL ONE; -CALCIUM CHLORIDE 1 GM/10 ML INJ ONE; -CITRATE DEXTROSE SOLN 500 ML BAG MISC ONE; -CITRATE DEXTROSE SOLN 500 ML BAG ONE; -DOPamine/DEXTROSE/250 ML BAG IV ONE; -HEPARIN 10,000 UNIT/10 ML MDV ONE; -INSULIN REGULAR HUMAN 100 UNIT in NS 100 ML IV ONE; +IOPAMIDOL (ISOVUE-370) 150 ML BTL IV ONE; -LIDOCAINE 2% 100 MG/5 ML SYR ONE; -MAGNESIUM SULFATE 1 GM/2 ML VIAL ONE; -MANNITOL 25% 12.5 GM/50 ML VIAL IVP ONE; -MILRINONE/DEXTROSE/100 ML BAG IV ONE; -MUPIROCIN 2% 22 GM OINT NS ONE; -NA BICARBONATE 50 MEQ/50 ML VIAL ONE; -NOREPINEPHRINE BITARTRATE 16 MG in NS 250 ML IV ONE; -PHENYLEPHRINE HCL 50 MG in NS 250 ML IV ONE; -POTASSIUM Cl (KCl) 20 MEQ/50 ML BAG IV ONE; -PROTAMINE SULFATE 50 MG/5 ML VIAL IVP ONE; -SODIUM BICARBONATE 20 MEQ, LIDOCAINE 1% 10 ML in NORMOSOL-R 1,000 ML MISC ONE; -VERAPAMIL 5 MG, NITROGLYCERIN 2.5 MG, HEPARIN 500 UNIT, SODIUM BICARBONATE 0.2 MEQ in L... MISC ONE; -ceFAZolin 1 GM VIAL ONE; -ceFAZolin 2 GM/SWFI 2 GM/20 ML SYR IVP ONE; -methylPREDNISolone SOD SUCC 1 GM/8 ML VIAL ONE; -niCARdipine/NACL 200 ML IV SCH; -niCARdipine/NACL/200 ML BAG IV ONE
== END ==
LOC: FIMAGING 08:59
PROVIDERS: ATTEND Nurse Practitioner
DX: K55.1 Chronic vascular disorders of intestine (principal); I71.4 Abdominal aortic aneurysm, without rupture; I70.203 Unspecified atherosclerosis of native arteries of extremities, bilateral legs; K57.90 Diverticulosis of intestine, part unspecified, without perforation or abscess without bleeding; R05 Cough; R91.1 Solitary pulmonary nodule
CPT/HCPCS: 71250; 75635; Q9967

== ENCOUNTER 2017-12-12 09:17 | Day surgery (SDC) | payer OTHER ==
[2017-12-12] MEDS ORDERED: FAMOTIDINE 20 MG TAB PO ONE (09:18)
[2017-12-12] MEDS ORDERED: ASPIRIN EC 325 MG TAB PO ONE ×2 (09:18→09:39)
[2017-12-12] MEDS ORDERED: NS 1,000 ML IV ONE (09:18)
[2017-12-12] MEDS ORDERED: DIAZEPAM 5 MG TAB PO ONE (09:18)
[2017-12-12] MEDS ORDERED: diphenhydrAMINE 25 MG CAP PO ONE ×2 (09:18→09:38)
--- NOTE | 2017-12-12 09:37 | CPEKG ---
Heart Rate: 79 RR Interval: 759 P-R Interval: 156 QRSD Interval: 92 QT Interval: 396 QTC Interval: 455 P [place]: 74 QRS [place]: -3 T Wave [place]: 91 EKG Severity - ABNORMAL ECG - EKG Impression: SINUS RHYTHM EKG Impression: LOW VOLTAGE IN FRONTAL LEADS EKG Impression: NONSPECIFIC REPOL ABNORMALITY, DIFFUSE LEADS Electronically Signed By: Josef Stovall 12-Dec-2017 12:40:22
[2017-12-12] MEDS ORDERED: FAMOTIDINE 20 MG TAB ONE (09:39)
[2017-12-12] MEDS ORDERED: DIAZEPAM 5 MG TAB ONE (09:39)
[2017-12-12 10:01] LABS: PLATELET COUNT 272 10^3/uL (150-400)
[2017-12-12 10:08] LABS: INR 0.98 (0.83-1.16); PROTIME(PATIENT) 13.2 SEC (12.0-15.0)
[2017-12-12] MEDS ORDERED: LIDOCAINE 1% 300 MG/30 ML SDV ONE (10:50)
[2017-12-12] MEDS ORDERED: fentaNYL 100 MCG/2 ML INJ ONE (10:50)
[2017-12-12] MEDS ORDERED: MIDAZOLAM 2 MG/2 ML VIAL ONE (10:51)
[2017-12-12] MEDS ORDERED: IOPAMIDOL (ISOVUE-370) 150 ML BTL IV ONE (10:51)
[2017-12-12] MEDS ORDERED: IOPAMIDOL (ISOVUE-300) 150 ML BTL ONE ×2 (10:52→11:38)
[2017-12-12] MEDS ORDERED: HEPARIN 10,000 UNIT/10 ML MDV (1,000 UNIT/ML) ONE (11:00)
[2017-12-12] MEDS ORDERED: HYDROCODONE/APAP 5/325 TAB PO PRN (14:22)
[2017-12-12] MEDS ORDERED: OXYCODONE/APAP 5/325 TAB PO PRN (14:22)
[2017-12-12] MEDS ORDERED: NITROGLYCERIN 0.4 MG BTL SL PRN (14:22)
[2017-12-12] MEDS ORDERED: ONDANSETRON 4 MG/2 ML VIAL IVP PRN (14:22)
[2017-12-12] MEDS ORDERED: ATROPINE SULFATE 1 MG/10 ML SYR IVP PRN (14:22)
[2017-12-12 14:49] VITALS: BP 135/79
--- NOTE | 2017-12-12 17:31 | CPIP ---
[f rep st] INVASIVE CARDIAC PROCEDURE DATE OF PROCEDURE: 12/12/2017 PROCEDURES PERFORMED: 1. Abdominal aortography. 2. Left lower extremity angiography via contralateral approach with catheter placed in the left exte rnal iliac artery. 3. Right lower extremity angiography via ipsilateral approach with catheter placed in the right comm on iliac artery. INDICATION: 1. Known peripheral vascular disease status post stenting of left superficial femoral artery. 2. Bilateral calf pain in intermittent upper thigh pain and weakness. ACCESS: Patient was prepped and draped in the sterile fashion. 1% lidocaine was used to anesthetize the right inguinal region. A 6-[place] Citizen introducer sheath was placed selectively into the right commo n femoral artery via modified Seldinger technique. ABDOMINAL AORTOGRAPHY: A 6-[place] Citizen pigtail catheter was placed in the distal abdominal aorta and posi tion verified by angiography. Images were obtained via power injection through the Smarty Ring system. T he patient had a single right renal artery and a single left renal artery. Both renal arteries were free of any significant disease. Below the right renal artery, there was an ulcerated plaque present . In the distal abdominal aorta prior to the bifurcation, there was aneurysmal dilation present. Th e distal abdominal aorta then bifurcated into the right and left common iliac arteries. The left low er extremity angiography via contralateral approach with catheter placed in the left external iliac a rtery. A 5-[place] Citizen Contra 2 catheter was placed in the distal abdominal aorta and reformed into its u sual position. This catheter was used to selectively engage the left common iliac artery. The left common iliac artery bifurcated into the internal iliac artery and external iliac arteries. The left common iliac artery had a proximal 20% stenosis present. The remainder of the vessel is free of any significant disease. The right internal iliac artery was free of any significant disease. The right external iliac artery appeared normal. An angled Glidewire was then placed down into the left commo n femoral artery and the Contra 2 catheter was exchanged for a straight flush catheter. The straight flush catheter was placed in the left external iliac artery and imaging of the lower extremity was o btained via hand injection. The left external iliac artery turned into the left common femoral arter y. The left common femoral artery then bifurcated into the superficial femoral artery and profunda f emoral arteries. The left external iliac artery appeared free of any significant disease. The left common femoral artery appeared free of any significant disease. The left profunda femoral artery claire eared free of any significant disease. The left superficial femoral artery had mild luminal irregula rities in the proximal segment. These irregularities approached 20% in severity. In the distal port ion of the vessel, a previously placed stent could be seen. The previously placed stent is widely pa tent with mild in-stent restenosis. The left superficial femoral artery then turned into the poplite al artery prior to trifurcating below the knee. The popliteal artery had a single discrete 50% steno sis in the proximal segment. Below the knee there is 3 vessel runoff without any significant stenosi s. Right lower extremity angiography via ipsilateral approach with catheter placed in the right comm on iliac artery. The straight flush catheter was withdrawn into the right common iliac artery and im ages obtained. The right common iliac artery bifurcated into the internal iliac artery and external iliac arteries. The right common iliac artery, the proximal segment was aneurysmal. The remainder o f the vessel is free of any significant disease. The right internal iliac artery had a 60% stenosis present. The right external iliac artery appeared normal. The right external iliac artery then turn ed into the common femoral artery. The common femoral artery appeared normal. The common femoral ar aguila then bifurcated into the superficial femoral artery and profunda femoral arteries. The profunda femoral artery is free of any significant disease. The right superficial femoral artery had mild jeffrey laxmi irregularities in the proximal mid segment. There was no stenosis greater than 20%. In the di stal segment, there was a single discrete 70% stenosis present. The left superficial femoral artery then turns into the popliteal artery. The popliteal artery had a single discrete 50% stenosis presen t. Below the knee there was 3 vessel runoff without any significant disease present. COMPLICATIONS: None. CONCLUSIONS: 1. 70% distal right superficial femoral artery stenosis. 2. 50% left popliteal artery stenosis. 3. Plan is for medical management. /[id number]/MODL
== END 2017-12-12 15:14 | disposition home or self-care (01) ==
LOC: FCATH 09:17
PROVIDERS: ATTEND Internal Medicine Cardiovascular Disease
PROC: B40DYZZ Plain Radiography of Aorta and Bilateral Lower Extremity Arteries using Other Contrast (ICD-10-PCS; principal; 2017-12-12)
DX: I77.1 Stricture of artery (principal); I73.9 Peripheral vascular disease, unspecified; I25.10 Atherosclerotic heart disease of native coronary artery without angina pectoris; E78.5 Hyperlipidemia, unspecified; Z72.0 Tobacco use; B20 Human immunodeficiency virus [HIV] disease; Z95.820 Peripheral vascular angioplasty status with implants and grafts
CPT/HCPCS: 36246; 75625; 75716; 93005; C1769; C1760; J1644; J2250; J3010; Q9967

== ENCOUNTER 2017-12-21 16:25 | Inpatient (IN) | payer OTHER ==
[2017-12-21] MEDS ORDERED: NS 1,000 ML IV ONE (16:45)
[2017-12-21] MEDS ORDERED: ONDANSETRON 4 MG/2 ML VIAL IVP ONE (16:45)
--- NOTE | 2017-12-21 16:54 | EDPHY ---
H & P Time Seen by Provider: 12/21/17 16:33 HPI/ROS: HPI Kidney stone pain. 72-year-old male by private vehicle. He complains of left flank pain with radiation into the left lower quadrant of his abdomen since 1:00 a.m. this morning. He has had associated nausea but no vomiting. He reports some hematuria last night as well. He reports this is typical of his kidney stone pain. He has had 5 previous episodes of kidney stones. He reports that the only thing that works for his pain is a combination of Valium and morphine. ROS: Constitutional: No fever, no chills. No weakness. Eyes: No discharge. No changes in vision. ENT: No sore throat. No nasal congestion or rhinorrhea. Respiratory: No cough. No shortness of breath. Cardiac: No chest pain, no palpitations. Gastrointestinal: As above, no vomiting, no diarrhea. Genitourinary: As above. No dysuria or increased frequency with urination. Musculoskeletal: As above. No neck pain. No myalgias or arthralgias. Skin: No rashes. Neurological: No headache. No focal weakness or altered sensation. Past medical history: Coronary artery disease with cardiac stents, kidney stones, hernia repair, appendectomy, cholecystectomy, cervical spine surgery x3 , tonsillectomy, HIV positive, COPD, hypertension, AAA, osteoarthritis. Social history: Nonsmoker. Here by himself. Denies alcohol. Physical Exam: General Appearance: Alert, uncomfortable but not in distress. This patient is responding to questions appropriately and in full sentences. This patient appears well-hydrated and well-nourished. Eyes: Pupils equal and round no pallor or injection. No lid edema, erythema or injection. Respiratory: There are no retractions, lungs are clear to auscultation with good air movement bilaterally. Cardiovascular: Regular rate and rhythm. No murmur. Gastrointestinal: Abdomen is soft and nontender, no masses, bowel sounds normal. No focal tenderness at McBurney's point. No Epps sign. Neurological: Motor sensory function is grossly intact. Cranial nerves are normal. Gait is normal. Skin: Warm and dry, no rashes. Musculoskeletal: Neck is supple and nontender. Vague left-sided CVA tenderness on palpation. No right-sided CVA tenderness on palpation. Extremities are symmetrical. All joints range without pain or impingement. Psychiatric: No agitation. No depression. Database: EKG: Imaging: CT abdomen and pelvis without contrast: Significant for mild to moderate left- sided hydronephrosis. Ureterolithiasis L4 level of the left ureter 6.5 mm cephalad to caudad. Other chronic findings. Results discussed with staff radiologist Dr. Edgardo Herrera. Please see his report for further details. Procedures: Emergency department course: Vital signs reviewed. He is moderately hypertensive. Vital signs otherwise normal. He consents to CT imaging to evaluate for a kidney stone. IV was placed. He was started on IV normal saline with 500 cc to 1 L to be given over the next hour. He will be initially given 6 mg of IV morphine and 4 mg of IV Zofran. This will be repeated as needed for pain. He states that he has no contraindications to NSAIDs. Toradol will be considered as well. 6:10 p.m., patient re-evaluated. More comfortable after above medications. I discussed the results of his CT with him and his blood work. His creatinine has jumped to 2.0 from 1.4 at baseline. This is likely a pre renal azotemia. I do not think he will do well at home considering the size of the stone and the level of his pain when he got here. Hospitalist paged for admission. 6:15 p.m., case discussed with hospitalist, Dr. Radha Alonso. Patient accepted for admission to the hospitalist service. His remaining emergency department course under my care has been uneventful. He was admitted to the hospitalist service in stable condition. 6:30 p.m., spoke with Urology, Dr. Calvin will see patient on the floor. Differential Diagnosis: The differential diagnosis on this patient includes but is not limited to kidney stone. Diverticulitis, volvulus, pyelonephritis unlikely. This represents a partial list of diagnoses considered. These considerations are based on history, physical exam, past history, reassessment and diagnostic testing. Smoking Status: Heavy smoker Constitutional: Initial Vital Signs Temperature (C) 36.7 C 12/21/17 16:28 Heart Rate 76 12/21/17 16:28 Respiratory Rate 18 12/21/17 16:28 Blood Pressure 166/98 H 12/21/17 16:28 O2 Sat (%) 95 12/21/17 16:28 O2 Delivery Mode Nasal Cannula O2 (L/minute) 2 Allergies/Adverse Reactions: [id number] Reductase Inhibitor Allergy (Severe, Verified 12/21/17 16:26) THIGH CRAMPING Home Medications: Medication Instructions Recorded traZODone [traZODONE 50MG (*)] 50 mg PO HS #30 tab 01/16/15 Aspirin [Aspirin 81mg (*)] 81 mg PO DAILY tab.chew 06/13/17 celeCOXIB [Celebrex (*)] 200 mg PO HS 06/28/17 Prasugrel HCl [Effient 10mg (*)] 10 mg PO DAILY #30 tab 06/29/17 Emtricitabine/Tenofov Alafenam 1 each PO HS 08/15/17 [Descovy 200-25 mg Tablet] Nebivolol HCl [Bystolic 5 mg (*)] 5 mg PO HS 08/15/17 Cholecalciferol Vit D3 [Vitamin D3 2,000 units PO DAILY 12/12/17 2000 units tab (OTC)] Cyanocobalamin [Vitamin B12 (*)] 1,000 mcg PO DAILY 12/12/17 Dolutegravir Sodium [Tivicay] 50 mg PO HS 12/12/17 Evolocumab [Repatha Syringe] 140 mg SC Q14D@09 12/12/17 Herbals/Supplements -Info Only 1 ea PO DAILY 12/12/17 Melatonin/Pyridoxine HCl (B6) 1 each PO HS 12/12/17 [Melatonin 10 mg Tablet] PARoxetine HCL [Paroxetine HCl] 40 mg PO DAILY 12/12/17 Medical Decision Making - Diagnostics Imaging Results: Imaging Impressions Abdomen/Pelvis CT 12/21/17 16:49 Impression: Mild/moderate left hydroureteronephrosis secondary to a 6.5 mm stone in the lumbar portion of the left ureter at the L4 level. Attention: This CT examination is specifically designed to evaluate patients who are clinically suspected of having acute obstructive uropathy. This examination does not use radiographic contrast, and as such, provides only a limited evaluation of the abdomen, pelvis, and retroperitoneum. If there is further clinical suspicion for pathological conditions other than obstructive uropathy, a complete CT evaluation of the abdomen and pelvis utilizing intravenous, oral, and rectal contrast should be considered. Findings were discussed with Sheldon Milner MD at 17:52, on 12/21/2017. - Data Points Laboratory Results: Laboratory Results 12/21/17 16:42 12/21/17 16:42 12/21/17 12/21/17 12/21/17 17:30 16:42 16:42 WBC 9.23 10^3/uL 10^3/uL (3.80-9.50) RBC 5.10 10^6/uL 10^6/uL (4.40-6.38) Hgb 13.5 g/dL L g/dL (13.7-17.5) Hct 42.6 % % (40.0-51.0) MCV 83.5 fL fL (81.5-99.8) MCH 26.5 pg L pg (27.9-34.1) MCHC 31.7 g/dL L g/dL (32.4-36.7) RDW 18.6 % H % (11.5-15.2) Plt Count 297 10^3/uL 10^3/uL (150-400) MPV 9.2 fL fL (8.7-11.7) Neut % (Auto) 69.4 % % (39.3-74.2) Lymph % (Auto) 18.4 % % (15.0-45.0) [place] % (Auto) 8.8 % % (4.5-13.0) Eos % (Auto) 2.3 % % (0.6-7.6) Baso % (Auto) 0.7 % % (0.3-1.7) Nucleat RBC Rel Count 0.0 % % (0.0-0.2) Absolute Neuts (auto) 6.41 10^3/uL 10^3/uL (1.70-6.50) Absolute Lymphs (auto) 1.70 10^3/uL 10^3/uL (1.00-3.00) Absolute Monos (auto) 0.81 10^3/uL H 10^3/uL (0.30-0.80) Absolute Eos (auto) 0.21 10^3/uL 10^3/uL (0.03-0.40) Absolute Basos (auto) 0.06 10^3/uL 10^3/uL (0.02-0.10) Absolute Nucleated RBC 0.00 10^3/uL 10^3/uL (0-0.01) Immature Gran % 0.4 % % (0.0-1.1) Immature Gran # 0.04 10^3/uL 10^3/uL (0.00-0.10) Sodium 141 mEq/L mEq/L (135-145) Potassium 4.7 mEq/L mEq/L (3.3-5.0) Chloride 103 mEq/L mEq/L (97-110) Carbon Dioxide 20 mEq/l L mEq/l (22-31) Anion Gap 18 mEq/L H mEq/L (8-16) BUN 25 mg/dL H mg/dL (7-23) Creatinine 2.0 mg/dL H mg/dL (0.7-1.3) Estimated GFR 33 Glucose 105 mg/dL H mg/dL (70-100) Calcium 9.6 mg/dL mg/dL (8.5-10.4) Urine Color YELLOW Urine Appearance HAZY Urine pH 5.0 (5.0-7.5) Ur Specific [place] 1.017 (1.002-1.030) Urine Protein 1+ H (NEGATIVE) Urine Ketones NEGATIVE (NEGATIVE) Urine Blood 3+ H (NEGATIVE) Urine Nitrate NEGATIVE (NEGATIVE) Urine Bilirubin NEGATIVE (NEGATIVE) Urine Urobilinogen NEGATIVE EU EU (0.2-1.0) Ur Leukocyte Esterase NEGATIVE (NEGATIVE) Urine RBC 50-182 /hpf H /hpf (0-3) Urine WBC 5-10 /hpf H /hpf (0-3) Ur Epithelial Cells NONE SEEN /lpf /lpf (NONE-1+) Urine Glucose NEGATIVE (NEGATIVE) Medications Given: Discontinued Medications Sodium Chloride (Ns) 1,000 mls @ 0 mls/hr IV EDNOW ONE; Wide Open PRN Reason: Protocol Stop: 12/21/17 16:46 Last Admin: 12/21/17 17:26 Dose: 1,000 mls Morphine Sulfate (Morphine) 6 mg IVP EDNOW ONE Stop: 12/21/17 16:46 Last Admin: 12/21/17 17:23 Dose: 6 mg Ondansetron HCl (Zofran) 4 mg IVP EDNOW ONE Stop: 12/21/17 16:46 Last Admin: 12/21/17 17:23 Dose: 4 mg Tamsulosin HCl (Flomax) 0.4 mg PO EDNOW ONE Stop: 12/21/17 18:24 Last Admin: 12/21/17 18:49 Dose: 0.4 mg Departure - Departure Disposition: Home, Routine, Self-Care Clinical Impression: Renal colic on left side, Ureterolithiasis, Renal insufficiency
[2017-12-21 17:14] LABS: PLATELET COUNT 297 10^3/uL (150-400)
[2017-12-21] MEDS ORDERED: TAMSULOSIN HCL 0.4 MG CAP PO ONE (18:23)
[2017-12-21] MEDS ORDERED: traMADol 50 MG TAB PO PRN (20:36)
[2017-12-21] MEDS ORDERED: ONDANSETRON 4 MG/2 ML VIAL IVP PRN (20:36)
[2017-12-21] MEDS ORDERED: ACETAMINOPHEN 325 MG TAB PO PRN (20:36)
[2017-12-21] MEDS ORDERED: PROMETHAZINE HCL 25 MG/ML INJ IVP PRN (20:36)
[2017-12-21] MEDS ORDERED: HYDROmorphONE/DILAUDID 1 MG/ML INJ IVP PRN (20:36)
[2017-12-21] MEDS ORDERED: NS 1,000 ML IV SCH (20:45)
[2017-12-21] MEDS ORDERED: NON-FORMULARY NEW DRUG (Emtricitabine/Tenofov Alafenam [Descovy 200-25 Mg Tablet] 1 EACH) PO SCH (21:00)
[2017-12-21] MEDS ORDERED: NON-FORMULARY NEW DRUG (Dolutegravir Sodium [Tivicay] 50 MG) PO SCH (21:00)
[2017-12-21] MEDS ORDERED: MELATONIN PO SCH (21:00)
[2017-12-21] MEDS ORDERED: PYRIDOXINE HCL PO SCH (21:00)
[2017-12-21] MEDS ORDERED: HYDROmorphONE/DILAUDID 1 MG/ML INJ ONE (21:11)
[2017-12-21] MEDS: NEBIVOLOL HCL 5 MG TAB PO SCH ×2 (21:19→21:29)
[2017-12-21] MEDS: MELATONIN 3 MG TAB PO SCH (21:29)
[2017-12-21] MEDS: traZODone 50 MG TAB PO SCH (21:29)
--- NOTE | 2017-12-21 21:39 | GHP ---
[f rep st] HISTORY AND PHYSICAL DATE OF ADMISSION: 12/21/2017 CHIEF COMPLAINT: Flank pain. HISTORY: Silverio is a 72-year-old male who developed acute onset of severe left flank pain at 1 o'kayy ck this morning that awoke him from sleep. He did have some new onset hematuria the night before. H e denies any fever. Pain is severe requiring IV morphine in the emergency room. He has been diagnos ed with a 6.5 mm stone on that side. There is some hydronephrosis. The patient has actually been having a decline over the last couple of months with severe fatigue and progressively worse time walking. He says he gets severe leg pain when he stands, feeling a below t he knee tightness, severe loss of balance, trouble walking. He had angiogram with Dr. Miller to rule out peripheral vascular disease as a cause, and although he did have some stenosis, the plan is medi jose management. He had a lumbar spine MRI that was unremarkable. Most recently, he saw Dr. Garcia of Neurology and has an EMG scheduled with him later this week. Patient also has some had a persistent upper respiratory tract infection for the last couple weeks. He caught it from his grandchildren whom he baby-sits sometimes. The grandchildren quickly cleared t he infection, but he is persisting with cough and upper respiratory symptoms. PAST MEDICAL HISTORY: 1. Peripheral vascular disease status post previous stents the lower extremity. Most recent angiogr am by Dr. Miller December 12, 2017, showing stenoses but not enough for repeat stenting. 2. A 2.4 cm infrarenal abdominal aortic aneurysm. 3. Coronary artery disease, status post stent and CABG. 4. Diabetes type 2. 5. Mild emphysema. 6. HIV diagnosed 2007 with an undetectable viral load for the last 10 years. 7. Hyperlipidemia. 8. Microscopic colitis. 9. Peripheral neuropathy. 10. Seizure disorder. 11. Obstructive sleep apnea. 12. Kidney stones x5. PAST SURGICAL HISTORY: 1. Cholecystectomy. 2. Appendectomy. 3. Cervical fusion. MEDICATIONS: Please see computer record for full detailed list. ALLERGIES: STATINS. SOCIAL HISTORY: Continues to smoke. No alcohol. He lives alone. REVIEW OF SYSTEMS: Complete review of systems obtained. Review of systems negative. Regarding cons titutional, HEENT, GI, pulmonary vascular , hematology, skin, muscular, endocrine, psych except for positives as in HPI. FAMILY HISTORY: Reviewed, noncontributory to presenting complaint. PHYSICAL EXAMINATION: GENERAL: Well-developed, well-nourished male, in no distress. VITAL SIGNS: Temperature 36.7, pulse 83, blood pressure 160/89, saturating 95% on room air. HEENT: Eye examinati on normal conjunctivae, pupils react to light. ENT normal ears, nose. Hearing intact. Normal lips, teeth, oropharynx, moist. NECK: Trachea midline. No thyromegaly. CHEST: Normal effort. LUNGS: Some bilateral wheezing and rhonchi. CARDIOVASCULAR: Regular rhythm. No murmur. No lower extremi ty edema. ABDOMEN: Soft, nontender. No hepatosplenomegaly. SKIN: Warm, dry, intact. No rash. M USCULOSKELETAL: No cyanosis or clubbing. Strength 5/5 upper and lower extremities. NEURO: Cranial nerves intact. Normal sensation light touch. PSYCHIATRIC: Alert and oriented x3. Normal mood and affect. Normal judgment. Normal memory. LABORATORY DATA: White count 9.23, hematocrit 42.6, platelets 297. Sodium 141, potassium 4.7, chlor de 103, bicarb 20, BUN 25, creatinine 2, glucose 105. Urinalysis shows more red cells than white ce lls. CT scan of the abdomen and pelvis shows left-sided hydronephrosis secondary to 6.5 mm stone. ASSESSMENT/PLAN: 1. Left kidney stone. 6.5 mm with left-sided hydronephrosis. Will continue IV fluid, Flomax and noe n control with IV Dilaudid. Urology will see him in consultation. We will make him n.p.o. after mid night in case a procedure is required. 2. Acute renal failure. Baseline creatinine 1.3. Hydrate with IV fluids normal saline. 3. Lower extremity weakness. Angiogram for peripheral vascular disease. An MRI of the lumbar spine did not reveal the source. He has an EMG scheduled with Dr. Garcia later this week. Will consult PT OT. 4. Mild COPD exacerbation. We will start him on scheduled nebs and check a respiratory PCR. Tobacc o cessation should be advised. 5. HIV with undetectable viral load. Continue HAART therapy. 6. Coronary artery disease and peripheral vascular disease with a history of previous stents. Will hold his aspirin and Plavix in anticipation of possible procedure. CODE STATUS: Full. ADMISSION STATUS: 1. Will admit to observation. Reevaluate tomorrow. 2. DVT prophylaxis. Lovenox if he has a prolonged stay. /[id number]/MODL
[2017-12-22] MEDS: IPRATROPIUM/ALBUTEROL 3 ML DEYVIAL IH SCH ×5 (04:36→22:08)
[2017-12-22] MEDS: oxyCODONE IR 5 MG TAB PO PRN ×2 (06:24→12:55)
[2017-12-22 06:52] LABS: PLATELET COUNT 224 10^3/uL (150-400)
[2017-12-22] MEDS: PARoxetine HCL 20 MG TAB PO SCH (08:48)
[2017-12-22] MEDS: PRASUGREL HCL 10 MG TAB PO SCH (08:49)
[2017-12-22] MEDS: TAMSULOSIN HCL 0.4 MG CAP PO SCH (08:49)
[2017-12-22] MEDS: CYANO/VITAMIN B12 1000 MCG TAB PO SCH (08:49)
[2017-12-22] MEDS ORDERED: ENOXAPARIN 40 MG/0.4 ML SYR SC SCH (09:00)
[2017-12-22] MEDS ORDERED: LIDOCAINE 2% JELLY 20 ML (UROJECT) ONE (14:35)
[2017-12-22] MEDS ORDERED: IOPAMIDOL (ISOVUE-M 300) 15 ML VIAL ONE (14:36)
[2017-12-22] MEDS ORDERED: LR 1,000 ML IV ONE (14:37)
--- NOTE | 2017-12-22 15:15 | PDANEPAE ---
ANE History of Present Illness renal stone set for cysto ANE Past Medical History - Cardiovascular History Hx Hypertension: Yes Hx Arrhythmias: No Hx Chest Pain: No Hx Coronary Artery / Peripheral Vascular Disease: Yes Cardiovascular History Comment: ABD AORTIC ANEURYSM. 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 - Endocrine History Hx Diabetes: No Endocrine History Comment: PREDIAB - Renal History Hx Renal Disorders: Yes Renal History Comment: KIDNEY STONES - Liver History Hx Hepatic Disorders: No Hepatic History Comment: WEI - Neurological & Psychiatric Hx Hx Neurological and Psychiatric Disorders: Yes Neurological / Psychiatric History Comment: PAXIL - Cancer History Hx Cancer: No - Congenital Disorder History Hx Congenital Disorders: No - GI History Hx Gastrointestinal Disorders: No - Other Health History Other Health History: OCCAS ECZEMA R ANKLE - Chronic Pain History Chronic Pain: No (back) - Surgical History Prior Surgeries: CARDIAC CATHETER X6 W/5 STENTS. APPENDECTOMY. CHOLECYSTECTOMY. HERNIA REPAIR. CERVICAL SPINE X3. TONSILLECTOMY ANE Review of Systems Review of Systems: - Exercise capacity METS (RN): 2 METS ANE Patient History - Allergies Allergies/Adverse Reactions: Untmyxx-Aki-Nhv Reductase Inhibitor Allergy (Severe, Verified 12/21/17 16:26) THIGH CRAMPING - Home Medications Home Medications: celeCOXIB [Celebrex (*)] 200 mg PO HS 06/28/17 [Last Taken 12/20/17] Emtricitabine/Tenofov Alafenam [Descovy 200-25 mg Tablet] 1 each PO HS 08/15/17 [Last Taken 12/20/17] Nebivolol HCl [Bystolic 5 mg (*)] 5 mg PO HS 08/15/17 [Last Taken 12/20/17] Cholecalciferol Vit D3 [Vitamin D3 2000 units tab (OTC)] 2,000 units PO DAILY [Last Taken 12/21/17] Cyanocobalamin [Vitamin B12 (*)] 1,000 mcg PO DAILY 12/12/17 [Last Taken ] Dolutegravir Sodium [Tivicay] 50 mg PO HS 12/12/17 [Last Taken 12/20/17] Evolocumab [Repatha Syringe] 140 mg SC Q14D@09 12/12/17 [Last Taken 12/09/17] Herbals/Supplements -Info Only 1 ea PO DAILY 12/12/17 [Last Taken 12/21/17] Melatonin/Pyridoxine HCl (B6) [Melatonin 10 mg Tablet] 1 each PO HS 12/12/17 [ Last Taken 12/20/17] PARoxetine HCL [Paroxetine HCl] 40 mg PO DAILY 12/12/17 [Last Taken 12/21/17] - NPO status NPO Since - Liquids (Date): 12/22/17 NPO Since - Liquids (Time): 08:30 NPO Since - Solids (Date): 12/21/17 NPO Since - Solids (Time): 19:00 - Anes Hx Anes Hx: no prior problems - Smoking Hx Smoking Status: Heavy smoker - Alcohol Use Alcohol Use: None - Family Anes Hx Family Anes Hx: none Family Hx Anesthesia Complications: NEG ANE Labs/Vital Signs - Labs Result Diagrams: 12/22/17 06:15 12/22/17 06:15 - Vital Signs Blood Pressure: 123/76 Heart Rate: 74 Respiratory Rate: 18 O2 Sat (%): 93 Height: 177.8 cm Weight: 83.915 kg ANE Physical Exam - Airway Neck exam: decreased ROM Mallampati Score: Class 3 Mouth exam: normal dental/mouth exam - Pulmonary Pulmonary: expiratory wheeze, inspiratory crackles - Cardiovascular Cardiovascular: regular rate and rhythym - ASA Status ASA Status: III ANE Anesthesia Plan Anesthesia Plan: general endotracheal anesthesia, GA w LMA (LMA vs GETA)
[2017-12-22] MEDS ORDERED: PROPOFOL/EMULSION 500 MG/50 ML BOTTLE IV ONE (15:29)
[2017-12-22] MEDS ORDERED: fentaNYL 100 MCG/2 ML INJ ONE (15:29)
[2017-12-22] MEDS ORDERED: LIDOCAINE 2% 100 MG/5 ML SYR ONE (15:33)
[2017-12-22] MEDS ORDERED: LIDOCAINE 2% JELLY 5 ML TUBE ONE (15:33)
[2017-12-22] MEDS ORDERED: ONDANSETRON 4 MG/2 ML VIAL ONE (15:33)
[2017-12-22] MEDS ORDERED: DEXAMETHASONE 4 MG/ML VIAL ONE (15:33)
[2017-12-22] MEDS ORDERED: PHENYLEPHRINE HCL 100 MCG/ML SYR ONE (15:41)
[2017-12-22] MEDS ORDERED: ceFAZolin 1 GM VIAL ONE ×2 (15:54)
[2017-12-22] MEDS ORDERED: epHEDrine SULFATE 10 MG/ML SYR ONE (16:02)
--- NOTE | 2017-12-22 16:06 | HOSPPROG ---
Hospitalist Progress Note Assessment/Plan: 72 yo M presenting with severe left flank plan 2/2 large left sided kidney stone # left sided kidney stone: noted to be 6.5mm with associated left sided hydronephrosis on personal review of abd ct, IV fluids and flomax given overnight, plan for ureteral stent per urology today # SAL on ckd: improving and in the setting of obstructive uropathy as above, baseline creatinine approximately 1.3 # LE weakness: this has been present for some time, has had MRI spine negative and plan for EMG per neurology, will have pt/ot evaluate # copd: without e/o acute exacerbation, continue prn bds # HIV: continue HAART, viral load undetectable # IP status, will need > 48 hours stay for eval/mgmt of above Patient new to my care. Old records reviewed and summarized as above Subjective: no significant overnight events, awaiting procedure, pain remains severe, Objective: Vital Signs Temp Pulse Resp BP Pulse Ox 37.1 C 74 18 123/76 H 93 12/22/17 14:48 12/22/17 15:15 12/22/17 15:15 12/22/17 15:15 12/22/17 15:15 Microbiology 12/21/17 21:20 Respiratory Panel (PCR) - Final Nasal, Sinus - [place] Viral Transport No Organism Detected Laboratory Results 12/22/17 06:15 12/22/17 06:15 12/21/17 12/22/17 12/23/17 05:59 05:59 05:59 Intake Total 125 Output Total 600 Balance -475 awake alert nad anicteric op clear rrr no mrg cta b soft cva ttp left no cce warm dry well perfused oriented appropraite ICD10 Worksheet Patient Problems: Problems Problem Status Onset Angina at rest Acute Renal colic on left side Acute Ureterolithiasis Acute Renal insufficiency Acute S/P CABG x 4 Acute CAD S/P percutaneous coronary angioplasty Acute CAD (coronary artery disease) Chronic Chest pain Chronic HIV (human immunodeficiency virus infection) Chronic Hypertension Chronic
--- NOTE | 2017-12-22 16:23 | PDMN ---
Medical Necessity Medical necessity: Patient transitioned to inpatient status per physician note and CMS guidelines: LOS will be > 2 midnights for pending ureteral stent, ongoing IV hydration, ongoing IV opioids for severe L flank pain.
[2017-12-22] MEDS ORDERED: oxyCODONE IR 5 MG TAB PO PRN (16:44)
[2017-12-22] MEDS ORDERED: DEXAMETHASONE 4 MG/ML VIAL IVP PRN (16:44)
[2017-12-22] MEDS ORDERED: PHENYLEPHRINE HCL 100 MCG/ML SYR IVP PRN (16:44)
[2017-12-22] MEDS ORDERED: PROMETHAZINE HCL 25 MG/ML INJ IVP PRN (16:44)
[2017-12-22] MEDS ORDERED: HYDROCODONE/APAP 5/325 TAB PO PRN (16:44)
[2017-12-22] MEDS ORDERED: ALBUTEROL 3 ML DEYVIAL IH PRN (16:44)
[2017-12-22] MEDS ORDERED: LABETALOL HCL 5 MG/ML 20 ML MDV IVP PRN (16:44)
[2017-12-22] MEDS ORDERED: METOCLOPRAMIDE 10 MG/2 ML VIAL IVP PRN (16:44)
[2017-12-22] MEDS ORDERED: ONDANSETRON 4 MG/2 ML VIAL IVP PRN (16:44)
[2017-12-22] MEDS ORDERED: NALOXONE HCL 0.4 MG/ML INJ IVP PRN (16:44)
[2017-12-22] MEDS ORDERED: ACETAMINOPHEN 500 MG TAB PO PRN (16:44)
[2017-12-22] MEDS ORDERED: fentaNYL 100 MCG/2 ML INJ IVP PRN (16:44)
[2017-12-22] MEDS ORDERED: LR 500 ML IV PRN (16:44)
[2017-12-22] MEDS ORDERED: MEPERIDINE 25 MG/0.5 ML AMP IVP PRN (16:44)
--- NOTE | 2017-12-22 16:45 | POSTOPPROG ---
Post Op Note Date of Operation: 12/22/17 Surgeon: Jonathan Abrams Anesthesiologist: Dr. Sena Anesthesia: LMA Pre-op Diagnosis: left ureterolithiasis Procedure: ureteroscopy, laser, stent, fluroscopy Findings: stone, nephrocalcinosis, hydronephrosis, cloudy urine sent for culture Inf/Abcess present in the surg proc area at time of surgery?: No EBL: Minimal Drains: Other (stent and worrell) Specimen(s): none==dictated
--- NOTE | 2017-12-22 16:54 | GOP ---
[f rep st] OPERATIVE REPORT DATE OF OPERATION: 12/22/2017 SURGEON: Jonathan Abrams MD PREOPERATIVE DIAGNOSIS: Left ureteral calculus with hydronephrosis and pain. POSTOPERATIVE DIAGNOSIS: Left ureteral calculus with hydronephrosis and pain. PROCEDURE PERFORMED: FINDINGS: DESCRIPTION OF PROCEDURE: The gentleman underwent general anesthesia by Dr. Aiden Sena, prepped a nd draped in normal sterile fashion, after appropriate time-out, the scope was passed into the bladde r. He did have BPH with some obstruction. His left ureteral orifice was cannulated with a [place] c atheter. Retrograde revealed the obstructed kidney and stone. Then, I was able to pass a guidewire up into the renal pelvis and then ureteral access sheath up to the aortic bifurcation area. Then, at that point, the flexible ureteroscope was passed up under direct vision. It went into the kidney. Kidney had a lot of purulent appearing material. I aspirated that and sent for culture. Then, visua lization of the stone, I could identify the stone, had been pushed in a retrograde fashion into a jose yx and I fragmented it in multiple pieces so it was dusted. It had the appearance of being a uric ac id calculus. At that point, I placed a guidewire in the kidney. On extracting the scope and the ure teral access sheath, there was no disruption of the ureter. No residual stone areas that were of any caliber, and at that point, I passed a 4.7 multi-length stent that curled in the renal pelvis, curle d in the bladder, was confirmed by cystoscopy exam, did leave a string on the stent so that it could be pulled at a later date, and 16 Escobar catheter placed. He tolerated the procedure well. No specimen obtained. PROCEDURE PERFORMED: Cystoscopy, retrograde ureteropyelogram, ureteroscopy, laser manipulation, aspi ration of renal pelvis, urine for culture and sensitivity and placement of ureteral stent under fluor oscopic control. /[id number]/MODL
--- NOTE | 2017-12-22 18:57 | POSTANESTH ---
Post Anesthetic Evaluation Cardiovascular Status: Normal, Stable, Similar to Pre-Op Cond Respiratory Status: Tx Decrease in SpO2 Level of Consciousness/Mental Status: Can Participate in Eval, Mildly Sleepy, Arousable Pain Control: Adequate, Prn Tx Ordered Nausea/Vomiting Control: Adequate, Prn Tx Ordered Complications Possibly Related to Anesthesia: None Noted
[2017-12-22] MEDS: MELATONIN 3 MG TAB PO SCH (20:14)
[2017-12-22] MEDS: traZODone 50 MG TAB PO SCH (20:14)
[2017-12-22] MEDS ORDERED: NON-FORMULARY NEW DRUG (Emtricitabine/Tenofov Alafenam [Descovy 200-25 Mg Tablet] 1 EACH) PO SCH (21:00)
[2017-12-22] MEDS ORDERED: NON-FORMULARY NEW DRUG (Dolutegravir Sodium [Tivicay] 50 MG) PO SCH (21:00)
[2017-12-22] MEDS: NEBIVOLOL HCL 5 MG TAB PO SCH (21:45)
[2017-12-23] MEDS: oxyCODONE IR 5 MG TAB PO PRN (00:41)
[2017-12-23] MEDS: IPRATROPIUM/ALBUTEROL 3 ML DEYVIAL IH SCH (03:41)
[2017-12-23] MEDS: CYANO/VITAMIN B12 1000 MCG TAB PO SCH (08:19)
[2017-12-23] MEDS: PRASUGREL HCL 10 MG TAB PO SCH (08:20)
[2017-12-23] MEDS: PARoxetine HCL 20 MG TAB PO SCH (08:20)
[2017-12-23] MEDS: TAMSULOSIN HCL 0.4 MG CAP PO SCH (08:21)
[2017-12-23] MEDS ORDERED: IPRATROPIUM/ALBUTEROL 3 ML DEYVIAL IH PRN (08:38)
[2017-12-23] MEDS ORDERED: ENOXAPARIN 40 MG/0.4 ML SYR SC SCH (09:00)
--- NOTE | 2017-12-23 09:29 | SOAPPROG ---
SOAP Progress Note Assessment/Plan: Assessment: Ureterolithiasis Acute POD # 1 for ureteroscopy, need dc home and stent to be removed next week Plan: DC per hospitalist 12/23/17 11:05 Subjective: ok Objective: Vital Signs Temp Pulse Resp BP Pulse Ox 36.6 C 72 16 136/78 H 85 L 12/23/17 08:14 12/23/17 08:14 12/23/17 08:14 12/23/17 08:14 12/23/17 08:14 Microbiology 12/21/17 21:20 Respiratory Panel (PCR) - Final Nasal, Sinus - [place] Viral Transport No Organism Detected Laboratory Results 12/22/17 06:15 12/22/17 06:15 12/22/17 12/23/17 12/24/17 05:59 05:59 05:59 Intake Total 1150 Output Total 1865 Balance -715 Physical Exam - Physical Exam General Appearance: alert ICD10 Worksheet Patient Problems: Problems Problem Status Onset Renal colic on left side Acute Renal insufficiency Acute Ureterolithiasis Acute Angina at rest Acute CAD S/P percutaneous coronary angioplasty Acute S/P CABG x 4 Acute CAD (coronary artery disease) Chronic Chest pain Chronic HIV (human immunodeficiency virus infection) Chronic Hypertension Chronic
[2017-12-23 11:28] VITALS: BP 94/56
--- NOTE | 2017-12-23 11:36 | PDDCSUM ---
Discharge Summary Discharge Summary: Dates of service 12/22-12/23/17 Consultations: urology Procedures: abd CT, ureteral stent, cystoscopy, ureteroscopy Hospital course by problem 72 yo M presenting with severe left flank plan 2/2 large left sided kidney stone # left sided kidney stone: noted to be 6.5mm with associated left sided hydronephrosis on personal review of abd ct, IV fluids and flomax given overnight, s/p ureteral stentplacement with significant improvement in pain # SAL on ckd: improving and in the setting of obstructive uropathy as above, baseline creatinine approximately 1.3 # LE weakness: this has been present for some time, has had MRI spine negative and plan for EMG per neurology, will have pt/ot evaluate # copd: without e/o acute exacerbation, continue prn bds # HIV: continue HAART, viral load undetectable dc home > 35 min spent in dc more than half in coordination of care
--- NOTE | 2017-12-23 12:06 | ASMTCMCOM ---
CM Note CM Note Notes: Pt is a 72 y/o man admitted for kidney stones and renal insufficiency. 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 Pt lives alone. PT is recommending SNF vs inpatient rehab. CM met w/ pt for dispo planning. Pt is refusing HC, SNF and Inpatient Rehab. CM spoke w/ Dr. Panda and RAYRAY Conrad regarding this case. CM available for changes. Plan: Independent Date Signed: 12/23/2017 12:05 PM Electronically Signed By:JOSHUA Martinez
== END 2017-12-23 12:00 | disposition home or self-care (01) | DRG 660 ==
LOC: INTOOBSV 18:23 → OBSVTOIN 18:23 → F2W 12-22 08:30
PROVIDERS: ADMIT Internal Medicine; ATTEND Internal Medicine
DX: N13.2 Hydronephrosis with renal and ureteral calculous obstruction (principal); N17.9 Acute kidney failure, unspecified; J44.9 Chronic obstructive pulmonary disease, unspecified; Z21 Asymptomatic human immunodeficiency virus [HIV] infection status; N40.1 Benign prostatic hyperplasia with lower urinary tract symptoms; R53.1 Weakness; I10 Essential (primary) hypertension; Z95.1 Presence of aortocoronary bypass graft; E11.9 Type 2 diabetes mellitus without complications; E78.5 Hyperlipidemia, unspecified; G47.33 Obstructive sleep apnea (adult) (pediatric); I25.10 Atherosclerotic heart disease of native coronary artery without angina pectoris; Z95.820 Peripheral vascular angioplasty status with implants and grafts
CPT/HCPCS: 96374; 97116-GP; 97163-GP; 97165-GO; C1769; C1894; C2625; J0690; J1100; J1170; J1650; J2001; J2270; J2370; J2405; J2704; J3010; Q9967

== ENCOUNTER → 2018-01-17 | Outpatient (CLI) | payer OTHER | LOC: FIMAGING 10:20 | PROVIDERS: ATTEND Specialist | DX: N20.0 Calculus of kidney (principal) ==

== ENCOUNTER → 2018-06-19 | Outpatient (CLI) | payer OTHER | LOC: FIMAGING 08:42 | PROVIDERS: ATTEND Nurse Practitioner | DX: E29.1 Testicular hypofunction (principal); B20 Human immunodeficiency virus [HIV] disease; Z72.0 Tobacco use; R91.1 Solitary pulmonary nodule; R91.8 Other nonspecific abnormal finding of lung field; M85.88 Other specified disorders of bone density and structure, other site; J43.9 Emphysema, unspecified; J84.10 Pulmonary fibrosis, unspecified ==

== ENCOUNTER → 2018-09-11 | Outpatient (CLI) | payer OTHER | LOC: CIMAGING 09:04 | PROVIDERS: ATTEND Physician Assistant Medical | DX: N20.0 Calculus of kidney (principal); R93.5 Abnormal findings on diagnostic imaging of other abdominal regions, including retroperitoneum | CPT/HCPCS: 74178; Q9967; 82565-PO ==

== ENCOUNTER 2018-11-30 15:53 | Emergency (ER) | payer OTHER ==
[2018-11-30] MEDS ORDERED: NS 1,000 ML IV ONE (16:30)
[2018-11-30] MEDS ORDERED: IOPAMIDOL (ISOVUE-300) 100 ML BTL ONE (17:02)
== END 2018-11-30 19:15 | disposition home or self-care (01) ==
DX: K57.32 Diverticulitis of large intestine without perforation or abscess without bleeding (principal); B20 Human immunodeficiency virus [HIV] disease; J44.9 Chronic obstructive pulmonary disease, unspecified; I10 Essential (primary) hypertension; E86.9 Volume depletion, unspecified; F17.200 Nicotine dependence, unspecified, uncomplicated; Z95.5 Presence of coronary angioplasty implant and graft
CPT/HCPCS: 74177; 96360; 99285; Q9967

== ENCOUNTER 2018-12-14 12:19 | Observation (INO) | payer OTHER ==
[2018-12-14] MEDS ORDERED: OPIUM/BELLADONNA ALKALO SUPP PR PRN (12:40)
[2018-12-14] MEDS ORDERED: ceFAZolin 2 GM/DEXTROSE 100 ML IV ONE (12:40)
[2018-12-14] MEDS ORDERED: LR 1,000 ML IV ONE (12:41)
[2018-12-14] MEDS ORDERED: DIAZEPAM 10 MG/2 ML SYR ONE ×2 (13:27→13:35)
[2018-12-14] MEDS ORDERED: DIAZEPAM 10 MG/2 ML SYR IVP ONE (13:30)
[2018-12-14] MEDS ORDERED: MIDAZOLAM 2 MG/2 ML VIAL IVP ONE (14:08)
--- NOTE | 2018-12-14 14:08 | PDANEPAE ---
ANE History of Present Illness R ureteroscopy ANE Past Medical History - Cardiovascular History Hx Hypertension: Yes Hx Arrhythmias: No Hx Chest Pain: No Hx Coronary Artery / Peripheral Vascular Disease: Yes Hx CHF / Valvular Disease: No Hx Palpitations: No Cardiovascular History Comment: ABD AORTIC ANEURYSM. 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 neuropathy bilat feet - Cancer History Hx Cancer: No - Congenital Disorder History Hx Congenital Disorders: No - GI History Hx Gastrointestinal Disorders: Yes Gastrointestinal History Comment: diverticulitis on abx - Other Health History Other Health History: BOIS FORTE. glaucoma uses eye drops - Chronic Pain History Chronic Pain: No (back) - Surgical History Prior Surgeries: CARDIAC CATHETER X6 W/5 STENTS. APPENDECTOMY. CHOLECYSTECTOMY. HERNIA REPAIR. CERVICAL SPINE X3. TONSILLECTOMY. cabg x 4 2017. kidney stone/stent placed ANE Review of Systems Review of systems is: negative Review of Systems: - Exercise capacity METS (RN): 3 METS ANE Patient History - Allergies Allergies/Adverse Reactions: Qqnkevu-Eum-Rej Reductase Inhibitor Allergy (Severe, Verified 12/14/18 12:41) THIGH CRAMPING - Home Medications Home medications: home medication list seen and reviewed Home Medications: celeCOXIB [Celebrex (*)] 06/28/17 [Last Taken 12/13/18] Nebivolol HCl [Bystolic 5 mg (*)] 08/15/17 [Last Taken 11/13/18] Cholecalciferol Vit D3 [Vitamin D3 2000 units tab (OTC)] 12/12/17 [Last Taken 12/07/18] Cyanocobalamin [Vitamin B12 (*)] 12/12/17 [Last Taken 12/07/18] Evolocumab [Repatha Syringe] 12/12/17 [Last Taken 11/30/18] Herbals/Supplements -Info Only 12/12/17 [Last Taken 12/07/18] Melatonin/Pyridoxine HCl (B6) [Melatonin Tr 10 mg Tablet] 12/12/17 [Last Taken 12/13/18] PARoxetine HCL [Paroxetine HCl] 12/12/17 [Last Taken 11/14/18] Aspirin [Aspirin 81mg (*)] 12/07/18 [Last Taken 12/07/18] Epzicom Tablet 12/07/18 [Last Taken 12/13/18] Sustiva 12/07/18 [Last Taken 12/13/18] levOFLOXACIN [Levaquin] 12/07/18 [Last Taken 12/09/18] metroNIDAZOLE [Flagyl 500 mg (RX)] 12/07/18 [Last Taken Unknown] traZODone [traZODONE 50MG (*)] 12/07/18 [Last Taken 12/13/18] - NPO status NPO Since - Liquids (Date): 12/14/18 NPO Since - Liquids (Time): 12:00 NPO Since - Solids (Date): 12/13/18 NPO Since - Solids (Time): 20:00 - Anes Hx Anes Hx: no prior problems - Smoking Hx Smoking Status: Heavy smoker - Family Anes Hx Family Anes Hx: none Family Hx Anesthesia Complications: NONE ANE Labs/Vital Signs - Vital Signs Vital Signs: reviewed preoperatively; see RN documention for details Blood Pressure: 151/113 Heart Rate: 90 Respiratory Rate: 16 O2 Sat (%): 94 Height: 177.8 cm Weight: 83.915 kg ANE Physical Exam - Airway Neck exam: FROM Mouth exam: dentures - Pulmonary Pulmonary: reduced air movement - Cardiovascular Cardiovascular: regular rate and rhythym - ASA Status ASA Status: III ANE Anesthesia Plan Anesthesia Plan: GA w LMA
--- NOTE | 2018-12-14 14:13 | PDHPUP ---
History & Physical Update H&P update statement: This history and physical update is based on an assessment of the patient which was completed after admission or registration (within 24 hours), but prior to the surgery/procedure. H&P update: H&P reviewed & patient examined, no change in patient's condition since H&P completed (Heart - regular, Lung - normal )
[2018-12-14] MEDS ORDERED: fentaNYL 100 MCG/2 ML INJ ONE ×3 (14:33→18:21)
[2018-12-14] MEDS ORDERED: LIDOCAINE 2% 100 MG/5 ML SYR ONE (14:33)
[2018-12-14] MEDS ORDERED: ONDANSETRON 4 MG/2 ML VIAL ONE (14:33)
[2018-12-14] MEDS ORDERED: DEXAMETHASONE 4 MG/ML VIAL ONE (14:33)
[2018-12-14] MEDS ORDERED: PROPOFOL 200 MG/20 ML VIAL ONE (14:34)
[2018-12-14] MEDS ORDERED: IOPAMIDOL (ISOVUE-M 300) 15 ML VIAL ONE ×2 (14:56→15:26)
[2018-12-14] MEDS ORDERED: OPIUM/BELLADONNA ALKALO SUPP PR ONE ×2 (15:19→20:43)
[2018-12-14] MEDS ORDERED: HYDROCODONE/APAP 5/325 TAB PO PRN ×2 (15:25→17:43)
[2018-12-14] MEDS ORDERED: ENALAPRILAT DIHYDRATE 1.25 MG/ML VIAL IVP PRN (15:25)
[2018-12-14] MEDS ORDERED: PROMETHAZINE HCL 25 MG/ML INJ IVP PRN (15:25)
[2018-12-14] MEDS ORDERED: ALBUTEROL 3 ML DEYVIAL IH PRN (15:25)
[2018-12-14] MEDS ORDERED: DEXAMETHASONE 4 MG/ML VIAL IVP PRN (15:25)
[2018-12-14] MEDS ORDERED: HYDROmorphONE/DILAUDID 1 MG/ML INJ IVP PRN (15:25)
[2018-12-14] MEDS ORDERED: MEPERIDINE 25 MG/0.5 ML AMP IVP PRN (15:25)
[2018-12-14] MEDS ORDERED: oxyCODONE IR 5 MG TAB PO PRN (15:25)
[2018-12-14] MEDS ORDERED: NALOXONE HCL 0.4 MG/ML INJ IVP PRN ×2 (15:25→18:03)
[2018-12-14] MEDS ORDERED: LABETALOL HCL 5 MG/ML 20 ML MDV ONE ×2 (15:57→17:12)
--- NOTE | 2018-12-14 16:51 | POSTOPPROG ---
Post Op Note Date of Operation: 12/14/18 Surgeon: Conchita Almaguer Anesthesiologist: Jodee Anesthesia: GET(General Endotracheal) Pre-op Diagnosis: R ureteral filling defect, abnl cytology, hematuria, R stone Post-op Diagnosis: R proximal ureteral stricture, same Indication: R ureteral filling defect, abnl cytology, hematuria, R stone Procedure: Cysto,RURS, laser, basket ext stone, RGPs, renal washings Findings: R prox ureter stricture, difficult stone removal, no tumor seen Inf/Abcess present in the surg proc area at time of surgery?: No EBL: Minimal Complications: None,pt tolerated procedure well Specimen(s): stone, R/L renal pelvis cytologies
[2018-12-14] MEDS: LABETALOL HCL 5 MG/ML 20 ML MDV IVP PRN ×3 (17:15→18:16)
[2018-12-14] MEDS ORDERED: ACETAMINOPHEN 325 MG TAB PO PRN (17:43)
[2018-12-14] MEDS ORDERED: ONDANSETRON 4 MG/2 ML VIAL IVP PRN (17:43)
[2018-12-14] MEDS ORDERED: NS 1,000 ML IV SCH ×2 (17:45→18:15)
[2018-12-14] MEDS ORDERED: HEPARIN 10,000 UNIT/10 ML MDV (1,000 UNIT/ML) IVP PRN (18:03)
[2018-12-14] MEDS ORDERED: MIDAZOLAM 2 MG/2 ML VIAL IVP PRN (18:03)
[2018-12-14] MEDS ORDERED: ALTEPLASE 2 MG VIAL IVP PRN (18:03)
[2018-12-14] MEDS ORDERED: FLUMAZENIL 0.5 MG/5 ML MDV IVP PRN (18:03)
[2018-12-14] MEDS ORDERED: fentaNYL 100 MCG/2 ML INJ IVP PRN (18:03)
[2018-12-14] MEDS ORDERED: MEPERIDINE 25 MG/ML SYR IVP PRN (18:03)
[2018-12-14] MEDS ORDERED: PROTAMINE SULFATE 50 MG/5 ML VIAL IVP PRN (18:03)
[2018-12-14] MEDS ORDERED: IOPAMIDOL (ISOVUE-300) 100 ML BTL ONE (18:05)
[2018-12-14] MEDS ORDERED: FLUMAZENIL 0.5 MG/5 ML MDV IVP ONE (18:20)
[2018-12-14] MEDS ORDERED: NALOXONE HCL 0.4 MG/ML INJ ONE (18:21)
[2018-12-14] MEDS ORDERED: MIDAZOLAM 2 MG/2 ML VIAL ONE (18:21)
[2018-12-14] MEDS: fentaNYL 100 MCG/2 ML INJ IVP PRN ×3 (18:22→19:56)
--- NOTE | 2018-12-14 18:44 | GOP ---
[f rep st] OPERATIVE REPORT DATE OF OPERATION: 12/14/2018 SURGEON: Conchita Almaguer MD ANESTHESIA: General endotracheal. ANESTHESIOLOGIST: Jerry Ellsworth MD PREOPERATIVE DIAGNOSIS: Right ureteral filling defect, abnormal urine cytology , gross hematuria, right renal stone. POSTOPERATIVE DIAGNOSIS: Right proximal ureteral stricture, right ureteral filling defect, abnormal urine cytology, gross hematuria, right renal stone. PROCEDURE PERFORMED: cystoscopy, bilateral retrograde pyelograms, bilateral ureteral/renal pelvis washings for cytology, right ureteroscopy, laser lithotripsy. FINDINGS: no bladder abnormality. Left retrograde pyelogram without any filling defect or abnormality seen on retrograde. Right retrograde pyelogram showing right UPJ narrowing. Very narrow UPJ seen on ureteroscopy but able to pass scope over wire safely. Small stone lasered, became stuck in the narrow UPJ ureter, but able to be stone basket extracted after lasering. During basket extraction, there was loss of wire access and I was unable to readvance the wire in to the right renal pelvis and thus unable to place a stent due to ureteral edema. SPECIMENS: Right and left renal pelvis cytologies and right renal stone. INDICATIONS: Patient is a complicated 73-year-old gentleman with history of coronary artery disease, HIV on antivirals, COPD, current smoker who presented to me for evaluation of gross hematuria. He had abnormal urine cytology and a CT urogram showing a filling defect in the right proximal ureter, and also right renal stone. The plan was to do differential cytologies, retrograde, as well as laser lithotripsy for the stone. The rationale, risks, and benefits were discussed in detail including bleeding, infection, pain, injury to the urethra, the bladder, the ureters, need for subsequent procedures, inability to gain access to the filling defect or the stone, inability to place a stent, need for percutaneous nephrostomy if unable to place a stent, and need for subsequent procedures. He understood all these risks and I went over them in detail and he agreed to proceed. DESCRIPTION OF PROCEDURE: The patient was taken back to the cystoscopy suite, placed on the cystoscopy table in a supine position. General anesthesia induced without complication. Time-out performed and core measures satisfied, including placement of a Fatuma Hugger SCDs and administration of 2 g Ancef antibiotics. He was brought to the end of the table, placed in dorsal lithotomy position. All pressure points padded. Genitalia draped and prepped in standard surgical fashion with Betadine. A rigid cystoscope easily cannulated the urethral meatus and was advanced atraumatically into the bladder. Pancystoscopy performed with 30 degree lens, there were no abnormal lesions. I did see some red spots during the office cystoscopy, but the spots were not present at this time. There was no lesions or masses or abnormalities to biopsy. I cannulated the left collecting system with a 5-Cymro open-ended catheter, advanced the catheter over a wire into the left collecting system and obtained renal pelvis washing. I then did a retrograde pyelogram and did not see any filling defects in the left collecting system - No abnormalities in the ureter , and the renal pelvis was not dilated, and the calices were sharp and without any filling defects. I then switched to a new wire and to a new 5-Cymro open- ended catheter to not contaminate side to side and did ureteral washings on the right kidney and sent the right washing separately. I then did a retrograde and there was narrowing at the ureteral ureteropelvic junction area, but there was no filling defect or no area of concern on the retrograde, except for this narrowing that was very short at the ureteropelvic junction. I then proceed with placing 2 Glidewires in the right collecting system and then advanced a semi-rigid ureteroscope into the ureter, and I looked as far up to the UPJ and there was narrowing, I could not go all the way in to the renal pelvis. There was narrowing at the UPJ, but otherwise, the ureter distal to the UPJ was without tumor, no lesions or masses, and I was not concerned about the findings that were seen on the CT scan which had suggested a long stricture of abnormality as I encountered no long stricture or filling defect with the semirigid ureteroscopy. So at this point, I felt I would go up with a ureteral access sheath and try to look into the renal pelvis. I advanced a 12/14-Cymro ureteral access sheath over 1 of the wires with fluoroscopic guidance and it did not advance easily past L3, and so I then took a flexible scope and was able to navigate over a wire past this short segment of narrowing at the UPJ and then get into the collecting system. There were no tumors in the renal pelvis or calyces, but a mildly dilated system. I found the stone, it appeared basketable. I was able to basket this, but it was very triangular in shape and sharp, and so I attempted to first remove it with just the basket, but it did get stuck at this narrow area of the ureteropelvic junction. I was not able to move it back into the renal pelvis, nor move it distally, so I advanced a laser fiber to the level of the stone. I did laser it into small fragments, but I still had difficulty getting this stone fragment to advance distally. I continued to laser the stone in the basket and eventually, I was able to pull the stone out with the access sheath with the basket with the stone in the basket; however, I lost wire access to the right collecting system when I extracted the stone and basket. I attempted to do a flexible ureteroscopy back up to the area or narrowig and was not able to get past the narrowing. It had been edematous from me lasering the stone in the narrow ureter and I could not visualize the lumen at the point of edema, so I at this point felt IR would need to place a percutaneous nephrostomy tube and hopefully place a nephroureteral stent. At this point, I removed the scopes. The procedure was considered complete. I emptied his bladder and considered the consent procedure complete. He was awoken from anesthesia and transferred to PACU in good condition. I contacted IR and IR would be able to place a nephrostomy tube, possibly a nephroureteral stent. The patient tolerated the procedure well. /[id number]/MODL MTDD
--- NOTE | 2018-12-14 19:24 | PDRADPN ---
Radiology Procedure Note Date of Procedure: 12/14/18 Radiologist: Anna Walters Anesthesia: IV Sedation Pre-op Diagnosis: rt ureteral stone Post-op Diagnosis: same Indication: obstruction Procedure: RT perc neph tube placement Inf/Abcess present in the surg proc area at time of surgery?: No
[2018-12-14] MEDS ORDERED: NICOTINE 21 MG/24 HR PATCH TD ONE (20:51)
[2018-12-14] MEDS ORDERED: OXYBUTYNIN 5 MG EXT REL TAB PO SCH (22:00)
[2018-12-14] MEDS ORDERED: OXYBUTYNIN CHLORIDE 5 MG TAB PO SCH (22:30)
[2018-12-14] MEDS: ceFAZolin 2 GM/DEXTROSE 100 ML IV SCH (23:14)
[2018-12-14] MEDS: OXYBUTYNIN CHLORIDE 5 MG TAB PO SCH (23:33)
[2018-12-15] MEDS: HYDROmorphONE/DILAUDID 1 MG/ML INJ IVP PRN ×2 (02:02→06:36)
[2018-12-15] MEDS: ceFAZolin 2 GM/DEXTROSE 100 ML IV SCH (07:36)
[2018-12-15] MEDS: OXYBUTYNIN CHLORIDE 5 MG TAB PO SCH (10:06)
[2018-12-15 11:43] VITALS: BP 124/75
--- NOTE | 2018-12-15 15:38 | ASMTLACE ---
LACE Length of stay for Answers: 1 day current admission Acuity / Level of Answers: No Care: Did the patient have an inpatient admission? Comorbidities - select Answers: Chronic pulmonary disease all that apply Coronary Artery Disease Peripheral vascular disease Other Notes: HTN; HLD # of Emergency department Answers: 1-2 visits in the last 6 months Score: 8 Date Signed: 12/15/2018 03:37 PM Electronically Signed By:LUCIA Gordon
--- NOTE | 2018-12-15 15:39 | ASMTCMCOM ---
CM Note CM Note Notes: Pt had planned urology procedure. No need for therapies. Pt medically stable for d/c, no CM d/c needs identified. Date Signed: 12/15/2018 03:38 PM Electronically Signed By:LUCIA Gordon
== END 2018-12-15 12:33 | disposition home or self-care (01) ==
LOC: FSGY 12:19 → F3E 17:44 → F1N 22:04
PROVIDERS: ADMIT Urology; ATTEND Urology
PROC: 0T9030Z Drainage of Right Kidney with Drainage Device, Percutaneous Approach (ICD-10-PCS; 2018-12-14)
PROC: 0TC08ZZ Extirpation of Matter from Right Kidney, Via Natural or Artificial Opening Endoscopic (ICD-10-PCS; principal; 2018-12-14 13:45)
DX: N20.1 Calculus of ureter (principal); I25.10 Atherosclerotic heart disease of native coronary artery without angina pectoris; J44.9 Chronic obstructive pulmonary disease, unspecified; Z21 Asymptomatic human immunodeficiency virus [HIV] infection status
CPT/HCPCS: 52334; 52353; 76000; 99152; C1729; C1758; C1769; C1894; G0378; J0690; J1100; J1170; J1644; J2001; J2250; J2405; J2704; J3010; J3360; Q9967; 82365-90; J2310

== ENCOUNTER → 2018-12-18 | Day surgery (SDC) | payer OTHER ==
[~2018-12-18] MED LIST changes: +ACETAMINOPHEN 325 MG TAB PO PRN; +FLUMAZENIL 0.5 MG/5 ML MDV IVP PRN; +IOPAMIDOL (ISOVUE-300) 100 ML BTL ONE; -IOPAMIDOL (ISOVUE-370) 150 ML BTL IV ONE; +MIDAZOLAM 2 MG/2 ML VIAL IVP PRN; +NALOXONE HCL 0.4 MG/ML INJ IVP PRN; +NS 1,000 ML IV SCH; +ONDANSETRON 4 MG/2 ML VIAL IVP PRN; +fentaNYL 100 MCG/2 ML INJ IVP PRN; +levOFLOXACIN 500 MG/DEXTROSE 100 ML IV ONE
[2018-12-18 13:01] LABS: INR 1.01 (0.83-1.16); PROTIME(PATIENT) 12.9 SEC (12.0-15.0)
--- NOTE | 2018-12-18 13:38 | PDPROPOC ---
Sedation Plan of Care Sedation Plan of Care: vital signs stable, mental status noted, patient educated of risks, benefits, alternatives, patient can tolerate sedation ASA Classification: ASA 2 Planned drugs: fentanyl, midazolam Mallampati Score: Class 3 Mallampati Reference Image: Patient passed 3-3-2 rule?: Yes
--- NOTE | 2018-12-18 13:39 | PDRADPRE ---
Radiology History & Physical Indication for procedure: other (Ureteral stricture - inability to pass wire across ureter during previous PCN tube placement. Plan for ureteral stent placement. ) Home medications: celeCOXIB [Celebrex (*)] 200 mg PO HS 06/28/17 [Last Taken 12/17/18 21:00] Cholecalciferol Vit D3 [Vitamin D3 2000 units tab (OTC)] 2,000 units PO DAILY [Last Taken 12/18/18 07:00] Cyanocobalamin [Vitamin B12 (*)] 1,000 mcg PO DAILY 12/12/17 [Last Taken 07:00] Evolocumab [Repatha Syringe] 140 mg SQ Q14D 12/12/17 [Last Taken 11/30/18] PARoxetine HCL [Paroxetine HCl] 40 mg PO DAILY 12/12/17 [Last Taken 12/18/18 07: 00] Abacavir Sulfate/Lamivudine [Epzicom Tablet] 1 each PO HS 12/07/18 [Last Taken 12/17/18 21:00] Aspirin [Aspirin 81mg (*)] 81 mg PO DAILY 12/07/18 [Last Taken 12/17/18 07:00] Efavirenz [Sustiva] 600 mg PO HS 12/07/18 [Last Taken 12/17/18 21:00] traZODone [traZODONE 50MG (*)] 50 mg PO HS 12/07/18 [Last Taken 12/17/18 21:00] Fludrocortisone Acetate [Florinef] 0.1 mg PO HS 12/15/18 [Last Taken 12/17/18 21 :00] Herbals/Supplements -Info Only 1 ea PO DAILY 12/15/18 [Last Taken 12/18/18] Melatonin Tr 10 mg Tablet 10 mg PO HS 12/18/18 [Last Taken 12/17/18] Allergies/Adverse Reactions: Jtgruip-Tqt-Gzc Reductase Inhibitor Allergy (Severe, Verified 12/14/18 12:41) THIGH CRAMPING Mental status: A&Ox3 Heart exam: regular rate and rhythm Lungs exam: clear to auscultation Mallampati Score: Class 3
--- NOTE | 2018-12-18 14:19 | PDRADPN ---
Radiology Procedure Note Date of Procedure: 12/18/18 Radiologist: Silverio Borges Anesthesia: IV Sedation Pre-op Diagnosis: Ureteral stricture Post-op Diagnosis: Ureteral stricture Indication: Ureteral Stricture Procedure: Right Double JJ ureteral stent placement Finding(s): Persisetent extravasation from UPJ with successful recanalization of ureter and placement of JJ ureteral stent. Followup per urology for cystoscopic managment. Inf/Abcess present in the surg proc area at time of surgery?: No
[2018-12-18 15:20] VITALS: BP 152/94
== END | disposition home or self-care (01) ==
LOC: FIMAGING 12:05
PROVIDERS: ATTEND Urology
PROC: 0T777DZ Dilation of Left Ureter with Intraluminal Device, Via Natural or Artificial Opening (ICD-10-PCS; principal; 2018-12-18 14:32)
PROC: 0TP5X0Z Removal of Drainage Device from Kidney, External Approach (ICD-10-PCS; principal; 2018-12-18 14:32)
DX: N99.71 Accidental puncture and laceration of a genitourinary system organ or structure during a genitourinary system procedure (principal)
CPT/HCPCS: 50389; 50693; 99152; C1729; C1758; C1769; J1956; J2250; J2310; J3010; Q9967

== ENCOUNTER 2019-01-03 17:50 | Emergency (ER) | payer OTHER | END 2019-01-03 20:13 | disposition home or self-care (01) ==